=== PATIENT | male | born 1955 | race African-American/Black ===

== ENCOUNTER 2016-06-18 14:06 | Emergency (ER) | payer OTHER, MEDICAID ==
[~2016-06-18] VITALS: Ht 177.8 cm; Wt 65.0 kg
[~2016-06-18 14:06] MED LIST: ALBU2.5V13 INH; ALBU6.7H INH; ALPR-395 PO; ASPI-1035 PO; AZIT500T5 PO; CARI250T PO; CYPR4TAB33 PO; D-ME118S13 PO; DIAZ10TA4 PO; DICL75TA5 PO; FAMO20TA96 PO; FAMO40TA7 PO; FLUT1DIS3 INH; HYDR-1348 PO; METF500T PO; MULT-1146 PO; MULT-348 PO; PRAV40TA58 PO; TAMS0.4C31 PO
[2016-06-18] MEDS ORDERED: IPRATROPIUM/ALBUTEROL 0.5-3(2.5)MG/3ML NEB HHN ONE (15:30)
[2016-06-18 15:46] LABS: CLARITY URINE CLOUDY (CLEAR); COLOR URINE YELLOW (YELLOW); GLUCOSE URINE NEGATIVE (NEGATIVE); KETONES URINE NEGATIVE (NEGATIVE); LEUKOCYTE ESTERASE URINE NEGATIVE (NEGATIVE); NITRITE URINE NEGATIVE (NEGATIVE); OCCULT BLOOD URINE NEGATIVE (NEGATIVE); PH URINE 7.5 (4.5-8.0); PROTEIN URINE NEGATIVE (NEGATIVE); SPECIFIC GRAVITY URINE 1.016 (1.005-1.030); UROBILINOGEN URINE 0.2 E.U./dL (0.2-1.0)
[2016-06-18 15:50] LABS: BACTERIA URINE NONE SEEN; CALCIUM PHOSPHATE CRYSTALS UR NONE SEEN /lpf; RBC URINE NONE SEEN /hpf (0-2); SQUAMOUS EPITHELIAL CELL URINE NONE SEEN /lpf (RARE/1+); WAXY CASTS URINE NONE SEEN /lpf; WBC URINE NONE SEEN /hpf (0-2); YEAST URINE NONE SEEN
[2016-06-18 17:17] LABS: BASOPHILS % 0.8 % (0.0-2.0); HEMATOCRIT. 38.4 % (42.0-52.0); HEMOGLOBIN. 12.9 g/dL (14.0-18.0); LYMPHOCYTES % 27.6 % (20.0-50.0); MEAN CORPUSCULAR HEMOGLOBIN 30.8 pg (28.0-32.0); MEAN CORPUSCULAR HGB CONC 33.7 g/dL (31.0-37.0); MEAN CORPUSCULAR VOLUME 91.3 fL (80.0-94.0); MEAN PLATELET VOLUME 7.3 fl (7.4-10.4); MONOCYTES % 11.4 % (2.0-8.0); NEUTROPHILS % 55.2 % (40.0-76.0); PLATELET 225 x1000/uL (130-400); RED BLOOD CELL COUNT 4.21 mill/uL (4.7-6.1); RED CELL DISTRIBUTION WIDTH 14.4 % (11.6-14.6); WHITE BLOOD COUNT 4.7 x1000/uL (4.5-11.0)
[2016-06-18 17:21] LABS: INR 1.1; PROTHROMBIN TIME 11.8 sec
[2016-06-18] MEDS ORDERED: ONDANSETRON 4MG ODT PO ONE (17:30)
[2016-06-18] MEDS ORDERED: MORPHINE SULFATE 10 MG/ML CPJ IM ONE (17:30)
[2016-06-18 17:56] LABS: INDEX HEMOLYSI 1 (1-3)
[2016-06-18 18:10] LABS: ALANINE AMINOTRANSFERASE 30 IU/L (13-61); ALBUMIN 3.1 g/dL (3.4-5.0); ANION GAP 10; CALCIUM 8.8 mg/dL (8.5-10.1); CARBON DIOXIDE 28 mEq/L (21-32); CHLORIDE 106 mEq/L (98-107); NT PRO B-TYPE NATRIURETIC PEP 98 pg/mL (5-125); UREA NITROGEN BLOOD 12 mg/dL (7-21); eGFR > 60 mL/min (>60)
[2016-06-18 18:11] LABS: LIPASE 157 IU/L (73-393)
[2016-06-18] MEDS ORDERED: HYDROCODONE/ACETAMINOPHEN 5/325MG TABLET PO ONE (18:30)
[2016-06-18 18:31] VITALS: BP 146/95
== END 2016-06-18 19:21 | disposition home or self-care (01) ==
LOC: ER 14:24
DX: R55 Syncope and collapse (principal); M25.512 Pain in left shoulder; M25.561 Pain in right knee; M25.562 Pain in left knee; J45.909 Unspecified asthma, uncomplicated; J44.9 Chronic obstructive pulmonary disease, unspecified; G43.909 Migraine, unspecified, not intractable, without status migrainosus; Z88.0 Allergy status to penicillin; Z88.2 Allergy status to sulfonamides; Z79.82 Long term (current) use of aspirin; Z79.01 Long term (current) use of anticoagulants
CPT/HCPCS: 36415; 70450; 71010; 73030; 73562; 73590; 80053; 81001; 83690; 83880; 84484; 85025; 85610; 93005; 94640; 96372; 99285; J2270; Q0162; J7620

== ENCOUNTER 2016-11-01 20:50 | Emergency (ER) | payer OTHER, MEDICAID ==
[~2016-11-01] VITALS: Ht 182.9 cm; Wt 66.0 kg
[~2016-11-01 20:50] MED LIST changes: -ALPR-395 PO; -ASPI-1035 PO; +ASPI-1158 PO; -AZIT500T5 PO; -CYPR4TAB33 PO; -D-ME118S13 PO; -DIAZ10TA4 PO; -DICL75TA5 PO; -FAMO20TA96 PO; -FAMO40TA7 PO; -FLUT1DIS3 INH; -HYDR-1348 PO; -METF500T PO; -MULT-1146 PO; -MULT-348 PO; -PRAV40TA58 PO; -TAMS0.4C31 PO
[2016-11-01] MEDS ORDERED: SODIUM CHLORIDE 0.9% 1,000 ML IV ONE (21:22)
[2016-11-01] MEDS ORDERED: KETOROLAC 15MG/ML VIAL IV ONE (21:30)
[2016-11-01 21:42] LABS: BASOPHILS % 0.4 % (0.0-2.0); HEMOGLOBIN. 13.9 g/dL (14.0-18.0); LYMPHOCYTES % 14.6 % (20.0-50.0); MEAN CORPUSCULAR HEMOGLOBIN 30.5 pg (28.0-32.0); MEAN CORPUSCULAR VOLUME 90.3 fL (80.0-94.0); MEAN PLATELET VOLUME 7.4 fl (7.4-10.4); MONOCYTES % 7.2 % (2.0-8.0); NEUTROPHILS % 75.8 % (40.0-76.0); PLATELET 214 x1000/uL (130-400); RED BLOOD CELL COUNT 4.54 mill/uL (4.7-6.1); RED CELL DISTRIBUTION WIDTH 14.5 % (11.6-14.6)
[2016-11-01 21:49] LABS: INR 1.1; PROTHROMBIN TIME 11.4 sec
[2016-11-01 21:55] LABS: AMMONIA 21 uMol/L (<32)
[2016-11-01 21:59] LABS: CARBON DIOXIDE 35 mEq/L (21-32); CHLORIDE 102 mEq/L (98-107); ETHANOL BLOOD < 10 mg/dL; TROPONIN I < 0.02 ng/mL (0.00-0.04)
[2016-11-01] MEDS ORDERED: MORPHINE SULFATE 4 MG/ML CPJ (NOT FOR IM USE) IV ONE (22:30)
[2016-11-01 22:32] LABS: CLARITY URINE CLOUDY (CLEAR); COLOR URINE YELLOW (YELLOW); KETONES URINE NEGATIVE (NEGATIVE); LEUKOCYTE ESTERASE URINE NEGATIVE (NEGATIVE); NITRITE URINE NEGATIVE (NEGATIVE); OCCULT BLOOD URINE NEGATIVE (NEGATIVE); PH URINE 7.5 (4.5-8.0); PROTEIN URINE NEGATIVE (NEGATIVE); SPECIFIC GRAVITY URINE 1.013 (1.005-1.030); UROBILINOGEN URINE 0.2 E.U./dL (0.2-1.0)
[2016-11-01 22:42] LABS: *AMPHETAMINES SCREEN URINE NEGATIVE (NEGATIVE); *BARBITURATES SCREEN URINE NEGATIVE (NEGATIVE); *BENZODIAZEPINES SCREEN URINE NEGATIVE (NEGATIVE); *COCAINE SCREEN URINE NEGATIVE (NEGATIVE); CANNABINOID URINE SCREEN NEGATIVE (NEGATIVE); METHADONE URINE SCREEN NEGATIVE (NEGATIVE); OPIATES URINE SCREEN NEGATIVE (NEGATIVE); PHENCYCLIDINE URINE SCREEN NEGATIVE (NEGATIVE)
[2016-11-01 23:49] VITALS: BP 146/87
== END 2016-11-01 23:55 | disposition home or self-care (01) ==
LOC: ER 20:51
DX: R51 Headache (principal); E11.65 Type 2 diabetes mellitus with hyperglycemia; J44.9 Chronic obstructive pulmonary disease, unspecified; F17.200 Nicotine dependence, unspecified, uncomplicated; F12.10 Cannabis abuse, uncomplicated; F43.10 Post-traumatic stress disorder, unspecified; Z88.0 Allergy status to penicillin; Z79.82 Long term (current) use of aspirin
CPT/HCPCS: 36415; 70450; 71010; 80053; 80305; 80307; 80329; 81001; 82140; 83690; 83880; 84443; 84484; 85025; 85610; 93005; 96361; 96374; 96375; 99285; G0482; J1885; J2270; J7030

== ENCOUNTER 2017-04-03 15:47 | Emergency (ER) | payer OTHER, MEDICAID ==
[~2017-04-03] VITALS: Ht 185.4 cm; Wt 63.0 kg
[2017-04-03 15:55] VITALS: BP 106/63
== END 2017-04-03 21:32 | disposition left against medical advice (07) ==
LOC: ER 16:17
DX: R06.02 Shortness of breath (principal); J44.9 Chronic obstructive pulmonary disease, unspecified; E11.9 Type 2 diabetes mellitus without complications; G43.909 Migraine, unspecified, not intractable, without status migrainosus; F12.10 Cannabis abuse, uncomplicated; Z79.82 Long term (current) use of aspirin; Z88.0 Allergy status to penicillin; Z88.2 Allergy status to sulfonamides; Z98.890 Other specified postprocedural states
CPT/HCPCS: 99281

== ENCOUNTER 2018-07-18 07:40 | Emergency (ER) | payer MEDICARE, MEDICAID ==
[~2018-07-18] VITALS: Ht 185.4 cm; Wt 67.0 kg
[2018-07-18 09:10] VITALS: BP 133/78
== END 2018-07-18 09:12 | disposition home or self-care (01) ==
LOC: ER 07:40
DX: G89.29 Other chronic pain (principal); I10 Essential (primary) hypertension; M25.512 Pain in left shoulder; J45.909 Unspecified asthma, uncomplicated; Z76.0 Encounter for issue of repeat prescription; Z88.0 Allergy status to penicillin; Z88.2 Allergy status to sulfonamides; Z79.899 Other long term (current) drug therapy
CPT/HCPCS: 99283

== ENCOUNTER 2018-07-23 15:54 | Emergency (ER) | payer MEDICARE, MEDICAID ==
[~2018-07-23] VITALS: Ht 185.4 cm; Wt 68.2 kg
[2018-07-23 18:20] LABS: BASOPHILS % 0.6 % (0.0-2.0); CHLORIDE 102 mEq/L (98-107); EOSINOPHILS % 1.6 % (0.0-5.0); HEMATOCRIT. 43.7 % (42.0-52.0); HEMOGLOBIN. 14.6 g/dL (14.0-18.0); LYMPHOCYTES % 14.4 % (20.0-50.0); MEAN CORPUSCULAR HEMOGLOBIN 30.5 pg (28.0-32.0); MEAN CORPUSCULAR VOLUME 91.1 fL (80.0-94.0); MEAN PLATELET VOLUME 7.5 fl (7.4-10.4); MONOCYTES % 7.4 % (2.0-8.0); PLATELET 251 x1000/uL (130-400); RED CELL DISTRIBUTION WIDTH 13.4 % (11.6-14.6)
[2018-07-23 18:24] LABS: ETHANOL BLOOD < 10 mg/dL
[2018-07-23] MEDS ORDERED: ACETAMINOPHEN 325MG TABLET PO STA (19:17)
[2018-07-23 20:52] LABS: CLARITY URINE CLEAR (CLEAR); COLOR URINE YELLOW (YELLOW); KETONES URINE 1+ (NEGATIVE); LEUKOCYTE ESTERASE URINE NEGATIVE (NEGATIVE); NITRITE URINE NEGATIVE (NEGATIVE); OCCULT BLOOD URINE NEGATIVE (NEGATIVE); PROTEIN URINE NEGATIVE (NEGATIVE); SPECIFIC GRAVITY URINE 1.021 (1.005-1.030); UROBILINOGEN URINE 0.2 E.U./dL (0.2-1.0)
[2018-07-23] MEDS ORDERED: KETOROLAC 30MG/ML VIAL IV NR (20:59)
[2018-07-23] MEDS ORDERED: METOCLOPRAMIDE HCL 10MG/2ML VIAL IV NR (21:00)
[2018-07-23 21:11] LABS: *AMPHETAMINES SCREEN URINE NEGATIVE (NEGATIVE); *BARBITURATES SCREEN URINE NEGATIVE (NEGATIVE); *BENZODIAZEPINES SCREEN URINE PRESUMTIVE POSITIVE (NEGATIVE); *COCAINE SCREEN URINE PRESUMTIVE POSITIVE (NEGATIVE); METHADONE URINE SCREEN NEGATIVE (NEGATIVE); OPIATES URINE SCREEN PRESUMTIVE POSITIVE (NEGATIVE)
[2018-07-23 21:12] LABS: CANNABINOID URINE SCREEN NEGATIVE (NEGATIVE); PHENCYCLIDINE URINE SCREEN NEGATIVE (NEGATIVE)
[2018-07-24 00:05] VITALS: BP 119/73
== END 2018-07-24 00:05 | disposition home or self-care (01) ==
LOC: ER 15:54
DX: G44.89 Other headache syndrome (principal); F19.10 Other psychoactive substance abuse, uncomplicated; E11.9 Type 2 diabetes mellitus without complications; F17.200 Nicotine dependence, unspecified, uncomplicated; J44.9 Chronic obstructive pulmonary disease, unspecified; Z88.0 Allergy status to penicillin; Z88.2 Allergy status to sulfonamides; Z98.890 Other specified postprocedural states
CPT/HCPCS: 36415; 80048; 80305; 80320; 81003; 85025; 96374; 96375; 99283; J1885; J2765; G0480

== ENCOUNTER 2018-07-29 05:29 | Emergency (ER) | payer MEDICARE, MEDICAID ==
[~2018-07-29] VITALS: Ht 185.4 cm; Wt 68.0 kg
[2018-07-29 06:45] VITALS: BP 121/60
== END 2018-07-29 06:45 | disposition home or self-care (01) ==
LOC: ER 05:29
DX: S91.204A Unspecified open wound of right lesser toe(s) with damage to nail, initial encounter (principal); E11.9 Type 2 diabetes mellitus without complications; J45.909 Unspecified asthma, uncomplicated; W26.9XXA Contact with unspecified sharp object(s), initial encounter; Y93.9 Activity, unspecified; Y92.9 Unspecified place or not applicable; Z88.0 Allergy status to penicillin; Z88.2 Allergy status to sulfonamides; Z79.82 Long term (current) use of aspirin
CPT/HCPCS: 99283

== ENCOUNTER 2018-09-11 07:28 | Emergency (ER) | payer MEDICARE, OTHER, MEDICAID ==
[~2018-09-11] VITALS: Ht 185.4 cm; Wt 69.0 kg
[2018-09-11] MEDS ORDERED: HYDROCODONE/ACETAMINOPHEN 5/325MG TABLET PO ONE (08:30)
[2018-09-11] MEDS ORDERED: ONDANSETRON 4MG ODT PO ONE (08:30)
[2018-09-11 10:40] VITALS: BP 132/89
== END 2018-09-11 10:55 | disposition home or self-care (01) ==
LOC: ER 07:28
DX: S22.42XA Multiple fractures of ribs, left side, initial encounter for closed fracture (principal); J45.909 Unspecified asthma, uncomplicated; F43.10 Post-traumatic stress disorder, unspecified; Z98.890 Other specified postprocedural states; Z88.0 Allergy status to penicillin; Z88.2 Allergy status to sulfonamides; Z79.82 Long term (current) use of aspirin; Z79.899 Other long term (current) drug therapy; W18.39XA Other fall on same level, initial encounter; Y93.89 Activity, other specified; Y92.89 Other specified places as the place of occurrence of the external cause; Y99.8 Other external cause status
CPT/HCPCS: 71101; 99283; Q0162

== ENCOUNTER 2018-09-12 03:32 | Emergency (ER) | payer MEDICARE, OTHER, MEDICAID ==
[~2018-09-12] VITALS: Ht 182.9 cm; Wt 70.0 kg
[2018-09-12] MEDS ORDERED: IPRATROPIUM BROMIDE (0.02%) 0.5MG/2.5ML NEB HHN STA (03:54)
[2018-09-12] MEDS ORDERED: ALBUTEROL (0.083%) 2.5MG/3ML NEB HHN STA (03:54)
[2018-09-12] MEDS ORDERED: PREDNISONE 20MG TABLET PO STA (03:54)
[2018-09-12] MEDS ORDERED: HYDROCODONE/ACETAMINOPHEN 10/325MG TABLET PO ONE (04:00)
[2018-09-12] MEDS ORDERED: LIDOCAINE 5% PATCH TOP SCH (04:00)
[2018-09-12 04:37] VITALS: BP 128/79
[2018-09-12] MEDS ORDERED: KETOROLAC 60MG/2ML VIAL IM ONE (04:45)
== END 2018-09-12 04:49 | disposition home or self-care (01) ==
LOC: ER 03:32
DX: R07.81 Pleurodynia (principal); J45.909 Unspecified asthma, uncomplicated; F43.10 Post-traumatic stress disorder, unspecified; Z88.0 Allergy status to penicillin; Z88.2 Allergy status to sulfonamides; Z79.899 Other long term (current) drug therapy; Z98.890 Other specified postprocedural states
CPT/HCPCS: 94640; 99284; J7512; J7611

== ENCOUNTER 2018-10-04 08:51 | Emergency (ER) | payer MEDICARE, OTHER, MEDICAID ==
[~2018-10-04] VITALS: Ht 185.4 cm; Wt 59.0 kg
[2018-10-04] MEDS ORDERED: ACETAMINOPHEN WITH CODEINE 300/30MG TABLET PO ONE (10:00)
[2018-10-04 10:15] VITALS: BP 115/71
== END 2018-10-04 10:16 | disposition home or self-care (01) ==
LOC: ER 08:51
DX: S22.42XA Multiple fractures of ribs, left side, initial encounter for closed fracture (principal); R07.81 Pleurodynia; J45.909 Unspecified asthma, uncomplicated; Z88.0 Allergy status to penicillin; Z79.82 Long term (current) use of aspirin; Z88.2 Allergy status to sulfonamides; W19.XXXA Unspecified fall, initial encounter; Y93.89 Activity, other specified; Y92.89 Other specified places as the place of occurrence of the external cause
CPT/HCPCS: 99283

== ENCOUNTER 2018-11-10 05:09 | Emergency (ER) | payer MEDICARE, MEDICAID ==
[~2018-11-10] VITALS: Ht 185.4 cm; Wt 71.0 kg
[2018-11-10] MEDS ORDERED: ACETAMINOPHEN 325MG TABLET PO ONE (07:45)
[2018-11-10 08:00] VITALS: BP 132/84
== END 2018-11-10 08:30 | disposition home or self-care (01) ==
LOC: ER 05:09
DX: R07.81 Pleurodynia (principal); E11.9 Type 2 diabetes mellitus without complications; J45.909 Unspecified asthma, uncomplicated; Z88.0 Allergy status to penicillin; Z88.2 Allergy status to sulfonamides; Z79.82 Long term (current) use of aspirin
CPT/HCPCS: 71101; 99283

== ENCOUNTER 2018-11-19 01:35 | Inpatient (IN) | payer MEDICARE, MEDICAID ==
[~2018-11-19] VITALS: Ht 185.4 cm; Wt 68.0 kg
[2018-11-19] MEDS ORDERED: ONDANSETRON HCL 4MG/2ML INJ IV STA (02:16)
[2018-11-19] MEDS ORDERED: SODIUM CHLORIDE 0.9% 1,000 ML IV ONE (02:16)
[2018-11-19] MEDS ORDERED: FAMOTIDINE 20MG/2ML VIAL IV ONE (02:30)
[2018-11-19] MEDS ORDERED: MORPHINE SULFATE 2 MG/ML CPJ (NOT FOR IM USE) IV ONE (02:30)
[2018-11-19 03:25] LABS: HEMATOCRIT. 49.9 % (42.0-52.0); HEMOGLOBIN. 16.9 g/dL (14.0-18.0); MEAN CORPUSCULAR VOLUME 91.6 fL (80.0-94.0); MEAN PLATELET VOLUME 7.4 fl (7.4-10.4); PLATELET 250 x1000/uL (130-400); RED BLOOD CELL COUNT 5.45 mill/uL (4.7-6.1); RED CELL DISTRIBUTION WIDTH 13.9 % (11.6-14.6)
[2018-11-19 03:41] LABS: CHLORIDE 104 mEq/L (98-107)
[2018-11-19 03:49] LABS: PLATELET ESTIMATE NORMAL
[2018-11-19 04:00] LABS: CLARITY URINE CLEAR (CLEAR); COLOR URINE YELLOW (YELLOW); KETONES URINE TRACE (NEGATIVE); LEUKOCYTE ESTERASE URINE NEGATIVE (NEGATIVE); NITRITE URINE NEGATIVE (NEGATIVE); OCCULT BLOOD URINE NEGATIVE (NEGATIVE); PROTEIN URINE NEGATIVE (NEGATIVE); SPECIFIC GRAVITY URINE 1.025 (1.005-1.030); UROBILINOGEN URINE 0.2 E.U./dL (0.2-1.0)
[2018-11-19] MEDS ORDERED: KETOROLAC 15MG/ML VIAL IV ONE (05:15)
[2018-11-19] MEDS ORDERED: CLONIDINE 0.1MG TABLET PO PRN (07:00)
[2018-11-19] MEDS ORDERED: ONDANSETRON HCL 4MG/2ML INJ IV PRN (07:00)
[2018-11-19] MEDS ORDERED: DOCUSATE SODIUM 100MG CAPSULE PO PRN (07:00)
[2018-11-19] MEDS ORDERED: PANTOPRAZOLE SODIUM 40 MG/VIAL IV SCH (07:00)
[2018-11-19] MEDS ORDERED: ACETAMINOPHEN 325MG TABLET PO PRN (07:00)
[2018-11-19 08:00] VITALS: BP 133/80
[2018-11-19] MEDS: DEXT 5%/0.45% NACL 1000ML 1,000 ML IV SCH (09:44)
[2018-11-19] MEDS ORDERED: ALBUTEROL 6.7GM HFA INHALER ORI PRN (10:30)
[2018-11-19] MEDS ORDERED: ALBUTEROL (0.083%) 2.5MG/3ML NEB HHN PRN (10:30)
[2018-11-19] MEDS: MORPHINE SULFATE 2 MG/ML CPJ (NOT FOR IM USE) IV PRN ×2 (10:32→20:10)
[2018-11-19] MEDS ORDERED: HYDR-4009 PO (10:39)
[2018-11-19 12:00] VITALS: BP 109/57
[2018-11-19] MEDS: FAMOTIDINE 20MG/2ML VIAL IV SCH ×2 (12:35→20:09)
[2018-11-19 16:00] VITALS: BP 142/75
[2018-11-19 20:00] VITALS: BP 122/72
[2018-11-20] VITALS (7 sets, daily range): BP systolic 105–129; BP diastolic 67–81
[2018-11-20] MEDS: DEXT 5%/0.45% NACL 1000ML 1,000 ML IV SCH ×2 (00:56→11:03)
[2018-11-20] MEDS: MORPHINE SULFATE 2 MG/ML CPJ (NOT FOR IM USE) IV PRN ×3 (05:36→22:40)
[2018-11-20 06:57] LABS: CHLORIDE 108 mEq/L (98-107); HEMATOCRIT. 39.9 % (42.0-52.0); HEMOGLOBIN. 13.5 g/dL (14.0-18.0); MEAN CORPUSCULAR HEMOGLOBIN 30.9 pg (28.0-32.0); MEAN PLATELET VOLUME 7.4 fl (7.4-10.4); PLATELET 197 x1000/uL (130-400); RED BLOOD CELL COUNT 4.38 mill/uL (4.7-6.1); RED CELL DISTRIBUTION WIDTH 13.6 % (11.6-14.6)
[2018-11-20 10:20] LABS: PLATELET ESTIMATE NORMAL
[2018-11-20] MEDS: FAMOTIDINE 20MG/2ML VIAL IV SCH ×2 (10:57→20:21)
[2018-11-20] MEDS: HYDROCODONE/ACETAMINOPHEN 5/325MG TABLET PO PRN ×2 (10:58→18:28)
[2018-11-20] MEDS: ENOXAPARIN 40MG/0.4ML SYR SUBCUT SCH (14:40)
[2018-11-21] MEDS: DEXT 5%/0.45% NACL 1000ML 1,000 ML IV SCH ×2 (01:25→13:25)
[2018-11-21 04:00] VITALS: BP 130/82
[2018-11-21] MEDS: HYDROCODONE/ACETAMINOPHEN 5/325MG TABLET PO PRN ×3 (04:55→14:52)
[2018-11-21 08:00] VITALS: BP 116/71
[2018-11-21] MEDS ORDERED: CARISOPRODOL 350 MG TABLET PO SCH (09:00)
[2018-11-21] MEDS: ENOXAPARIN 40MG/0.4ML SYR SUBCUT SCH (09:00)
[2018-11-21] MEDS: FAMOTIDINE 20MG/2ML VIAL IV SCH ×2 (09:00→21:27)
[2018-11-21] MEDS: CARISOPRODOL 350 MG TABLET PO SCH ×2 (09:13→17:58)
[2018-11-21 12:00] VITALS: BP 108/65
[2018-11-21 16:00] VITALS: BP 140/87
[2018-11-21] MEDS: MORPHINE SULFATE 2 MG/ML CPJ (NOT FOR IM USE) IV PRN (19:07)
[2018-11-21 20:00] VITALS: BP 138/81
[2018-11-21] MEDS ORDERED: TAMSULOSIN HCL 0.4MG SR CAPSULE PO SCH (21:00)
[2018-11-22] VITALS: BP 131/85
[2018-11-22] MEDS: DEXT 5%/0.45% NACL 1000ML 1,000 ML IV SCH (03:10)
[2018-11-22 04:00] VITALS: BP 107/86
[2018-11-22] MEDS: MORPHINE SULFATE 2 MG/ML CPJ (NOT FOR IM USE) IV PRN (05:48)
[2018-11-22 06:32] LABS: BASOPHILS % 0.3 % (0.0-2.0); EOSINOPHILS % 5.1 % (0.0-5.0); HEMATOCRIT. 42.1 % (42.0-52.0); HEMOGLOBIN. 14.6 g/dL (14.0-18.0); LYMPHOCYTES % 28.2 % (20.0-50.0); MEAN CORPUSCULAR VOLUME 89.3 fL (80.0-94.0); MONOCYTES % 14.8 % (2.0-8.0); NEUTROPHILS % 51.6 % (40.0-76.0); PLATELET 225 x1000/uL (130-400); RED BLOOD CELL COUNT 4.71 mill/uL (4.7-6.1); RED CELL DISTRIBUTION WIDTH 13.5 % (11.6-14.6)
[2018-11-22 07:02] LABS: CHLORIDE 106 mEq/L (98-107)
[2018-11-22 08:06] VITALS: BP 116/62
[2018-11-22] MEDS: FAMOTIDINE 20MG/2ML VIAL IV SCH (08:48)
[2018-11-22] MEDS: CARISOPRODOL 350 MG TABLET PO SCH (08:48)
[2018-11-22] MEDS: ENOXAPARIN 40MG/0.4ML SYR SUBCUT SCH (08:49)
[2018-11-22 12:10] VITALS: BP 132/80
[2018-11-22 12:19] VITALS: BP 132/80
[2018-11-22 12:27] VITALS: BP 132/80
[2018-11-22] MEDS: HYDROCODONE/ACETAMINOPHEN 5/325MG TABLET PO PRN (12:27)
== END 2018-11-22 14:15 | disposition home health service (06) | DRG 392 ==
LOC: ER 01:35 → 6WST 05:43 → ENRESERV 07:01
PROVIDERS: ADMIT Hospitalist; ATTEND Hospitalist
DX: K52.9 Noninfective gastroenteritis and colitis, unspecified (principal); E11.9 Type 2 diabetes mellitus without complications; J45.909 Unspecified asthma, uncomplicated; N40.0 Benign prostatic hyperplasia without lower urinary tract symptoms; Z79.899 Other long term (current) drug therapy
CPT/HCPCS: 36415; 71045; 74176; 81003; 82270; 82962; 83605; 83880; 84484; 93005; 93970; 96374; 96375; 99285; J1650; J1885; J2270; J2405; J3490; J7030

== ENCOUNTER 2018-12-30 12:48 | Emergency (ER) | payer MEDICARE, MEDICAID ==
[~2018-12-30 12:48] MED LIST changes: +HYDR-4009 PO
== END 2018-12-30 15:01 | disposition left against medical advice (07) ==
LOC: ER 12:48
DX: Z53.21 Procedure and treatment not carried out due to patient leaving prior to being seen by health care provider (principal)

== ENCOUNTER 2018-12-31 03:53 | Emergency (ER) | payer MEDICARE, MEDICAID ==
[~2018-12-31] VITALS: Ht 185.4 cm; Wt 70.0 kg
[2018-12-31] MEDS ORDERED: PREDNISONE 20MG TABLET PO ONE (06:30)
[2018-12-31] MEDS ORDERED: ALBUTEROL (0.083%) 2.5MG/3ML NEB HHN ONE (06:30)
[2018-12-31 06:58] LABS: BASOPHILS % 0.9 % (0.0-2.0); EOSINOPHILS % 10.9 % (0.0-5.0); HEMATOCRIT. 41.8 % (42.0-52.0); HEMOGLOBIN. 14.4 g/dL (14.0-18.0); LYMPHOCYTES % 24.9 % (20.0-50.0); MEAN CORPUSCULAR HEMOGLOBIN 30.9 pg (28.0-32.0); MEAN CORPUSCULAR VOLUME 89.4 fL (80.0-94.0); MEAN PLATELET VOLUME 7.5 fl (7.4-10.4); NEUTROPHILS % 50.3 % (40.0-76.0); PLATELET 284 x1000/uL (130-400); RED BLOOD CELL COUNT 4.67 mill/uL (4.7-6.1); RED CELL DISTRIBUTION WIDTH 13.8 % (11.6-14.6)
[2018-12-31 07:03] LABS: CLARITY URINE CLEAR (CLEAR); COLOR URINE YELLOW (YELLOW); KETONES URINE TRACE (NEGATIVE); LEUKOCYTE ESTERASE URINE NEGATIVE (NEGATIVE); NITRITE URINE NEGATIVE (NEGATIVE); OCCULT BLOOD URINE NEGATIVE (NEGATIVE); PH URINE 5.5 (4.5-8.0); PROTEIN URINE NEGATIVE (NEGATIVE); SPECIFIC GRAVITY URINE 1.014 (1.005-1.030)
[2018-12-31 07:05] LABS: CHLORIDE 106 mEq/L (98-107)
[2018-12-31 08:40] VITALS: BP 144/75
== END 2018-12-31 09:20 | disposition home or self-care (01) ==
LOC: ER 03:53
DX: J40 Bronchitis, not specified as acute or chronic (principal); E11.9 Type 2 diabetes mellitus without complications; Z96.659 Presence of unspecified artificial knee joint; Z98.890 Other specified postprocedural states; Z79.82 Long term (current) use of aspirin; Z79.899 Other long term (current) drug therapy
CPT/HCPCS: 36415; 71045; 80053; 81003; 83880; 84484; 85025; 87804; 93005; 94640; 99284; J7512; J7611

== ENCOUNTER 2019-01-09 05:40 | Inpatient (IN) | payer MEDICARE, MEDICAID, OTHER ==
[~2019-01-09] VITALS: Ht 185.4 cm; Wt 70.3 kg
[2019-01-09] MEDS ORDERED: IPRATROPIUM BROMIDE (0.02%) 0.5MG/2.5ML NEB HHN STA (06:46)
[2019-01-09] MEDS ORDERED: PREDNISONE 20MG TABLET PO STA (06:46)
[2019-01-09] MEDS ORDERED: ALBUTEROL (0.083%) 2.5MG/3ML NEB HHN STA (06:46)
[2019-01-09] MEDS ORDERED: ONDANSETRON 4MG ODT PO STA (06:46)
[2019-01-09] MEDS ORDERED: CEFTRIAXONE 1 G PREMIX 50 ML IV ONE (08:15)
[2019-01-09] MEDS ORDERED: AZITHROMYCIN 500 MG in DEXT 5% WATER 250 ML IV SCH (08:15)
[2019-01-09 08:30] LABS: BASOPHILS % 0.4 % (0.0-2.0); EOSINOPHILS % 3.5 % (0.0-5.0); HEMATOCRIT. 40.8 % (42.0-52.0); HEMOGLOBIN. 13.6 g/dL (14.0-18.0); LYMPHOCYTES % 27.1 % (20.0-50.0); MEAN CORPUSCULAR HEMOGLOBIN 30.6 pg (28.0-32.0); MEAN CORPUSCULAR VOLUME 91.5 fL (80.0-94.0); MEAN PLATELET VOLUME 7.3 fl (7.4-10.4); MONOCYTES % 8.3 % (2.0-8.0); NEUTROPHILS % 60.7 % (40.0-76.0); PLATELET 224 x1000/uL (130-400); RED BLOOD CELL COUNT 4.46 mill/uL (4.7-6.1); RED CELL DISTRIBUTION WIDTH 13.7 % (11.6-14.6)
[2019-01-09 08:37] LABS: CHLORIDE 107 mEq/L (98-107)
[2019-01-09 08:38] LABS: INR 1.1; PROTHROMBIN TIME 11.4 sec (9.6-11.0)
[2019-01-09] MEDS ORDERED: ACETAMINOPHEN 325MG TABLET PO ONE (11:30)
[2019-01-09] MEDS ORDERED: ACETAMINOPHEN 325MG TABLET PO PRN (12:00)
[2019-01-09] MEDS ORDERED: ONDANSETRON HCL 4MG/2ML INJ IV PRN (12:00)
[2019-01-09] MEDS ORDERED: GUAIFENESIN 200MG/10ML SUGAR FREE UDC PO PRN (12:00)
[2019-01-09] MEDS ORDERED: MAGNESIUM/ALUMINUM HYDROXIDE/SIMETHICONE 30ML UDC PO PRN (12:00)
[2019-01-09] MEDS ORDERED: IPRATROPIUM/ALBUTEROL 0.5-3(2.5)MG/3ML NEB NEB PRN (12:00)
[2019-01-09] MEDS ORDERED: DOCUSATE SODIUM 100MG CAPSULE PO PRN (12:00)
[2019-01-09] MEDS ORDERED: CLONIDINE 0.1MG TABLET PO PRN (12:00)
[2019-01-09] MEDS ORDERED: LORA2TAB2 PO (18:02)
[2019-01-09] MEDS ORDERED: FAMO20TA8 PO (18:02)
[2019-01-09] MEDS ORDERED: MEGE40TA27 PO (18:02)
[2019-01-09] MEDS ORDERED: METF-414 PO (18:02)
[2019-01-09] MEDS ORDERED: ZOLP10TA2 PO (18:02)
[2019-01-09] MEDS ORDERED: ATOR40TA70 PO (18:02)
[2019-01-09] MEDS ORDERED: P50 PO (18:02)
[2019-01-09 18:09] VITALS: BP 152/89
[2019-01-09] MEDS: ENOXAPARIN 40MG/0.4ML SYR SUBCUT SCH (18:28)
[2019-01-09] MEDS ORDERED: DEXTROSE 50% WATER 50ML SYRINGE IV PRN (18:30)
[2019-01-09] MEDS: INSULIN LISPRO 100 UNITS/ML SUBCUT SCH ×2 (18:35→20:31)
[2019-01-09 20:00] VITALS: BP 147/86
[2019-01-09] MEDS: BLOOD SUGAR DIAGNOSTIC STRIP TEST SCH (20:16)
[2019-01-09] MEDS: HYDROCODONE/ACETAMINOPHEN 5/325MG TABLET PO PRN (20:26)
[2019-01-09] MEDS: IPRATROPIUM/ALBUTEROL 0.5-3(2.5)MG/3ML NEB NEB SCH (21:55)
[2019-01-09] MEDS: ZOLPIDEM TARTRATE 5MG TABLET PO PRN (22:02)
[2019-01-10] VITALS: BP 119/64
[2019-01-10 01:32] LABS: CLARITY URINE CLEAR (CLEAR); COLOR URINE YELLOW (YELLOW); KETONES URINE NEGATIVE (NEGATIVE); LEUKOCYTE ESTERASE URINE NEGATIVE (NEGATIVE); NITRITE URINE NEGATIVE (NEGATIVE); OCCULT BLOOD URINE NEGATIVE (NEGATIVE); PH URINE 7.5 (4.5-8.0); PROTEIN URINE NEGATIVE (NEGATIVE)
[2019-01-10] MEDS: HYDROCODONE/ACETAMINOPHEN 5/325MG TABLET PO PRN ×3 (02:46→16:54)
[2019-01-10] MEDS: IPRATROPIUM/ALBUTEROL 0.5-3(2.5)MG/3ML NEB NEB SCH ×4 (03:27→21:32)
[2019-01-10 04:00] VITALS: BP 154/98
[2019-01-10] MEDS: BLOOD SUGAR DIAGNOSTIC STRIP TEST SCH ×4 (05:46→21:30)
[2019-01-10 06:29] LABS: CHLORIDE 106 mEq/L (98-107)
[2019-01-10 06:35] LABS: BASOPHILS % 0.2 % (0.0-2.0); EOSINOPHILS % 0.2 % (0.0-5.0); HEMATOCRIT. 38.9 % (42.0-52.0); LYMPHOCYTES % 17.5 % (20.0-50.0); MEAN CORPUSCULAR HEMOGLOBIN 30.4 pg (28.0-32.0); MEAN CORPUSCULAR VOLUME 90.7 fL (80.0-94.0); MEAN PLATELET VOLUME 7.6 fl (7.4-10.4); MONOCYTES % 9.2 % (2.0-8.0); NEUTROPHILS % 72.9 % (40.0-76.0); PLATELET 252 x1000/uL (130-400); RED BLOOD CELL COUNT 4.28 mill/uL (4.7-6.1); RED CELL DISTRIBUTION WIDTH 13.6 % (11.6-14.6)
[2019-01-10 06:36] LABS: LDL CHOLESTEROL 48 mg/dL (5-100)
[2019-01-10 06:37] LABS: HDL CHOLESTEROL 49 mg/dL (40-59)
[2019-01-10] MEDS: INSULIN LISPRO 100 UNITS/ML SUBCUT SCH ×4 (06:45→21:40)
[2019-01-10 08:00] VITALS: BP 114/73
[2019-01-10] MEDS: ASPIRIN 81MG EC TABLET PO SCH (09:35)
[2019-01-10] MEDS ORDERED: CEFTRIAXONE 1 G PREMIX 50 ML IV SCH (10:00)
[2019-01-10] MEDS ORDERED: AZITHROMYCIN 500 MG in DEXT 5% WATER 250 ML IV SCH (10:30)
[2019-01-10 12:00] VITALS: BP 133/85
[2019-01-10] MEDS ORDERED: INFLUENZA VIRUS VACCINE(AFLURIA) 0.5ML SYR IM ONE (12:00)
[2019-01-10 15:22] VITALS: BP 122/79
[2019-01-10] MEDS: BISACODYL 5MG TABLET PO SCH (16:34)
[2019-01-10] MEDS: DOCUSATE SODIUM 100MG CAPSULE PO SCH (16:35)
[2019-01-10] MEDS: ENOXAPARIN 40MG/0.4ML SYR SUBCUT SCH (18:19)
[2019-01-10 20:00] VITALS: BP 120/68
[2019-01-10] MEDS: ZOLPIDEM TARTRATE 5MG TABLET PO PRN (21:38)
[2019-01-10] MEDS: GUAIFENESIN 600MG ER TABLET PO SCH (21:44)
[2019-01-11 00:20] VITALS: BP 109/67
[2019-01-11] MEDS: HYDROCODONE/ACETAMINOPHEN 5/325MG TABLET PO PRN ×2 (00:27→06:08)
[2019-01-11] MEDS: IPRATROPIUM/ALBUTEROL 0.5-3(2.5)MG/3ML NEB NEB SCH ×2 (02:06→08:35)
[2019-01-11 04:00] VITALS: BP 104/70
[2019-01-11] MEDS: BLOOD SUGAR DIAGNOSTIC STRIP TEST SCH ×2 (05:59→12:04)
[2019-01-11] MEDS: INSULIN LISPRO 100 UNITS/ML SUBCUT SCH ×2 (05:59→12:04)
[2019-01-11 08:00] VITALS: BP 108/78
[2019-01-11] MEDS ORDERED: CEFTRIAXONE 1 G PREMIX 50 ML IV SCH (09:00)
[2019-01-11] MEDS: GUAIFENESIN 600MG ER TABLET PO SCH (09:45)
[2019-01-11] MEDS: BISACODYL 5MG TABLET PO SCH (09:45)
[2019-01-11] MEDS: DOCUSATE SODIUM 100MG CAPSULE PO SCH (09:45)
[2019-01-11] MEDS: ASPIRIN 81MG EC TABLET PO SCH (09:45)
[2019-01-11] MEDS ORDERED: AZITHROMYCIN 500 MG in DEXT 5% WATER 250 ML IV SCH (10:00)
[2019-01-11 12:00] VITALS: BP 105/68
[2019-01-11 13:20] VITALS: BP 105/68
== END 2019-01-11 15:00 | disposition home or self-care (01) | DRG 193 ==
LOC: ER 05:40 → 5WST 09:31 → SUPCPDRO 11:47 → ENRESERV 17:08
PROVIDERS: ADMIT Hospitalist; ATTEND Hospitalist
DX: J18.1 Lobar pneumonia, unspecified organism (principal); J96.20 Acute and chronic respiratory failure, unspecified whether with hypoxia or hypercapnia; E44.0 Moderate protein-calorie malnutrition; J44.0 Chronic obstructive pulmonary disease with (acute) lower respiratory infection; J44.1 Chronic obstructive pulmonary disease with (acute) exacerbation; J45.901 Unspecified asthma with (acute) exacerbation; J98.11 Atelectasis; B18.2 Chronic viral hepatitis C; D64.9 Anemia, unspecified; R10.9 Unspecified abdominal pain; E11.9 Type 2 diabetes mellitus without complications; F17.210 Nicotine dependence, cigarettes, uncomplicated; I10 Essential (primary) hypertension; Z96.659 Presence of unspecified artificial knee joint; G47.00 Insomnia, unspecified; G89.29 Other chronic pain; K59.09 Other constipation; N40.0 Benign prostatic hyperplasia without lower urinary tract symptoms; Z80.9 Family history of malignant neoplasm, unspecified; Z83.3 Family history of diabetes mellitus; Z68.20 Body mass index [BMI] 20.0-20.9, adult; Z79.84 Long term (current) use of oral hypoglycemic drugs; Z79.899 Other long term (current) drug therapy
CPT/HCPCS: 36415; 71045; 71250; 80061; 81003; 82962; 83880; 84484; 90686; 93005; 93970; 94640; 99285; J0456; J0696; J1650; J1815; J7060; J7512; J7611; J7620; Q0162

== ENCOUNTER 2019-01-22 04:41 | Inpatient (IN) | payer MEDICARE, MEDICAID, OTHER ==
[~2019-01-22] VITALS: Ht 183.1 cm; Wt 64.0 kg
[2019-01-22] VITALS (7 sets, daily range): BP systolic 129–155; BP diastolic 67–90
[~2019-01-22 04:41] MED LIST changes: +ATOR40TA70 PO; +FAMO20TA8 PO; +LORA2TAB2 PO; +MEGE40TA27 PO; +METF-414 PO; +P50 PO; +ZOLP10TA2 PO
[2019-01-22] MEDS ORDERED: METHYLPREDNISOLONE SOD SUCC 125 MG/2 ML VIAL IV STA (06:58)
[2019-01-22] MEDS ORDERED: IPRATROPIUM BROMIDE (0.02%) 0.5MG/2.5ML NEB HHN STA (06:58)
[2019-01-22] MEDS ORDERED: ALBUTEROL (0.083%) 2.5MG/3ML NEB HHN STA (06:58)
[2019-01-22] MEDS ORDERED: PIPERACILLIN/TAZ 3.375G PREMIX 50 ML IV ONE (07:00)
[2019-01-22] MEDS ORDERED: VANCOMYCIN 1 G PREMIX 200 ML IV ONE (07:00)
[2019-01-22] MEDS ORDERED: SODIUM CHLORIDE 0.9% 1000ML BAG (SEPSIS BOLUS) IV ONE (07:00)
[2019-01-22 07:46] LABS: BASOPHILS % 0.6 % (0.0-2.0); EOSINOPHILS % 11.4 % (0.0-5.0); HEMATOCRIT. 44.4 % (42.0-52.0); LYMPHOCYTES % 25.8 % (20.0-50.0); MEAN CORPUSCULAR HEMOGLOBIN 31.2 pg (28.0-32.0); MEAN CORPUSCULAR VOLUME 92.7 fL (80.0-94.0); MEAN PLATELET VOLUME 7.4 fl (7.4-10.4); MONOCYTES % 9.7 % (2.0-8.0); NEUTROPHILS % 52.5 % (40.0-76.0); PLATELET 216 x1000/uL (130-400); RED BLOOD CELL COUNT 4.79 mill/uL (4.7-6.1); RED CELL DISTRIBUTION WIDTH 14.4 % (11.6-14.6)
[2019-01-22 07:50] LABS: CHLORIDE 105 mEq/L (98-107)
[2019-01-22 07:53] LABS: PARTIAL THROMBOPLASTIN TIME 27.2 sec (23.4-31.0); PROTHROMBIN TIME 10.7 sec (9.6-11.0)
[2019-01-22] MEDS ORDERED: ASPIRIN 81MG TABLET PO ONE (08:00)
[2019-01-22 08:12] LABS: CLARITY URINE CLEAR (CLEAR); COLOR URINE YELLOW (YELLOW); KETONES URINE NEGATIVE (NEGATIVE); LEUKOCYTE ESTERASE URINE NEGATIVE (NEGATIVE); NITRITE URINE NEGATIVE (NEGATIVE); OCCULT BLOOD URINE NEGATIVE (NEGATIVE); PROTEIN URINE NEGATIVE (NEGATIVE); SPECIFIC GRAVITY URINE 1.019 (1.005-1.030); UROBILINOGEN URINE 0.2 E.U./dL (0.2-1.0)
[2019-01-22 08:33] LABS: BG BASE EXCESS -6.7 mmol/L (-2.0-2.0); BG BILEVEL POS AIRWAY PRESSURE 15/5; BG CARBOXYHEMOGLOBIN 0.6 % (0.5-1.5); BG DEOXYHEMOGLOBIN 0.5 % (0.0-5.0); BG FRACTION INSPIRED OXYGEN 40; BG METHEMOGLOBIN 0.5 % (0.0-1.5); BG OXYGEN SATURATION 99.5 % (92.0-98.5); BG OXYHEMOGLOBIN 98.4 % (94.0-97.0); BG PCO2 44.4 mmHg (35.0-45.0); BG PH 7.272 (7.350-7.450); BG SAMPLE SITE RIGHT BRACHIAL; BG TOTAL HEMOGLOBIN 13.9 g/dL (12.0-18.0); BG VENT MODE MASK - BIPAP; BG VENT RATE 16 set
[2019-01-22] MEDS ORDERED: KETOROLAC 15MG/ML VIAL IV PRN (14:00)
[2019-01-22] MEDS ORDERED: NA PHOS,M-B/NA PHOS,DI-BA ENEMA 118ML PR PRN (14:00)
[2019-01-22] MEDS ORDERED: GUAIFENESIN 200MG/10ML SUGAR FREE UDC PO PRN (14:00)
[2019-01-22] MEDS ORDERED: IPRATROPIUM/ALBUTEROL 0.5-3(2.5)MG/3ML NEB NEB PRN (14:00)
[2019-01-22] MEDS ORDERED: CLONIDINE 0.1MG TABLET PO PRN (14:00)
[2019-01-22] MEDS ORDERED: ONDANSETRON HCL 4MG/2ML INJ IV PRN (14:00)
[2019-01-22] MEDS ORDERED: CEFTRIAXONE 1 G PREMIX 50 ML IV SCH (14:00)
[2019-01-22] MEDS ORDERED: AZITHROMYCIN 500 MG in DEXT 5% WATER 250 ML IV SCH (14:00)
[2019-01-22] MEDS ORDERED: DOCUSATE SODIUM 100MG CAPSULE PO PRN (14:00)
[2019-01-22] MEDS: ATORVASTATIN CALCIUM 40MG TABLET PO SCH (15:55)
[2019-01-22] MEDS: PREDNISONE 20MG TABLET PO SCH (15:55)
[2019-01-22] MEDS: IPRATROPIUM/ALBUTEROL 0.5-3(2.5)MG/3ML NEB NEB SCH ×2 (16:03→20:18)
[2019-01-22] MEDS: AZITHROMYCIN 500 MG in DEXT 5% WATER 250 ML IV SCH (16:34)
[2019-01-22] MEDS: CEFTRIAXONE 1,000 MG in DEXTROSE 5% WATER 50 ML IV SCH (16:34)
[2019-01-22] MEDS: ENOXAPARIN 40MG/0.4ML SYR SUBCUT SCH (16:35)
[2019-01-22] MEDS: MEGESTROL ACETATE 40MG TABLET PO SCH (16:44)
[2019-01-22] MEDS: CARISOPRODOL 350 MG TABLET PO PRN (16:56)
[2019-01-22] MEDS: LORAZEPAM 2MG/ML CPJ IV PRN (20:02)
[2019-01-22] MEDS: FAMOTIDINE 20MG TABLET PO SCH (20:02)
[2019-01-22] MEDS: HYDROCODONE/ACETAMINOPHEN 10/325MG TABLET PO PRN (20:25)
[2019-01-23] VITALS (9 sets, daily range): BP systolic 111–143; BP diastolic 60–75
[2019-01-23] MEDS: IPRATROPIUM/ALBUTEROL 0.5-3(2.5)MG/3ML NEB NEB SCH ×4 (00:39→20:08)
[2019-01-23] MEDS: CARISOPRODOL 350 MG TABLET PO PRN ×3 (01:17→20:14)
[2019-01-23] MEDS: HYDROCODONE/ACETAMINOPHEN 10/325MG TABLET PO PRN ×3 (02:03→17:01)
[2019-01-23] MEDS ORDERED: DEXTROSE 50% WATER 50ML SYRINGE IV PRN (07:15)
[2019-01-23] MEDS: BLOOD SUGAR DIAGNOSTIC STRIP TEST SCH ×4 (07:35→21:47)
[2019-01-23 07:42] LABS: BASOPHILS % 0.2 % (0.0-2.0); HEMATOCRIT. 38.6 % (42.0-52.0); HEMOGLOBIN. 12.8 g/dL (14.0-18.0); LYMPHOCYTES % 8.1 % (20.0-50.0); MEAN CORPUSCULAR HEMOGLOBIN 30.2 pg (28.0-32.0); MEAN CORPUSCULAR VOLUME 90.8 fL (80.0-94.0); MEAN PLATELET VOLUME 7.7 fl (7.4-10.4); NEUTROPHILS % 82.7 % (40.0-76.0); PLATELET 205 x1000/uL (130-400); RED BLOOD CELL COUNT 4.25 mill/uL (4.7-6.1); RED CELL DISTRIBUTION WIDTH 14.3 % (11.6-14.6)
[2019-01-23 07:49] LABS: CHLORIDE 104 mEq/L (98-107)
[2019-01-23] MEDS: MEGESTROL ACETATE 40MG TABLET PO SCH ×2 (08:14→16:11)
[2019-01-23] MEDS: FAMOTIDINE 20MG TABLET PO SCH ×2 (08:15→21:52)
[2019-01-23] MEDS: AMLODIPINE 10MG TABLET PO SCH (08:15)
[2019-01-23] MEDS: ATORVASTATIN CALCIUM 40MG TABLET PO SCH (08:16)
[2019-01-23] MEDS: PREDNISONE 20MG TABLET PO SCH (08:16)
[2019-01-23 08:24] LABS: BG BASE EXCESS -3.1 mmol/L (-2.0-2.0); BG CARBOXYHEMOGLOBIN 0.8 % (0.5-1.5); BG DEOXYHEMOGLOBIN 3.4 % (0.0-5.0); BG FRACTION INSPIRED OXYGEN 21; BG HCO3 ACT 19.9 mmol/L (22.0-26.0); BG METHEMOGLOBIN 0.5 % (0.0-1.5); BG OXYGEN SATURATION 96.6 % (92.0-98.5); BG OXYHEMOGLOBIN 95.3 % (94.0-97.0); BG PCO2 29.7 mmHg (35.0-45.0); BG PH 7.443 (7.350-7.450); BG PO2 91.8 mmHg (75.0-100.0); BG SAMPLE SITE RIGHT RADIAL; BG TOTAL HEMOGLOBIN 13.3 g/dL (12.0-18.0); BG VENT MODE ROOM AIR
[2019-01-23] MEDS: INSULIN LISPRO 100 UNITS/ML SUBCUT SCH ×4 (08:24→21:53)
[2019-01-23] MEDS: CEFTRIAXONE 1,000 MG in DEXTROSE 5% WATER 50 ML IV SCH (15:15)
[2019-01-23] MEDS: ENOXAPARIN 40MG/0.4ML SYR SUBCUT SCH (15:16)
[2019-01-23] MEDS: AZITHROMYCIN 500 MG in DEXT 5% WATER 250 ML IV SCH (16:06)
[2019-01-23] MEDS: LORAZEPAM 2MG/ML CPJ IV PRN (22:05)
[2019-01-24] VITALS: BP 114/76
[2019-01-24] MEDS: HYDROCODONE/ACETAMINOPHEN 10/325MG TABLET PO PRN ×2 (02:13→06:21)
[2019-01-24] MEDS: IPRATROPIUM/ALBUTEROL 0.5-3(2.5)MG/3ML NEB NEB SCH ×3 (02:29→14:30)
[2019-01-24 04:00] VITALS: BP 96/49
[2019-01-24] MEDS: CARISOPRODOL 350 MG TABLET PO PRN (04:27)
[2019-01-24 08:00] VITALS: BP 132/84
[2019-01-24] MEDS: INSULIN LISPRO 100 UNITS/ML SUBCUT SCH ×2 (08:00→13:21)
[2019-01-24] MEDS: BLOOD SUGAR DIAGNOSTIC STRIP TEST SCH ×2 (08:01→13:00)
[2019-01-24] MEDS: PREDNISONE 20MG TABLET PO SCH (08:39)
[2019-01-24] MEDS: FAMOTIDINE 20MG TABLET PO SCH (08:39)
[2019-01-24] MEDS: ATORVASTATIN CALCIUM 40MG TABLET PO SCH (08:39)
[2019-01-24] MEDS: MEGESTROL ACETATE 40MG TABLET PO SCH (08:40)
[2019-01-24] MEDS: AMLODIPINE 10MG TABLET PO SCH (08:42)
[2019-01-24 11:30] VITALS: BP 112/83
[2019-01-24 14:08] VITALS: BP 130/89
== END 2019-01-24 15:30 | disposition home or self-care (01) | DRG 189 ==
LOC: ER 04:41 → EDBEDREQ 07:13 → 5EST 08:25 → EDBEDREQ 08:28 → ENRESERV 08:55
PROVIDERS: ADMIT Hospitalist; ATTEND Hospitalist
PROC: 5A09357 Assistance with Respiratory Ventilation, Less than 24 Consecutive Hours, Continuous Positive Airway Pressure (ICD-10-PCS; principal; 2019-01-22)
DX: J96.21 Acute and chronic respiratory failure with hypoxia (principal); J44.1 Chronic obstructive pulmonary disease with (acute) exacerbation; J45.901 Unspecified asthma with (acute) exacerbation; E44.0 Moderate protein-calorie malnutrition; Z68.1 Body mass index [BMI] 19.9 or less, adult; I10 Essential (primary) hypertension; M19.90 Unspecified osteoarthritis, unspecified site; G89.4 Chronic pain syndrome; E78.5 Hyperlipidemia, unspecified; B19.20 Unspecified viral hepatitis C without hepatic coma; D64.9 Anemia, unspecified; Z96.659 Presence of unspecified artificial knee joint; E11.9 Type 2 diabetes mellitus without complications; F17.210 Nicotine dependence, cigarettes, uncomplicated; N40.0 Benign prostatic hyperplasia without lower urinary tract symptoms; Z80.9 Family history of malignant neoplasm, unspecified; Z83.3 Family history of diabetes mellitus; Z87.01 Personal history of pneumonia (recurrent); Z79.899 Other long term (current) drug therapy
CPT/HCPCS: 36415; 36600; 71045; 81003; 82375; 82805; 82962; 83605; 83880; 84145; 84484; 86850; 86900; 93005; 93970; 94640; 94644; 94660; 99285; J0456; J0696; J1650; J1815; J1885; J2060; J2543; J2930; J3370; J7030; J7060; J7512; J7611; J7620

== ENCOUNTER 2019-02-01 05:57 | Emergency (ER) | payer MEDICARE, MEDICAID, OTHER ==
[~2019-02-01] VITALS: Ht 185.4 cm; Wt 82.0 kg
[2019-02-01] MEDS ORDERED: ALBUTEROL (0.083%) 2.5MG/3ML NEB HHN STA (06:39)
[2019-02-01] MEDS ORDERED: METHYLPREDNISOLONE SOD SUCC 125 MG/2 ML VIAL IV STA (06:39)
[2019-02-01] MEDS ORDERED: IPRATROPIUM BROMIDE (0.02%) 0.5MG/2.5ML NEB HHN STA (06:39)
[2019-02-01 07:16] LABS: BASOPHILS % 0.9 % (0.0-2.0); EOSINOPHILS % 13.7 % (0.0-5.0); HEMATOCRIT. 41.5 % (42.0-52.0); LYMPHOCYTES % 33.4 % (20.0-50.0); MEAN CORPUSCULAR HEMOGLOBIN 31.2 pg (28.0-32.0); MEAN CORPUSCULAR VOLUME 92.5 fL (80.0-94.0); MEAN PLATELET VOLUME 7.6 fl (7.4-10.4); PLATELET 236 x1000/uL (130-400); RED BLOOD CELL COUNT 4.49 mill/uL (4.7-6.1); RED CELL DISTRIBUTION WIDTH 14.4 % (11.6-14.6)
[2019-02-01 07:21] LABS: CHLORIDE 109 mEq/L (98-107)
[2019-02-01 10:11] VITALS: BP 126/86
[2019-02-09] MEDS ORDERED: TRAM50TA3 MT (12:27)
[2019-02-09] MEDS ORDERED: P50 PO (12:27)
[2019-02-09] MEDS ORDERED: ZOLP10TA2 PO (12:27)
== END 2019-02-01 10:26 | disposition home or self-care (01) ==
LOC: ER 05:57
DX: J45.901 Unspecified asthma with (acute) exacerbation (principal); E11.9 Type 2 diabetes mellitus without complications; Z98.890 Other specified postprocedural states; Z79.899 Other long term (current) drug therapy
CPT/HCPCS: 36415; 71045; 80053; 83880; 84484; 85025; 93005; 94644; 96374; 99285; J2930; J7611; 94640

== ENCOUNTER 2019-02-07 21:02 | Inpatient (IN) | payer MEDICARE, MEDICAID, OTHER ==
[~2019-02-07] VITALS: Ht 186.1 cm; Wt 63.6 kg
[2019-02-07] MEDS ORDERED: ALBUTEROL (0.083%) 2.5MG/3ML NEB HHN STA (21:20)
[2019-02-07] MEDS ORDERED: IPRATROPIUM BROMIDE (0.02%) 0.5MG/2.5ML NEB HHN STA (21:20)
[2019-02-07 21:45] LABS: BASOPHILS % 0.7 % (0.0-2.0); EOSINOPHILS % 13.9 % (0.0-5.0); HEMATOCRIT. 39.6 % (42.0-52.0); HEMOGLOBIN. 13.6 g/dL (14.0-18.0); LYMPHOCYTES % 27.3 % (20.0-50.0); MEAN CORPUSCULAR HEMOGLOBIN 31.3 pg (28.0-32.0); MEAN CORPUSCULAR VOLUME 91.5 fL (80.0-94.0); MEAN PLATELET VOLUME 7.1 fl (7.4-10.4); MONOCYTES % 10.4 % (2.0-8.0); NEUTROPHILS % 47.7 % (40.0-76.0); PLATELET 240 x1000/uL (130-400); RED BLOOD CELL COUNT 4.33 mill/uL (4.7-6.1); RED CELL DISTRIBUTION WIDTH 14.4 % (11.6-14.6)
[2019-02-07 21:51] LABS: CHLORIDE 109 mEq/L (98-107)
[2019-02-07] MEDS ORDERED: ALBUTEROL (0.5%) 2.5MG/0.5ML NEB HHN ONE (23:30)
[2019-02-07] MEDS ORDERED: SODIUM CHLORIDE 0.9% 500 ML IV ONE (23:30)
[2019-02-08] MEDS ORDERED: IPRATROPIUM/ALBUTEROL 0.5-3(2.5)MG/3ML NEB NEB PRN (03:15)
[2019-02-08] MEDS ORDERED: NA PHOS,M-B/NA PHOS,DI-BA ENEMA 118ML PR PRN (03:15)
[2019-02-08] MEDS ORDERED: ACETAMINOPHEN 325MG TABLET PO PRN (03:15)
[2019-02-08] MEDS ORDERED: CLONIDINE 0.1MG TABLET PO PRN (03:15)
[2019-02-08] MEDS ORDERED: MORPHINE SULFATE 2 MG/ML CPJ (NOT FOR IM USE) IV PRN (03:15)
[2019-02-08] MEDS ORDERED: MAGNESIUM/ALUMINUM HYDROXIDE/SIMETHICONE 30ML UDC PO PRN (03:15)
[2019-02-08] MEDS ORDERED: DOCUSATE SODIUM 100MG CAPSULE PO PRN (03:15)
[2019-02-08] MEDS ORDERED: ONDANSETRON HCL 4MG/2ML INJ IV PRN (03:15)
[2019-02-08 03:30] VITALS: BP_SYST 134; BP_SYST 137; BP_DIAS 100; BP_DIAS 80
[2019-02-08 04:00] VITALS: BP 133/77
[2019-02-08] MEDS: LEVOFLOXACIN 500MG PREMIX 100 ML IV SCH (04:07)
[2019-02-08] MEDS: METHYLPREDNISOLONE SOD SUCC 125 MG/2 ML VIAL IV SCH ×2 (06:44→12:47)
[2019-02-08] MEDS: IPRATROPIUM/ALBUTEROL 0.5-3(2.5)MG/3ML NEB NEB SCH ×3 (07:25→20:38)
[2019-02-08] MEDS ORDERED: DEXTROSE 50% WATER 50ML SYRINGE IV PRN (07:30)
[2019-02-08] MEDS: BLOOD SUGAR DIAGNOSTIC STRIP TEST SCH ×4 (07:37→21:11)
[2019-02-08] MEDS: INSULIN LISPRO 100 UNITS/ML SUBCUT SCH ×4 (07:50→21:13)
[2019-02-08 08:00] VITALS: BP 128/81
[2019-02-08] MEDS: HYDROCODONE/ACETAMINOPHEN 5/325MG TABLET PO PRN ×3 (08:49→17:29)
[2019-02-08] MEDS: ASPIRIN 81MG EC TABLET PO SCH (10:09)
[2019-02-08] MEDS: AMLODIPINE 10MG TABLET PO SCH (10:09)
[2019-02-08] MEDS: ENOXAPARIN 40MG/0.4ML SYR SUBCUT SCH (10:10)
[2019-02-08 12:00] VITALS: BP 130/75
[2019-02-08] MEDS: METFORMIN HCL 500MG TABLET PO SCH ×2 (12:47→17:27)
[2019-02-08] MEDS: FAMOTIDINE 20MG/2ML VIAL IV SCH ×2 (12:47→21:11)
[2019-02-08 16:00] VITALS: BP 128/70
[2019-02-08 16:53] LABS: CLARITY URINE CLEAR (CLEAR); COLOR URINE YELLOW (YELLOW); KETONES URINE 1+ (NEGATIVE); LEUKOCYTE ESTERASE URINE NEGATIVE (NEGATIVE); NITRITE URINE NEGATIVE (NEGATIVE); OCCULT BLOOD URINE NEGATIVE (NEGATIVE); PH URINE 6.5 (4.5-8.0); PROTEIN URINE NEGATIVE (NEGATIVE); SPECIFIC GRAVITY URINE 1.017 (1.005-1.030)
[2019-02-08 17:11] LABS: *AMPHETAMINES SCREEN URINE NEGATIVE (NEGATIVE); *BARBITURATES SCREEN URINE NEGATIVE (NEGATIVE); *BENZODIAZEPINES SCREEN URINE NEGATIVE (NEGATIVE); *COCAINE SCREEN URINE NEGATIVE (NEGATIVE); METHADONE URINE SCREEN NEGATIVE (NEGATIVE); OPIATES URINE SCREEN PRESUMTIVE POSITIVE (NEGATIVE)
[2019-02-08 17:12] LABS: CANNABINOID URINE SCREEN NEGATIVE (NEGATIVE); PHENCYCLIDINE URINE SCREEN NEGATIVE (NEGATIVE)
[2019-02-08] MEDS: METHYLPREDNISOLONE SOD SUCC 40 MG/ML VIAL IV SCH (17:26)
[2019-02-08] MEDS: MEGESTROL ACETATE 40MG TABLET PO SCH (17:28)
[2019-02-08] MEDS: GUAIFENESIN 200MG/10ML SUGAR FREE UDC PO PRN (17:38)
[2019-02-08 20:00] VITALS: BP 131/79
[2019-02-08] MEDS ORDERED: ATORVASTATIN CALCIUM 40MG TABLET PO SCH (21:00)
[2019-02-08] MEDS ORDERED: ZOLPIDEM TARTRATE 5MG TABLET PO PRN (21:45)
[2019-02-09] VITALS: BP 118/61
[2019-02-09] MEDS: METHYLPREDNISOLONE SOD SUCC 40 MG/ML VIAL IV SCH ×2 (00:04→08:32)
[2019-02-09] MEDS: IPRATROPIUM/ALBUTEROL 0.5-3(2.5)MG/3ML NEB NEB SCH ×2 (00:41→08:20)
[2019-02-09 03:34] VITALS: BP 132/80
[2019-02-09] MEDS: HYDROCODONE/ACETAMINOPHEN 5/325MG TABLET PO PRN (03:36)
[2019-02-09] MEDS: LEVOFLOXACIN 500MG PREMIX 100 ML IV SCH (03:36)
[2019-02-09] MEDS: BLOOD SUGAR DIAGNOSTIC STRIP TEST SCH ×2 (06:38→12:20)
[2019-02-09 07:41] LABS: BASOPHILS % 0.1 % (0.0-2.0); CHLORIDE 104 mEq/L (98-107); HEMATOCRIT. 39.4 % (42.0-52.0); HEMOGLOBIN. 13.3 g/dL (14.0-18.0); LYMPHOCYTES % 7.5 % (20.0-50.0); MEAN PLATELET VOLUME 7.7 fl (7.4-10.4); MONOCYTES % 5.6 % (2.0-8.0); NEUTROPHILS % 86.8 % (40.0-76.0); PLATELET 239 x1000/uL (130-400); RED BLOOD CELL COUNT 4.28 mill/uL (4.7-6.1); RED CELL DISTRIBUTION WIDTH 14.5 % (11.6-14.6)
[2019-02-09 08:00] VITALS: BP 126/77
[2019-02-09] MEDS: MEGESTROL ACETATE 40MG TABLET PO SCH (08:31)
[2019-02-09] MEDS: AMLODIPINE 10MG TABLET PO SCH (08:32)
[2019-02-09] MEDS: METFORMIN HCL 500MG TABLET PO SCH ×2 (08:32→12:50)
[2019-02-09] MEDS: ASPIRIN 81MG EC TABLET PO SCH (08:32)
[2019-02-09] MEDS: FAMOTIDINE 20MG/2ML VIAL IV SCH (08:32)
[2019-02-09] MEDS: ENOXAPARIN 40MG/0.4ML SYR SUBCUT SCH (08:33)
[2019-02-09] MEDS: INSULIN LISPRO 100 UNITS/ML SUBCUT SCH ×2 (08:43→12:50)
[2019-02-09] MEDS: GUAIFENESIN 200MG/10ML SUGAR FREE UDC PO PRN (10:36)
[2019-02-09 10:38] LABS: BG CARBOXYHEMOGLOBIN 0.6 % (0.5-1.5); BG DEOXYHEMOGLOBIN 2.9 % (0.0-5.0); BG FRACTION INSPIRED OXYGEN 21; BG METHEMOGLOBIN 0.2 % (0.0-1.5); BG OXYGEN SATURATION 97.1 % (92.0-98.5); BG OXYHEMOGLOBIN 96.3 % (94.0-97.0); BG PCO2 31.8 mmHg (35.0-45.0); BG PH 7.457 (7.350-7.450); BG PO2 83.6 mmHg (75.0-100.0); BG SAMPLE SITE RIGHT RADIAL; BG TOTAL HEMOGLOBIN 14.5 g/dL (12.0-18.0); BG VENT MODE ROOM AIR
[2019-02-09 12:00] VITALS: BP 141/82
[2019-02-09] MEDS ORDERED: TRAM50TA3 MT (12:27)
[2019-02-09] MEDS ORDERED: ZOLP10TA2 PO (12:27)
[2019-02-09] MEDS ORDERED: P50 PO (12:27)
[2019-02-09 12:40] VITALS: BP 141/82
== END 2019-02-09 13:53 | disposition home or self-care (01) | DRG 189 ==
LOC: ER 21:02 → 6WST 02-08 00:16 → ENRESERV 02-08 01:26
PROVIDERS: ADMIT Hospitalist; ATTEND Hospitalist
PROC: 5A09357 Assistance with Respiratory Ventilation, Less than 24 Consecutive Hours, Continuous Positive Airway Pressure (ICD-10-PCS; principal; 2019-02-08)
DX: J96.00 Acute respiratory failure, unspecified whether with hypoxia or hypercapnia (principal); J44.1 Chronic obstructive pulmonary disease with (acute) exacerbation; B19.20 Unspecified viral hepatitis C without hepatic coma; E11.9 Type 2 diabetes mellitus without complications; E78.5 Hyperlipidemia, unspecified; I10 Essential (primary) hypertension; N40.0 Benign prostatic hyperplasia without lower urinary tract symptoms; M19.90 Unspecified osteoarthritis, unspecified site; Z87.891 Personal history of nicotine dependence
CPT/HCPCS: 36415; 36600; 71045; 80305; 81003; 82375; 82805; 82962; 83880; 84484; 93005; 93970; 94640; 96360; 99291; J1650; J1815; J1956; J2920; J2930; J3490; J7611; J7620

== ENCOUNTER 2019-03-01 16:33 | Inpatient (IN) | payer MEDICARE, MEDICAID, OTHER ==
[~2019-03-01] VITALS: Ht 185.4 cm; Wt 62.1 kg
[~2019-03-01 16:33] MED LIST changes: -HYDR-4009 PO; +TRAM50TA3 MT
[2019-03-01] MEDS ORDERED: ONDANSETRON HCL 4MG/2ML INJ IV STA (16:36)
[2019-03-01] MEDS ORDERED: IPRATROPIUM BROMIDE (0.02%) 0.5MG/2.5ML NEB HHN STA (16:36)
[2019-03-01] MEDS ORDERED: ALBUTEROL (0.083%) 2.5MG/3ML NEB HHN STA (16:36)
[2019-03-01] MEDS ORDERED: METHYLPREDNISOLONE SOD SUCC 125 MG/2 ML VIAL IV ONE (16:45)
[2019-03-01 16:54] LABS: BG BASE EXCESS -1.1 mmol/L (-2.0-2.0); BG BILEVEL POS AIRWAY PRESSURE 15/5; BG CARBOXYHEMOGLOBIN 0.7 % (0.5-1.5); BG DEOXYHEMOGLOBIN 0.2 % (0.0-5.0); BG FRACTION INSPIRED OXYGEN 60; BG HCO3 ACT 22.6 mmol/L (22.0-26.0); BG METHEMOGLOBIN 0.4 % (0.0-1.5); BG OXYGEN SATURATION 99.8 % (92.0-98.5); BG OXYHEMOGLOBIN 98.7 % (94.0-97.0); BG PCO2 34.9 mmHg (35.0-45.0); BG PO2 441.9 mmHg (75.0-100.0); BG SAMPLE SITE RIGHT RADIAL; BG VENT MODE MASK - BIPAP; BG VENT RATE 16 set
[2019-03-01 17:08] LABS: CHLORIDE 107 mEq/L (98-107); EOSINOPHILS % 9.4 % (0.0-5.0); HEMATOCRIT. 40.7 % (42.0-52.0); HEMOGLOBIN. 13.7 g/dL (14.0-18.0); LYMPHOCYTES % 25.6 % (20.0-50.0); MEAN CORPUSCULAR HEMOGLOBIN 31.1 pg (28.0-32.0); MEAN CORPUSCULAR VOLUME 92.1 fL (80.0-94.0); MEAN PLATELET VOLUME 7.3 fl (7.4-10.4); MONOCYTES % 8.7 % (2.0-8.0); NEUTROPHILS % 55.3 % (40.0-76.0); PLATELET 319 x1000/uL (130-400); RED BLOOD CELL COUNT 4.42 mill/uL (4.7-6.1); RED CELL DISTRIBUTION WIDTH 15.1 % (11.6-14.6)
[2019-03-01] MEDS ORDERED: ALBUTEROL (0.5%) 2.5MG/0.5ML NEB HHN ONE (18:30)
[2019-03-01] MEDS ORDERED: LEVOFLOXACIN 500MG PREMIX 100 ML IV SCH (20:00)
[2019-03-01] MEDS ORDERED: DOCUSATE SODIUM 100MG CAPSULE PO PRN (20:00)
[2019-03-01] MEDS ORDERED: LORAZEPAM 2MG/ML CPJ IV PRN (20:00)
[2019-03-01] MEDS ORDERED: MAGNESIUM/ALUMINUM HYDROXIDE/SIMETHICONE 30ML UDC PO PRN (20:00)
[2019-03-01] MEDS ORDERED: CLONIDINE 0.1MG TABLET PO PRN (20:00)
[2019-03-01] MEDS ORDERED: ACETAMINOPHEN 325MG TABLET PO PRN (20:00)
[2019-03-01] MEDS ORDERED: IPRATROPIUM/ALBUTEROL 0.5-3(2.5)MG/3ML NEB NEB PRN (20:00)
[2019-03-01] MEDS ORDERED: ONDANSETRON HCL 4MG/2ML INJ IV PRN (20:00)
[2019-03-01] MEDS ORDERED: MORPHINE SULFATE 2 MG/ML CPJ (NOT FOR IM USE) IV PRN (21:00)
[2019-03-02] VITALS (7 sets, daily range): BP systolic 116–152; BP diastolic 60–71
[2019-03-02] MEDS ORDERED: METHYLPREDNISOLONE SOD SUCC 125 MG/2 ML VIAL IV NR (03:15)
[2019-03-02 05:25] LABS: HEMATOCRIT. 39.6 % (42.0-52.0); HEMOGLOBIN. 13.6 g/dL (14.0-18.0); MEAN CORPUSCULAR HEMOGLOBIN 31.1 pg (28.0-32.0); MEAN CORPUSCULAR VOLUME 91.1 fL (80.0-94.0); MEAN PLATELET VOLUME 6.8 fl (7.4-10.4); PLATELET 330 x1000/uL (130-400); RED BLOOD CELL COUNT 4.35 mill/uL (4.7-6.1); RED CELL DISTRIBUTION WIDTH 15.1 % (11.6-14.6)
[2019-03-02 05:29] LABS: CHLORIDE 105 mEq/L (98-107)
[2019-03-02 07:01] LABS: PLATELET ESTIMATE NORMAL
[2019-03-02] MEDS ORDERED: METHYLPREDNISOLONE SOD SUCC 125 MG/2 ML VIAL IV SCH (09:00)
[2019-03-02] MEDS: ENOXAPARIN 40MG/0.4ML SYR SUBCUT SCH (09:30)
[2019-03-02] MEDS: AMLODIPINE 10MG TABLET PO SCH (09:34)
[2019-03-02] MEDS: ASPIRIN 81MG EC TABLET PO SCH (09:35)
[2019-03-02] MEDS: LEVOFLOXACIN 500MG PREMIX 100 ML IV SCH (10:59)
[2019-03-02 11:07] LABS: BG BASE EXCESS -1.4 mmol/L (-2.0-2.0); BG CARBOXYHEMOGLOBIN 0.7 % (0.5-1.5); BG FRACTION INSPIRED OXYGEN 28; BG HCO3 ACT 22.4 mmol/L (22.0-26.0); BG METHEMOGLOBIN 0.4 % (0.0-1.5); BG OXYHEMOGLOBIN 96.9 % (94.0-97.0); BG PCO2 34.8 mmHg (35.0-45.0); BG PH 7.426 (7.350-7.450); BG PO2 101.1 mmHg (75.0-100.0); BG SAMPLE SITE RIGHT RADIAL; BG TOTAL HEMOGLOBIN 14.1 g/dL (12.0-18.0); BG VENT MODE NASAL CANNULA
[2019-03-02] MEDS: HYDROCODONE/ACETAMINOPHEN 5/325MG TABLET PO PRN ×2 (11:50→18:04)
[2019-03-02] MEDS ORDERED: IPRATROPIUM/ALBUTEROL 0.5-3(2.5)MG/3ML NEB NEB SCH (12:00)
[2019-03-02] MEDS: LORATADINE 10MG TABLET PO SCH (17:30)
[2019-03-02] MEDS: MONTELUKAST SODIUM 10MG TABLET PO SCH (17:30)
[2019-03-02] MEDS: ZOLPIDEM TARTRATE 5MG TABLET PO PRN (20:22)
[2019-03-02] MEDS: FAMOTIDINE 20MG TABLET PO SCH (20:23)
[2019-03-02] MEDS: BUDESONIDE 0.5MG/2ML NEB HHN SCH (21:15)
[2019-03-02] MEDS: IPRATROPIUM/ALBUTEROL 0.5-3(2.5)MG/3ML NEB NEB SCH (21:15)
[2019-03-02] MEDS: METHYLPREDNISOLONE SOD SUCC 40 MG/ML VIAL IV SCH (22:15)
[2019-03-03] VITALS (12 sets, daily range): BP systolic 98–134; BP diastolic 48–91
[2019-03-03 00:15] LABS: *AMPHETAMINES SCREEN URINE NEGATIVE (NEGATIVE); *BARBITURATES SCREEN URINE NEGATIVE (NEGATIVE); *BENZODIAZEPINES SCREEN URINE PRESUMTIVE POSITIVE (NEGATIVE); *COCAINE SCREEN URINE NEGATIVE (NEGATIVE); METHADONE URINE SCREEN NEGATIVE (NEGATIVE); OPIATES URINE SCREEN PRESUMTIVE POSITIVE (NEGATIVE)
[2019-03-03 00:16] LABS: CANNABINOID URINE SCREEN NEGATIVE (NEGATIVE); PHENCYCLIDINE URINE SCREEN NEGATIVE (NEGATIVE)
[2019-03-03] MEDS: IPRATROPIUM/ALBUTEROL 0.5-3(2.5)MG/3ML NEB NEB SCH ×5 (00:26→20:58)
[2019-03-03] MEDS: HYDROCODONE/ACETAMINOPHEN 5/325MG TABLET PO PRN ×5 (01:07→20:51)
[2019-03-03] MEDS: METHYLPREDNISOLONE SOD SUCC 40 MG/ML VIAL IV SCH ×3 (05:55→20:53)
[2019-03-03] MEDS: AMLODIPINE 10MG TABLET PO SCH (09:00)
[2019-03-03] MEDS: LORATADINE 10MG TABLET PO SCH (09:08)
[2019-03-03] MEDS: ASPIRIN 81MG EC TABLET PO SCH (09:08)
[2019-03-03] MEDS: FAMOTIDINE 20MG TABLET PO SCH ×2 (09:08→20:48)
[2019-03-03] MEDS: ENOXAPARIN 40MG/0.4ML SYR SUBCUT SCH (09:09)
[2019-03-03] MEDS: LEVOFLOXACIN 500MG PREMIX 100 ML IV SCH (10:25)
[2019-03-03] MEDS: MONTELUKAST SODIUM 10MG TABLET PO SCH (16:48)
[2019-03-03] MEDS: ZOLPIDEM TARTRATE 5MG TABLET PO PRN (20:49)
[2019-03-04] VITALS (7 sets, daily range): BP systolic 97–135; BP diastolic 36–79
[2019-03-04] MEDS: HYDROCODONE/ACETAMINOPHEN 5/325MG TABLET PO PRN ×3 (01:34→09:31)
[2019-03-04] MEDS: IPRATROPIUM/ALBUTEROL 0.5-3(2.5)MG/3ML NEB NEB SCH ×3 (01:40→08:30)
[2019-03-04] MEDS: METHYLPREDNISOLONE SOD SUCC 40 MG/ML VIAL IV SCH (05:33)
[2019-03-04] MEDS: BUDESONIDE 0.5MG/2ML NEB HHN SCH (08:30)
[2019-03-04] MEDS: ASPIRIN 81MG EC TABLET PO SCH (09:00)
[2019-03-04] MEDS: ENOXAPARIN 40MG/0.4ML SYR SUBCUT SCH (09:00)
[2019-03-04] MEDS: FAMOTIDINE 20MG TABLET PO SCH (09:30)
[2019-03-04] MEDS: AMLODIPINE 10MG TABLET PO SCH (09:32)
[2019-03-04] MEDS: LORATADINE 10MG TABLET PO SCH (09:40)
[2019-03-04] MEDS: LEVOFLOXACIN 500MG PREMIX 100 ML IV SCH (09:40)
== END 2019-03-04 16:03 | disposition home health service (06) | DRG 189 ==
LOC: ER 16:36 → EDBEDREQTM 18:33 → EDBEDREQ 18:33 → CANRESERV 21:26 → ENRESERV 21:26 → 5EST 21:40 → EDBEDREQTM 21:41 → EDBEDREQ 21:41 → EDBEDREQSVC 21:41 → CANBEDREQ 22:18 → ENRESERV 03-02 07:09
PROVIDERS: ADMIT Hospitalist; ATTEND Hospitalist
PROC: 5A09357 Assistance with Respiratory Ventilation, Less than 24 Consecutive Hours, Continuous Positive Airway Pressure (ICD-10-PCS; principal; 2019-03-01)
PROC: 5A09357 Assistance with Respiratory Ventilation, Less than 24 Consecutive Hours, Continuous Positive Airway Pressure (ICD-10-PCS; 2019-03-02)
DX: J96.01 Acute respiratory failure with hypoxia (principal); J44.1 Chronic obstructive pulmonary disease with (acute) exacerbation; J45.901 Unspecified asthma with (acute) exacerbation; I10 Essential (primary) hypertension; E87.5 Hyperkalemia; B19.20 Unspecified viral hepatitis C without hepatic coma; E11.9 Type 2 diabetes mellitus without complications; N40.0 Benign prostatic hyperplasia without lower urinary tract symptoms; Z79.899 Other long term (current) drug therapy
CPT/HCPCS: 36415; 36600; 71045; 80305; 82375; 82805; 82962; 83880; 84484; 93005; 93970; 94640; 94660; 99291; J1650; J1956; J2270; J2405; J2920; J2930; J7611; J7620; J7626

== ENCOUNTER 2019-04-29 05:52 | Inpatient (IN) | payer MEDICARE, MEDICAID, OTHER ==
[~2019-04-29] VITALS: Ht 182.9 cm; Wt 73.5 kg
[2019-04-29] VITALS (55 sets, daily range): BP systolic 99–155; BP diastolic 36–88
[~2019-04-29 05:52] MED LIST changes: -ALBU6.7H INH; +ALBU6.7H11 INH; -ASPI-1158 PO
[2019-04-29] MEDS ORDERED: ALBUTEROL (0.083%) 2.5MG/3ML NEB HHN STA (06:05)
[2019-04-29] MEDS ORDERED: IPRATROPIUM BROMIDE (0.02%) 0.5MG/2.5ML NEB HHN STA (06:05)
[2019-04-29] MEDS ORDERED: METHYLPREDNISOLONE SOD SUCC 125 MG/2 ML VIAL IV STA (06:05)
[2019-04-29] MEDS: MAGNESIUM 2 G PREMIX 50 ML IV STA ×2 (06:24→06:46)
[2019-04-29] MEDS ORDERED: DILTIAZEM HCL 5MG/ML 5ML VIAL IV ONE (06:30)
[2019-04-29] MEDS ORDERED: MIDAZOLAM HCL 2 MG/2 ML VIAL ONE (06:39)
[2019-04-29] MEDS ORDERED: SUCCINYLCHOLINE CHLORIDE 200MG/10ML IV ONE ×2 (06:54→07:15)
[2019-04-29] MEDS ORDERED: ADENOSINE 3 MG/ML 2ML VIAL IV ONE (06:54)
[2019-04-29] MEDS ORDERED: ETOMIDATE 2MG/ML 10ML VIAL IV ONE ×2 (06:54→07:15)
[2019-04-29] MEDS ORDERED: SODIUM BICARBONATE 8.4% MEQ/ML 50ML VIAL IV ONE (06:54)
[2019-04-29 06:55] LABS: BASOPHILS % 0.2 % (0.0-2.0); EOSINOPHILS % 2.3 % (0.0-5.0); HEMATOCRIT. 45.9 % (42.0-52.0); HEMOGLOBIN. 15.4 g/dL (14.0-18.0); LYMPHOCYTES % 11.5 % (20.0-50.0); MEAN CORPUSCULAR HEMOGLOBIN 30.9 pg (28.0-32.0); MEAN CORPUSCULAR VOLUME 91.9 fL (80.0-94.0); MEAN PLATELET VOLUME 7.9 fl (7.4-10.4); MONOCYTES % 1.5 % (2.0-8.0); NEUTROPHILS % 84.5 % (40.0-76.0); PLATELET 236 x1000/uL (130-400); RED CELL DISTRIBUTION WIDTH 14.5 % (11.6-14.6)
[2019-04-29] MEDS ORDERED: LORAZEPAM 2MG/ML CPJ ONE (07:01)
[2019-04-29 07:06] LABS: CHLORIDE 105 mEq/L (98-107)
[2019-04-29] MEDS ORDERED: MIDAZOLAM HCL 50 MG in DEXTROSE 5% WATER 40 ML IV ONE ×2 (07:15→07:30)
[2019-04-29] MEDS ORDERED: LEVOFLOXACIN 500MG PREMIX 100 ML IV ONE (07:15)
[2019-04-29] MEDS ORDERED: PIPERACILLIN/TAZ 3.375G PREMIX 50 ML IV ONE (07:15)
[2019-04-29] MEDS ORDERED: LORAZEPAM 2MG/ML CPJ IV ONE (07:15)
[2019-04-29 07:26] LABS: PROTHROMBIN TIME 10.7 sec (9.6-11.0)
[2019-04-29 08:19] LABS: CLARITY URINE CLEAR (CLEAR); COLOR URINE YELLOW (YELLOW); KETONES URINE NEGATIVE (NEGATIVE); LEUKOCYTE ESTERASE URINE NEGATIVE (NEGATIVE); NITRITE URINE NEGATIVE (NEGATIVE); OCCULT BLOOD URINE 2+ (NEGATIVE); PH URINE 6.5 (4.5-8.0); PROTEIN URINE NEGATIVE (NEGATIVE); UROBILINOGEN URINE 0.2 E.U./dL (0.2-1.0)
[2019-04-29] MEDS ORDERED: PROPOFOL 10MG/ML 100ML 100 ML IV PRN (08:30)
[2019-04-29] MEDS ORDERED: IPRATROPIUM/ALBUTEROL 0.5-3(2.5)MG/3ML NEB HHN PRN (08:30)
[2019-04-29 08:40] LABS: *AMPHETAMINES SCREEN URINE NEGATIVE (NEGATIVE); *BARBITURATES SCREEN URINE NEGATIVE (NEGATIVE); *BENZODIAZEPINES SCREEN URINE PRESUMTIVE POSITIVE (NEGATIVE); *COCAINE SCREEN URINE NEGATIVE (NEGATIVE); METHADONE URINE SCREEN NEGATIVE (NEGATIVE)
[2019-04-29 08:41] LABS: CANNABINOID URINE SCREEN NEGATIVE (NEGATIVE); OPIATES URINE SCREEN PRESUMTIVE POSITIVE (NEGATIVE); PHENCYCLIDINE URINE SCREEN NEGATIVE (NEGATIVE)
[2019-04-29 08:44] LABS: BG BASE EXCESS -7.1 mmol/L (-2.0-2.0); BG CARBOXYHEMOGLOBIN 0.7 % (0.5-1.5); BG DEOXYHEMOGLOBIN 0.1 % (0.0-5.0); BG FRACTION INSPIRED OXYGEN 100; BG HCO3 ACT 21.1 mmol/L (22.0-26.0); BG METHEMOGLOBIN 0.1 % (0.0-1.5); BG OXYGEN SATURATION 99.9 % (92.0-98.5); BG OXYHEMOGLOBIN 99.1 % (94.0-97.0); BG PCO2 52.8 mmHg (35.0-45.0); BG PH 7.219 (7.350-7.450); BG SAMPLE SITE RIGHT RADIAL; BG TIDAL VOLUME(mL) 450 mL; BG TOTAL HEMOGLOBIN 15.4 g/dL (12.0-18.0); BG VENT MODE VENT - A/C; BG VENT RATE 12 set
[2019-04-29] MEDS ORDERED: DEXT 5%/0.45% NACL KCL 10MEQ/L 1,000 ML IV SCH (09:07)
[2019-04-29] MEDS ORDERED: ONDANSETRON HCL 4MG/2ML INJ IV PRN (09:15)
[2019-04-29] MEDS ORDERED: IPRATROPIUM/ALBUTEROL 0.5-3(2.5)MG/3ML NEB NEB SCH (09:15)
[2019-04-29] MEDS ORDERED: LEVOFLOXACIN 500MG PREMIX 100 ML IV SCH (09:15)
[2019-04-29] MEDS ORDERED: CLONIDINE 0.1MG TABLET PO PRN (09:15)
[2019-04-29] MEDS ORDERED: IPRATROPIUM/ALBUTEROL 0.5-3(2.5)MG/3ML NEB NEB PRN (09:15)
[2019-04-29] MEDS ORDERED: MORPHINE SULFATE 10 MG/ML CPJ IV ONE (10:30)
[2019-04-29] MEDS: PROPOFOL 10MG/ML 100ML 100 ML IV SCH ×2 (11:14→15:34)
[2019-04-29] MEDS ORDERED: IPRATROPIUM/ALBUTEROL 0.5-3(2.5)MG/3ML NEB HHN SCH (12:00)
[2019-04-29] MEDS: IPRATROPIUM/ALBUTEROL 0.5-3(2.5)MG/3ML NEB HHN PRN (16:04)
[2019-04-29] MEDS: METHYLPREDNISOLONE SOD SUCC 40 MG/ML VIAL IV SCH ×2 (16:31→22:39)
[2019-04-29] MEDS: PANTOPRAZOLE SODIUM 40 MG/VIAL IV SCH (16:32)
[2019-04-29] MEDS: ENOXAPARIN 40MG/0.4ML SYR SUBCUT SCH (16:32)
[2019-04-29] MEDS: IPRATROPIUM BROMIDE (0.02%) 0.5MG/2.5ML NEB HHN SCH ×2 (16:32→20:35)
[2019-04-29] MEDS: DEXT 5%/0.45% NACL KCL 10MEQ/L 1,000 ML IV SCH (16:32)
[2019-04-29] MEDS ORDERED: DEXTROSE 50% WATER 50ML SYRINGE IV PRN (17:30)
[2019-04-29] MEDS: BLOOD SUGAR DIAGNOSTIC STRIP TEST SCH ×2 (18:16→23:41)
[2019-04-29] MEDS: INSULIN LISPRO 100 UNITS/ML SUBCUT SCH ×2 (18:20→23:54)
[2019-04-29 20:17] LABS: CREATINE KINASE 146 IU/L (39-308)
[2019-04-29 20:19] LABS: CREATINE KINASE MB FRACTION 1.5 ng/mL (0.5-3.6)
[2019-04-29] MEDS ORDERED: BLOOD SUGAR DIAGNOSTIC STRIP TEST SCH (21:00)
[2019-04-29] MEDS ORDERED: INSULIN LISPRO 100 UNITS/ML SUBCUT SCH (21:00)
[2019-04-29] MEDS: PROPOFOL 10MG/ML 100ML 100 ML IV PRN (21:04)
[2019-04-29] MEDS: MORPHINE SULFATE 2 MG/ML CPJ (NOT FOR IM USE) IV PRN (23:56)
[2019-04-30] VITALS (96 sets, daily range): BP systolic 73–162; BP diastolic 48–106
[2019-04-30] MEDS: IPRATROPIUM BROMIDE (0.02%) 0.5MG/2.5ML NEB HHN SCH ×7 (00:06→23:46)
[2019-04-30 00:35] LABS: CREATINE KINASE 64 IU/L (39-308)
[2019-04-30 00:37] LABS: CREATINE KINASE MB FRACTION < 1.0 ng/mL (0.5-3.6)
[2019-04-30] MEDS: PROPOFOL 10MG/ML 100ML 100 ML IV PRN ×4 (01:32→22:28)
[2019-04-30] MEDS: METHYLPREDNISOLONE SOD SUCC 40 MG/ML VIAL IV SCH ×3 (05:02→22:38)
[2019-04-30] MEDS: LEVOFLOXACIN 500MG PREMIX 100 ML IV SCH (05:03)
[2019-04-30] MEDS: BLOOD SUGAR DIAGNOSTIC STRIP TEST SCH ×4 (05:11→23:37)
[2019-04-30] MEDS: INSULIN LISPRO 100 UNITS/ML SUBCUT SCH ×4 (05:16→23:40)
[2019-04-30 05:49] LABS: CHLORIDE 103 mEq/L (98-107); HEMATOCRIT. 41.2 % (42.0-52.0); HEMOGLOBIN. 13.9 g/dL (14.0-18.0); MEAN CORPUSCULAR HEMOGLOBIN 30.4 pg (28.0-32.0); MEAN CORPUSCULAR VOLUME 90.2 fL (80.0-94.0); MEAN PLATELET VOLUME 8.5 fl (7.4-10.4); PLATELET 210 x1000/uL (130-400); RED BLOOD CELL COUNT 4.57 mill/uL (4.7-6.1); RED CELL DISTRIBUTION WIDTH 14.4 % (11.6-14.6)
[2019-04-30 06:01] LABS: LDL CHOLESTEROL 87 mg/dL (5-100)
[2019-04-30 06:02] LABS: HDL CHOLESTEROL 46 mg/dL (40-59); T4 FREE 1.29 ng/dL (0.76-1.46)
[2019-04-30] MEDS: DEXT 5%/0.45% NACL KCL 10MEQ/L 1,000 ML IV SCH ×2 (06:24→20:20)
[2019-04-30 08:05] LABS: BG CARBOXYHEMOGLOBIN 0.3 % (0.5-1.5); BG DEOXYHEMOGLOBIN 1.6 % (0.0-5.0); BG FRACTION INSPIRED OXYGEN 50; BG HCO3 ACT 22.9 mmol/L (22.0-26.0); BG OXYGEN SATURATION 98.4 % (92.0-98.5); BG OXYHEMOGLOBIN 98.1 % (94.0-97.0); BG PCO2 35.4 mmHg (35.0-45.0); BG PH 7.428 (7.350-7.450); BG PO2 121.5 mmHg (75.0-100.0); BG SAMPLE SITE RIGHT BRACHIAL; BG TIDAL VOLUME(mL) 450 mL; BG TOTAL HEMOGLOBIN 13.6 g/dL (12.0-18.0); BG VENT MODE VENT - A/C; BG VENT RATE 16 set
[2019-04-30] MEDS ORDERED: LIDOCAINE HCL 1% 20ML VIAL (Pyxis) INJ ONE (09:06)
[2019-04-30] MEDS ORDERED: SODIUM BICARBONATE 4% (2.4MEQ) 5ML VIAL IV ONE (09:06)
[2019-04-30] MEDS ORDERED: PHENYLEPHRINE 40 MG in DEXT 5% WATER 496 ML IV PRN (09:30)
[2019-04-30] MEDS: PANTOPRAZOLE SODIUM 40 MG/VIAL IV SCH (10:38)
[2019-04-30] MEDS: ENOXAPARIN 40MG/0.4ML SYR SUBCUT SCH (10:39)
[2019-04-30 12:12] LABS: PLATELET ESTIMATE NORMAL
[2019-04-30] MEDS ORDERED: PROPOFOL 10MG/ML 100ML 100 ML IV PRN (16:15)
[2019-04-30] MEDS: MORPHINE SULFATE 2 MG/ML CPJ (NOT FOR IM USE) IV PRN (19:44)
[2019-05-01] VITALS (96 sets, daily range): BP systolic 83–157; BP diastolic 54–98
[2019-05-01] MEDS: PROPOFOL 10MG/ML 100ML 100 ML IV PRN ×5 (02:18→21:18)
[2019-05-01] MEDS: IPRATROPIUM BROMIDE (0.02%) 0.5MG/2.5ML NEB HHN SCH ×5 (03:16→20:07)
[2019-05-01] MEDS: LEVOFLOXACIN 500MG PREMIX 100 ML IV SCH (06:50)
[2019-05-01] MEDS: BLOOD SUGAR DIAGNOSTIC STRIP TEST SCH ×4 (06:50→23:58)
[2019-05-01] MEDS: METHYLPREDNISOLONE SOD SUCC 40 MG/ML VIAL IV SCH ×3 (06:50→22:00)
[2019-05-01] MEDS: INSULIN LISPRO 100 UNITS/ML SUBCUT SCH ×3 (06:54→17:33)
[2019-05-01] MEDS: DEXT 5%/0.45% NACL KCL 10MEQ/L 1,000 ML IV SCH (08:00)
[2019-05-01 08:49] LABS: BG BASE EXCESS 0.3 mmol/L (-2.0-2.0); BG CARBOXYHEMOGLOBIN 0.3 % (0.5-1.5); BG DEOXYHEMOGLOBIN 1.1 % (0.0-5.0); BG FRACTION INSPIRED OXYGEN 50; BG HCO3 ACT 24.6 mmol/L (22.0-26.0); BG METHEMOGLOBIN 0.3 % (0.0-1.5); BG OXYGEN SATURATION 98.9 % (92.0-98.5); BG OXYHEMOGLOBIN 98.3 % (94.0-97.0); BG PCO2 38.7 mmHg (35.0-45.0); BG PH 7.421 (7.350-7.450); BG PO2 168.6 mmHg (75.0-100.0); BG SAMPLE SITE RIGHT RADIAL; BG TIDAL VOLUME(mL) 450 mL; BG TOTAL HEMOGLOBIN 12.7 g/dL (12.0-18.0); BG VENT MODE VENT - A/C; BG VENT RATE 16 set
[2019-05-01] MEDS: PANTOPRAZOLE SODIUM 40 MG/VIAL IV SCH (10:00)
[2019-05-01] MEDS: ENOXAPARIN 40MG/0.4ML SYR SUBCUT SCH (10:00)
[2019-05-01 10:34] LABS: HEMATOCRIT. 40.4 % (42.0-52.0); HEMOGLOBIN. 13.3 g/dL (14.0-18.0); MEAN CORPUSCULAR HEMOGLOBIN 29.9 pg (28.0-32.0); MEAN CORPUSCULAR VOLUME 91.1 fL (80.0-94.0); MEAN PLATELET VOLUME 8.8 fl (7.4-10.4); PLATELET 225 x1000/uL (130-400); RED BLOOD CELL COUNT 4.43 mill/uL (4.7-6.1); RED CELL DISTRIBUTION WIDTH 14.2 % (11.6-14.6)
[2019-05-01 10:43] LABS: CHLORIDE 106 mEq/L (98-107)
[2019-05-01 10:49] LABS: PHOSPHORUS 2.3 mg/dL (2.5-4.9)
[2019-05-01] MEDS: MORPHINE SULFATE 2 MG/ML CPJ (NOT FOR IM USE) IV PRN (11:39)
[2019-05-01 12:03] LABS: PLATELET ESTIMATE NORMAL
[2019-05-01] MEDS: DEXT 5%/0.45% NACL 1000ML 1,000 ML IV SCH (13:00)
[2019-05-01] MEDS ORDERED: LIDOCAINE HCL 2% JELLY 5ML MM NR (16:00)
[2019-05-02] VITALS (94 sets, daily range): BP systolic 88–159; BP diastolic 55–119
[2019-05-02] MEDS: INSULIN LISPRO 100 UNITS/ML SUBCUT SCH ×4 (00:04→19:05)
[2019-05-02] MEDS: MORPHINE SULFATE 2 MG/ML CPJ (NOT FOR IM USE) IV PRN ×2 (00:10→21:36)
[2019-05-02] MEDS: IPRATROPIUM BROMIDE (0.02%) 0.5MG/2.5ML NEB HHN SCH ×6 (00:36→20:47)
[2019-05-02] MEDS: PROPOFOL 10MG/ML 100ML 100 ML IV PRN ×4 (03:10→22:47)
[2019-05-02] MEDS: DEXT 5%/0.45% NACL 1000ML 1,000 ML IV SCH (05:22)
[2019-05-02] MEDS: METHYLPREDNISOLONE SOD SUCC 40 MG/ML VIAL IV SCH ×3 (06:06→21:36)
[2019-05-02] MEDS: BLOOD SUGAR DIAGNOSTIC STRIP TEST SCH ×3 (06:12→18:55)
[2019-05-02] MEDS: LEVOFLOXACIN 500MG PREMIX 100 ML IV SCH (06:13)
[2019-05-02 08:06] LABS: BG BASE EXCESS -0.2 mmol/L (-2.0-2.0); BG CARBOXYHEMOGLOBIN 0.3 % (0.5-1.5); BG DEOXYHEMOGLOBIN 1.5 % (0.0-5.0); BG FRACTION INSPIRED OXYGEN 35; BG HCO3 ACT 22.6 mmol/L (22.0-26.0); BG METHEMOGLOBIN 0.3 % (0.0-1.5); BG OXYGEN SATURATION 98.5 % (92.0-98.5); BG OXYHEMOGLOBIN 97.9 % (94.0-97.0); BG PCO2 31.6 mmHg (35.0-45.0); BG PEEP (cmH2O) 0 cmH2O; BG PH 7.473 (7.350-7.450); BG PO2 126.3 mmHg (75.0-100.0); BG SAMPLE SITE RIGHT RADIAL; BG TIDAL VOLUME(mL) 450 mL; BG TOTAL HEMOGLOBIN 12.9 g/dL (12.0-18.0); BG VENT MODE VENT - A/C; BG VENT RATE 16 set
[2019-05-02] MEDS: ENOXAPARIN 40MG/0.4ML SYR SUBCUT SCH (08:29)
[2019-05-02] MEDS: PANTOPRAZOLE SODIUM 40 MG/VIAL IV SCH (08:29)
[2019-05-02] MEDS: ACETYLCYSTEINE 100MG/ML 10% VIAL 4ML INH SCH (15:52)
[2019-05-02] MEDS ORDERED: PROPOFOL 10MG/ML 100ML 100 ML IV PRN (17:45)
[2019-05-03] VITALS (68 sets, daily range): BP systolic 121–175; BP diastolic 65–104
[2019-05-03] MEDS: BLOOD SUGAR DIAGNOSTIC STRIP TEST SCH ×4 (00:12→18:01)
[2019-05-03] MEDS: INSULIN LISPRO 100 UNITS/ML SUBCUT SCH ×4 (00:18→18:02)
[2019-05-03] MEDS: ACETYLCYSTEINE 100MG/ML 10% VIAL 4ML INH SCH ×3 (00:40→15:30)
[2019-05-03] MEDS: IPRATROPIUM BROMIDE (0.02%) 0.5MG/2.5ML NEB HHN SCH ×6 (00:40→20:37)
[2019-05-03] MEDS: DEXT 5%/0.45% NACL 1000ML 1,000 ML IV SCH (02:44)
[2019-05-03 06:26] LABS: HEMATOCRIT. 41.5 % (42.0-52.0); HEMOGLOBIN. 13.6 g/dL (14.0-18.0); MEAN CORPUSCULAR HEMOGLOBIN 29.6 pg (28.0-32.0); MEAN CORPUSCULAR VOLUME 90.3 fL (80.0-94.0); MEAN PLATELET VOLUME 8.8 fl (7.4-10.4); PLATELET 244 x1000/uL (130-400); RED CELL DISTRIBUTION WIDTH 13.9 % (11.6-14.6)
[2019-05-03 06:39] LABS: CHLORIDE 103 mEq/L (98-107)
[2019-05-03] MEDS: LEVOFLOXACIN 500MG PREMIX 100 ML IV SCH (06:39)
[2019-05-03] MEDS: METHYLPREDNISOLONE SOD SUCC 40 MG/ML VIAL IV SCH ×3 (06:39→21:13)
[2019-05-03] MEDS: PANTOPRAZOLE SODIUM 40 MG/VIAL IV SCH (09:13)
[2019-05-03] MEDS: ENOXAPARIN 40MG/0.4ML SYR SUBCUT SCH (09:13)
[2019-05-03 09:18] LABS: BG BASE EXCESS 2.9 mmol/L (-2.0-2.0); BG CARBOXYHEMOGLOBIN 0.3 % (0.5-1.5); BG DEOXYHEMOGLOBIN 2.9 % (0.0-5.0); BG FRACTION INSPIRED OXYGEN 35; BG METHEMOGLOBIN 0.1 % (0.0-1.5); BG OXYGEN SATURATION 97.1 % (92.0-98.5); BG OXYHEMOGLOBIN 96.7 % (94.0-97.0); BG PCO2 39.9 mmHg (35.0-45.0); BG PH 7.449 (7.350-7.450); BG PO2 92.1 mmHg (75.0-100.0); BG PRESSURE SUPPORT 8; BG SAMPLE SITE RIGHT RADIAL; BG TOTAL HEMOGLOBIN 13.8 g/dL (12.0-18.0); BG VENT MODE VENT - CPAP
[2019-05-03 17:01] LABS: PLATELET ESTIMATE NORMAL
[2019-05-04] VITALS (36 sets, daily range): BP systolic 104–152; BP diastolic 54–115
[2019-05-04] MEDS: IPRATROPIUM/ALBUTEROL 0.5-3(2.5)MG/3ML NEB HHN PRN (00:35)
[2019-05-04] MEDS: ACETYLCYSTEINE 100MG/ML 10% VIAL 4ML INH SCH ×3 (00:35→16:23)
[2019-05-04] MEDS: INSULIN LISPRO 100 UNITS/ML SUBCUT SCH ×4 (00:50→18:00)
[2019-05-04] MEDS: DEXT 5%/0.45% NACL 1000ML 1,000 ML IV SCH (00:52)
[2019-05-04] MEDS: BLOOD SUGAR DIAGNOSTIC STRIP TEST SCH ×4 (00:53→18:06)
[2019-05-04] MEDS: MORPHINE SULFATE 2 MG/ML CPJ (NOT FOR IM USE) IV PRN ×2 (01:06→05:20)
[2019-05-04] MEDS: IPRATROPIUM BROMIDE (0.02%) 0.5MG/2.5ML NEB HHN SCH ×5 (04:17→21:12)
[2019-05-04] MEDS: METHYLPREDNISOLONE SOD SUCC 40 MG/ML VIAL IV SCH ×2 (05:19→18:31)
[2019-05-04] MEDS: LEVOFLOXACIN 500MG PREMIX 100 ML IV SCH (05:20)
[2019-05-04 06:20] LABS: HEMATOCRIT. 36.9 % (42.0-52.0); HEMOGLOBIN. 12.5 g/dL (14.0-18.0); MEAN CORPUSCULAR HEMOGLOBIN 30.2 pg (28.0-32.0); MEAN CORPUSCULAR VOLUME 89.3 fL (80.0-94.0); MEAN PLATELET VOLUME 8.3 fl (7.4-10.4); PLATELET 253 x1000/uL (130-400); RED BLOOD CELL COUNT 4.13 mill/uL (4.7-6.1); RED CELL DISTRIBUTION WIDTH 13.9 % (11.6-14.6)
[2019-05-04 07:22] LABS: CHLORIDE 103 mEq/L (98-107)
[2019-05-04 09:34] LABS: PLATELET ESTIMATE NORMAL
[2019-05-04] MEDS: PANTOPRAZOLE SODIUM 40 MG/VIAL IV SCH (09:48)
[2019-05-04] MEDS: ENOXAPARIN 40MG/0.4ML SYR SUBCUT SCH (09:50)
[2019-05-04] MEDS: ACETAMINOPHEN 325MG TABLET PO PRN ×2 (12:06→22:19)
[2019-05-04] MEDS: DILTIAZEM HCL 30MG TABLET PO SCH ×2 (14:50→22:00)
[2019-05-04] MEDS: BUDESONIDE 0.5MG/2ML NEB HHN SCH (21:12)
[2019-05-05] VITALS: BP 116/73
[2019-05-05] MEDS: INSULIN LISPRO 100 UNITS/ML SUBCUT SCH ×5 (00:27→21:19)
[2019-05-05] MEDS: IPRATROPIUM/ALBUTEROL 0.5-3(2.5)MG/3ML NEB HHN PRN ×4 (01:00→15:38)
[2019-05-05] MEDS: ACETYLCYSTEINE 100MG/ML 10% VIAL 4ML INH SCH ×3 (01:00→15:38)
[2019-05-05 04:00] VITALS: BP 125/70
[2019-05-05] MEDS: IPRATROPIUM BROMIDE (0.02%) 0.5MG/2.5ML NEB HHN SCH ×3 (04:38→21:12)
[2019-05-05] MEDS: METHYLPREDNISOLONE SOD SUCC 40 MG/ML VIAL IV SCH ×2 (05:36→13:05)
[2019-05-05] MEDS: DILTIAZEM HCL 30MG TABLET PO SCH ×3 (05:37→21:18)
[2019-05-05] MEDS: BLOOD SUGAR DIAGNOSTIC STRIP TEST SCH ×5 (06:00→21:00)
[2019-05-05] MEDS: LEVOFLOXACIN 500MG PREMIX 100 ML IV SCH (06:11)
[2019-05-05] MEDS ORDERED: MORPHINE SULFATE 2 MG/ML CPJ (NOT FOR IM USE) IV PRN (06:30)
[2019-05-05 06:42] LABS: HEMATOCRIT. 41.3 % (42.0-52.0); HEMOGLOBIN. 13.7 g/dL (14.0-18.0); MEAN CORPUSCULAR HEMOGLOBIN 29.7 pg (28.0-32.0); MEAN CORPUSCULAR VOLUME 89.5 fL (80.0-94.0); MEAN PLATELET VOLUME 8.3 fl (7.4-10.4); PLATELET 295 x1000/uL (130-400); RED BLOOD CELL COUNT 4.62 mill/uL (4.7-6.1); RED CELL DISTRIBUTION WIDTH 13.7 % (11.6-14.6)
[2019-05-05] MEDS: PANTOPRAZOLE SODIUM 40 MG/VIAL IV SCH (08:14)
[2019-05-05] MEDS: ENOXAPARIN 40MG/0.4ML SYR SUBCUT SCH (08:14)
[2019-05-05 08:26] LABS: CHLORIDE 102 mEq/L (98-107)
[2019-05-05] MEDS: BUDESONIDE 0.5MG/2ML NEB HHN SCH ×2 (08:35→21:13)
[2019-05-05 11:14] LABS: PLATELET ESTIMATE NORMAL
[2019-05-05 11:20] VITALS: BP 130/76
[2019-05-05] MEDS: HYDROCODONE/ACETAMINOPHEN 5/325MG TABLET PO PRN ×3 (11:47→22:39)
[2019-05-05 15:38] VITALS: BP_SYST 129; BP_SYST 136; BP_DIAS 72; BP_DIAS 79
[2019-05-05 15:39] VITALS: BP 119/80
[2019-05-05 20:00] VITALS: BP 136/75
[2019-05-05] MEDS ORDERED: DEXTROSE 50% WATER 50ML SYRINGE IV PRN (20:30)
[2019-05-05] MEDS ORDERED: ZOLPIDEM TARTRATE 5MG TABLET PO PRN (20:30)
[2019-05-06] VITALS: BP 129/71
[2019-05-06] MEDS: ACETYLCYSTEINE 100MG/ML 10% VIAL 4ML INH SCH ×2 (00:51→07:57)
[2019-05-06] MEDS: IPRATROPIUM BROMIDE (0.02%) 0.5MG/2.5ML NEB HHN SCH ×3 (00:51→07:56)
[2019-05-06] MEDS: HYDROCODONE/ACETAMINOPHEN 5/325MG TABLET PO PRN (03:55)
[2019-05-06 04:00] VITALS: BP 125/72
[2019-05-06] MEDS: DILTIAZEM HCL 30MG TABLET PO SCH (06:11)
[2019-05-06] MEDS: BLOOD SUGAR DIAGNOSTIC STRIP TEST SCH (06:28)
[2019-05-06 07:50] LABS: HEMATOCRIT. 42.3 % (42.0-52.0); HEMOGLOBIN. 13.9 g/dL (14.0-18.0); MEAN CORPUSCULAR HEMOGLOBIN 29.9 pg (28.0-32.0); MEAN CORPUSCULAR VOLUME 90.8 fL (80.0-94.0); PLATELET 301 x1000/uL (130-400); RED BLOOD CELL COUNT 4.66 mill/uL (4.7-6.1); RED CELL DISTRIBUTION WIDTH 13.9 % (11.6-14.6)
[2019-05-06] MEDS: BUDESONIDE 0.5MG/2ML NEB HHN SCH (07:57)
[2019-05-06 08:04] VITALS: BP 150/97
[2019-05-06 08:06] LABS: CHLORIDE 105 mEq/L (98-107)
[2019-05-06] MEDS: PANTOPRAZOLE SODIUM 40 MG/VIAL IV SCH (09:00)
[2019-05-06] MEDS: METHYLPREDNISOLONE SOD SUCC 40 MG/ML VIAL IV SCH (09:00)
[2019-05-06] MEDS: ENOXAPARIN 40MG/0.4ML SYR SUBCUT SCH (09:26)
[2019-05-06] MEDS: INSULIN LISPRO 100 UNITS/ML SUBCUT SCH (09:31)
[2019-05-06 11:00] VITALS: BP 131/51
[2019-05-06 11:41] VITALS: BP 137/81
[2019-05-06 14:10] LABS: PLATELET ESTIMATE NORMAL
== END 2019-05-06 13:15 | disposition home health service (06) | DRG 870 ==
LOC: ER 05:52 → MICUSO 06:50 → EDBEDREQSVC 06:53 → EDBEDREQ 06:53 → EDBEDREQTM 06:53 → ENRESERV 09:41 → 6WST 05-04 17:21
PROVIDERS: ADMIT Hospitalist; ATTEND Hospitalist
PROC: 5A09357 Assistance with Respiratory Ventilation, Less than 24 Consecutive Hours, Continuous Positive Airway Pressure (ICD-10-PCS; 2019-04-28)
PROC: 5A1955Z Respiratory Ventilation, Greater than 96 Consecutive Hours (ICD-10-PCS; 2019-04-29)
PROC: 0BH17EZ Insertion of Endotracheal Airway into Trachea, Via Natural or Artificial Opening (ICD-10-PCS; 2019-04-29)
PROC: 02HV33Z Insertion of Infusion Device into Superior Vena Cava, Percutaneous Approach (ICD-10-PCS; principal; 2019-04-30)
PROC: B548ZZA Ultrasonography of Superior Vena Cava, Guidance (ICD-10-PCS; 2019-04-30)
DX: A41.9 Sepsis, unspecified organism (principal); J18.9 Pneumonia, unspecified organism; J96.21 Acute and chronic respiratory failure with hypoxia; J96.22 Acute and chronic respiratory failure with hypercapnia; E87.2 Acidosis; J44.1 Chronic obstructive pulmonary disease with (acute) exacerbation; J44.0 Chronic obstructive pulmonary disease with (acute) lower respiratory infection; I47.1 Supraventricular tachycardia; E87.6 Hypokalemia; I48.91 Unspecified atrial fibrillation; E11.9 Type 2 diabetes mellitus without complications; I95.9 Hypotension, unspecified; B18.2 Chronic viral hepatitis C; E78.5 Hyperlipidemia, unspecified; I11.9 Hypertensive heart disease without heart failure; N40.0 Benign prostatic hyperplasia without lower urinary tract symptoms; Z78.1 Physical restraint status; Z86.74 Personal history of sudden cardiac arrest; Z87.442 Personal history of urinary calculi; Z87.891 Personal history of nicotine dependence; Z88.0 Allergy status to penicillin; Z88.2 Allergy status to sulfonamides; Z79.899 Other long term (current) drug therapy; Z79.84 Long term (current) use of oral hypoglycemic drugs
CPT/HCPCS: 36415; 36600; 71045; 76937; 80048; 80053; 80061; 80305; 81003; 82375; 82550; 82553; 82805; 82962; 83605; 83735; 83880; 84100; 84145; 84439; 84443; 84478; 84484; 85025; 87070; 87077; 87186; 92610; 93005; 93306; 93970; 94003; 94640; 97116; 97162; 97166; 97530; 99291; C1725; C9113; J0153; J0330; J1650; J1815; J1956; J2060; J2250; J2270; J2543; J2704; J2920; J2930; J3475; J3490; J7060; J7608; J7620; J7626

== ENCOUNTER 2019-06-23 02:26 | Emergency (ER) | payer MEDICARE, MEDICAID ==
[~2019-06-23] VITALS: Ht 185.4 cm; Wt 65.0 kg
[~2019-06-23 02:26] MED LIST changes: -MEGE40TA27 PO; +MEGE40TA5 PO
[2019-06-23 02:45] VITALS: BP 129/81
[2019-06-23] MEDS ORDERED: SODIUM CHLORIDE 0.9% 1,000 ML IV ONE (03:07)
[2019-06-23 04:15] LABS: EOSINOPHILS % 9.5 % (0.0-5.0); LYMPHOCYTES % 27.9 % (20.0-50.0); MEAN PLATELET VOLUME 7.3 fl (7.4-10.4); MONOCYTES % 12.2 % (2.0-8.0); NEUTROPHILS % 49.4 % (40.0-76.0); PLATELET 257 x1000/uL (130-400); RED BLOOD CELL COUNT 4.32 mill/uL (4.7-6.1); RED CELL DISTRIBUTION WIDTH 14.2 % (11.6-14.6)
[2019-06-23 04:21] LABS: CHLORIDE 103 mEq/L (98-107)
== END 2019-06-23 05:13 | disposition home or self-care (01) ==
LOC: ER 02:26 → EDBEDREQ 03:12 → ER 05:13 → CANBEDREQ 06:46
DX: R53.1 Weakness (principal); R27.0 Ataxia, unspecified; R47.81 Slurred speech; J44.9 Chronic obstructive pulmonary disease, unspecified; E11.9 Type 2 diabetes mellitus without complications; I10 Essential (primary) hypertension; Z88.0 Allergy status to penicillin; Z88.2 Allergy status to sulfonamides; Z98.890 Other specified postprocedural states
CPT/HCPCS: 36415; 70450; 71045; 80053; 82962; 83605; 84484; 85025; 93005; 99285; J7030

== ENCOUNTER 2019-11-06 05:20 | Inpatient (IN) | payer MEDICARE, MEDICAID, OTHER ==
[~2019-11-06] VITALS: Ht 185.4 cm; Wt 60.8 kg
[2019-11-06 06:26] LABS: BASOPHILS % 0.9 % (0.0-2.0); EOSINOPHILS % 6.8 % (0.0-5.0); HEMATOCRIT. 42.1 % (42.0-52.0); HEMOGLOBIN. 14.2 g/dL (14.0-18.0); MEAN CORPUSCULAR HEMOGLOBIN 30.4 pg (28.0-32.0); MEAN CORPUSCULAR VOLUME 89.9 fL (80.0-94.0); MEAN PLATELET VOLUME 7.4 fl (7.4-10.4); MONOCYTES % 12.6 % (2.0-8.0); NEUTROPHILS % 50.7 % (40.0-76.0); PLATELET 293 x1000/uL (130-400); RED BLOOD CELL COUNT 4.69 mill/uL (4.7-6.1); RED CELL DISTRIBUTION WIDTH 16.4 % (11.6-14.6)
[2019-11-06] MEDS ORDERED: METHYLPREDNISOLONE SOD SUCC 125 MG/2 ML VIAL IV STA (06:28)
[2019-11-06] MEDS ORDERED: IPRATROPIUM BROMIDE (0.02%) 0.5MG/2.5ML NEB HHN STA (06:28)
[2019-11-06] MEDS ORDERED: ALBUTEROL (0.083%) 2.5MG/3ML NEB HHN STA (06:28)
[2019-11-06 06:30] LABS: CHLORIDE 105 mEq/L (98-107)
[2019-11-06] MEDS ORDERED: LEVOFLOXACIN 500MG PREMIX 100 ML IV ONE (07:15)
[2019-11-06] MEDS ORDERED: MAGNESIUM 1 G PREMIX 100 ML IV ONE (07:15)
[2019-11-06] MEDS ORDERED: MORPHINE SULFATE 4 MG/ML CPJ (NOT FOR IM USE) IV ONE (08:30)
[2019-11-06] MEDS ORDERED: CLONIDINE 0.1MG TABLET PO PRN (08:45)
[2019-11-06] MEDS ORDERED: MAGNESIUM/ALUMINUM HYDROXIDE/SIMETHICONE 30ML UDC PO PRN (08:45)
[2019-11-06] MEDS ORDERED: ACETAMINOPHEN 325MG TABLET PO PRN (08:45)
[2019-11-06] MEDS ORDERED: IPRATROPIUM/ALBUTEROL 0.5-3(2.5)MG/3ML NEB NEB PRN (08:45)
[2019-11-06] MEDS ORDERED: ONDANSETRON HCL 4MG/2ML INJ IV PRN (08:45)
[2019-11-06] MEDS ORDERED: GUAIFENESIN 200MG/10ML SUGAR FREE UDC PO PRN (08:45)
[2019-11-06] MEDS ORDERED: DOCUSATE SODIUM 100MG CAPSULE PO PRN (08:45)
[2019-11-06] MEDS ORDERED: LEVOFLOXACIN 500MG PREMIX 100 ML IV SCH (09:00)
[2019-11-06] MEDS: AMLODIPINE 10MG TABLET PO SCH (09:30)
[2019-11-06] MEDS: ENOXAPARIN 40MG/0.4ML SYR SUBCUT SCH (09:30)
[2019-11-06] MEDS: ASPIRIN 81MG EC TABLET PO SCH (09:30)
[2019-11-06] MEDS ORDERED: LORAZEPAM 2MG/ML CPJ IV PRN (11:15)
[2019-11-06] MEDS: HYDROCODONE/APAP 7.5/325MG 1 TAB TABLET PO PRN ×3 (11:43→20:01)
[2019-11-06] MEDS: METHYLPREDNISOLONE SOD SUCC 125 MG/2 ML VIAL IV SCH ×2 (12:28→17:24)
[2019-11-06] MEDS ORDERED: DEXTROSE 50% WATER 50ML SYRINGE IV PRN (14:45)
[2019-11-06] MEDS: INSULIN LISPRO (HIGH DOSE) 100 UNITS/ML SUBCUT SCH ×3 (14:54→20:21)
[2019-11-06 15:21] VITALS: BP 135/76
[2019-11-06] MEDS: BLOOD SUGAR DIAGNOSTIC STRIP TEST SCH ×2 (16:02→20:21)
[2019-11-06 20:00] VITALS: BP 144/66
[2019-11-07] VITALS: BP 150/80
[2019-11-07] MEDS: METHYLPREDNISOLONE SOD SUCC 125 MG/2 ML VIAL IV SCH ×4 (00:06→17:26)
[2019-11-07 04:00] VITALS: BP 123/70
[2019-11-07] MEDS: BLOOD SUGAR DIAGNOSTIC STRIP TEST SCH ×4 (06:11→21:00)
[2019-11-07] MEDS: HYDROCODONE/APAP 7.5/325MG 1 TAB TABLET PO PRN ×4 (06:59→20:14)
[2019-11-07 07:41] LABS: HEMATOCRIT. 42.7 % (42.0-52.0); HEMOGLOBIN. 14.3 g/dL (14.0-18.0); MEAN CORPUSCULAR HEMOGLOBIN 29.9 pg (28.0-32.0); MEAN CORPUSCULAR VOLUME 89.4 fL (80.0-94.0); MEAN PLATELET VOLUME 7.9 fl (7.4-10.4); PLATELET 323 x1000/uL (130-400); RED BLOOD CELL COUNT 4.78 mill/uL (4.7-6.1); RED CELL DISTRIBUTION WIDTH 15.9 % (11.6-14.6)
[2019-11-07 08:00] VITALS: BP 136/72
[2019-11-07] MEDS: AMLODIPINE 10MG TABLET PO SCH (08:11)
[2019-11-07] MEDS: ASPIRIN 81MG EC TABLET PO SCH (08:11)
[2019-11-07] MEDS: LEVOFLOXACIN 500MG PREMIX 100 ML IV SCH (08:11)
[2019-11-07] MEDS: ENOXAPARIN 40MG/0.4ML SYR SUBCUT SCH (08:11)
[2019-11-07] MEDS: INSULIN LISPRO (HIGH DOSE) 100 UNITS/ML SUBCUT SCH ×4 (08:12→20:33)
[2019-11-07] MEDS ORDERED: LEVOFLOXACIN 500MG PREMIX 100 ML IV SCH (09:00)
[2019-11-07 09:25] LABS: PLATELET ESTIMATE NORMAL
[2019-11-07 10:32] LABS: CHLORIDE 103 mEq/L (98-107)
[2019-11-07 11:53] LABS: BG BASE EXCESS -0.8 mmol/L (-2.0-2.0); BG CARBOXYHEMOGLOBIN 0.3 % (0.5-1.5); BG DEOXYHEMOGLOBIN 28.4 % (0.0-5.0); BG FRACTION INSPIRED OXYGEN 21; BG HCO3 ACT 24.3 mmol/L (22.0-26.0); BG METHEMOGLOBIN 0.1 % (0.0-1.5); BG OXYGEN SATURATION 71.5 % (92.0-98.5); BG OXYHEMOGLOBIN 71.2 % (94.0-97.0); BG PCO2 41.8 mmHg (35.0-45.0); BG PH 7.383 (7.350-7.450); BG PO2 37.7 mmHg (75.0-100.0); BG SAMPLE SITE RIGHT RADIAL; BG TOTAL HEMOGLOBIN 14.4 g/dL (12.0-18.0); BG VENT MODE ROOM AIR
[2019-11-07 12:00] VITALS: BP 115/76
[2019-11-07] MEDS: ALBUTEROL 6.7GM HFA INHALER ORI SCH ×2 (15:52→20:20)
[2019-11-07 16:00] VITALS: BP 121/80
[2019-11-07 20:27] VITALS: BP 120/66
[2019-11-08 00:04] VITALS: BP 125/69
[2019-11-08] MEDS: METHYLPREDNISOLONE SOD SUCC 125 MG/2 ML VIAL IV SCH ×2 (00:04→06:04)
[2019-11-08] MEDS: ALBUTEROL 6.7GM HFA INHALER ORI SCH (01:00)
[2019-11-08 04:00] VITALS: BP 143/80
[2019-11-08] MEDS: HYDROCODONE/APAP 7.5/325MG 1 TAB TABLET PO PRN ×5 (05:07→21:37)
[2019-11-08] MEDS: BLOOD SUGAR DIAGNOSTIC STRIP TEST SCH ×4 (06:35→21:28)
[2019-11-08 08:00] VITALS: BP 124/67
[2019-11-08] MEDS: ENOXAPARIN 40MG/0.4ML SYR SUBCUT SCH (09:22)
[2019-11-08] MEDS: LEVOFLOXACIN 500MG PREMIX 100 ML IV SCH (09:23)
[2019-11-08] MEDS: AMLODIPINE 10MG TABLET PO SCH (09:23)
[2019-11-08] MEDS: ASPIRIN 81MG EC TABLET PO SCH (09:23)
[2019-11-08] MEDS: INSULIN LISPRO (HIGH DOSE) 100 UNITS/ML SUBCUT SCH ×4 (09:24→21:38)
[2019-11-08 12:00] VITALS: BP 118/71
[2019-11-08 16:00] VITALS: BP 114/73
[2019-11-08] MEDS: PREDNISONE 20MG TABLET PO SCH (17:41)
[2019-11-08 20:00] VITALS: BP 124/62
[2019-11-09] VITALS: BP 134/68
[2019-11-09] MEDS: IPRATROPIUM/ALBUTEROL 0.5-3(2.5)MG/3ML NEB HHN SCH ×3 (02:09→13:29)
[2019-11-09] MEDS: HYDROCODONE/APAP 7.5/325MG 1 TAB TABLET PO PRN ×4 (02:29→14:52)
[2019-11-09 04:00] VITALS: BP 127/77
[2019-11-09] MEDS: BLOOD SUGAR DIAGNOSTIC STRIP TEST SCH ×2 (06:28→12:29)
[2019-11-09] MEDS: INSULIN LISPRO (HIGH DOSE) 100 UNITS/ML SUBCUT SCH ×2 (07:40→12:44)
[2019-11-09 08:00] VITALS: BP 113/68
[2019-11-09] MEDS: ENOXAPARIN 40MG/0.4ML SYR SUBCUT SCH (10:38)
[2019-11-09] MEDS: AMLODIPINE 10MG TABLET PO SCH (10:38)
[2019-11-09] MEDS: ASPIRIN 81MG EC TABLET PO SCH (10:38)
[2019-11-09] MEDS: PREDNISONE 20MG TABLET PO SCH (10:38)
[2019-11-09] MEDS: LEVOFLOXACIN 500MG PREMIX 100 ML IV SCH (10:39)
[2019-11-09 12:00] VITALS: BP 101/65
[2019-11-09 14:19] VITALS: BP 113/63
[2019-11-09 14:52] VITALS: BP 113/63
== END 2019-11-09 15:32 | disposition home health service (06) | DRG 190 ==
LOC: ER 05:20 → ENRESERV 14:02 → 7WST 15:16 → 8WST 11-08 16:32
PROVIDERS: ADMIT Hospitalist; ATTEND Hospitalist
PROC: 5A2204Z Restoration of Cardiac Rhythm, Single (ICD-10-PCS; principal; 2019-11-07)
DX: J44.1 Chronic obstructive pulmonary disease with (acute) exacerbation (principal); J96.01 Acute respiratory failure with hypoxia; J96.02 Acute respiratory failure with hypercapnia; Z68.1 Body mass index [BMI] 19.9 or less, adult; I47.1 Supraventricular tachycardia; G89.4 Chronic pain syndrome; I10 Essential (primary) hypertension; E11.9 Type 2 diabetes mellitus without complications; F41.9 Anxiety disorder, unspecified; B19.20 Unspecified viral hepatitis C without hepatic coma; E78.5 Hyperlipidemia, unspecified; N40.0 Benign prostatic hyperplasia without lower urinary tract symptoms; Z87.891 Personal history of nicotine dependence; Z88.0 Allergy status to penicillin; Z03.818 Encounter for observation for suspected exposure to other biological agents ruled out; Z88.2 Allergy status to sulfonamides; Z79.52 Long term (current) use of systemic steroids; Z79.899 Other long term (current) drug therapy
CPT/HCPCS: 36415; 36600; 71045; 80053; 82375; 82805; 82962; 83880; 84484; 85025; 87635; 93005; 93970; 94640; 99291; J1650; J1815; J1956; J2270; J2930; J3475; J7512

== ENCOUNTER 2019-11-22 23:07 | Emergency (ER) | payer MEDICARE, MEDICAID ==
[~2019-11-22] VITALS: Ht 172.7 cm; Wt 59.0 kg
[2019-11-23] MEDS ORDERED: ONDANSETRON HCL 4MG/2ML INJ IV STA (00:25)
[2019-11-23] MEDS ORDERED: MORPHINE SULFATE 4 MG/ML CPJ (NOT FOR IM USE) IV STA (00:25)
[2019-11-23 01:12] LABS: HEMATOCRIT. 38.7 % (42.0-52.0); MEAN CORPUSCULAR HEMOGLOBIN 30.4 pg (28.0-32.0); MEAN CORPUSCULAR VOLUME 90.3 fL (80.0-94.0); MEAN PLATELET VOLUME 7.1 fl (7.4-10.4); PLATELET 177 x1000/uL (130-400); RED BLOOD CELL COUNT 4.28 mill/uL (4.7-6.1); RED CELL DISTRIBUTION WIDTH 15.8 % (11.6-14.6)
[2019-11-23 01:19] LABS: CHLORIDE 106 mEq/L (98-107)
[2019-11-23 01:21] LABS: PLATELET ESTIMATE NORMAL
[2019-11-23 05:50] VITALS: BP 130/72
== END 2019-11-23 05:53 | disposition home or self-care (01) ==
LOC: ER 23:07
DX: R00.2 Palpitations (principal); E11.9 Type 2 diabetes mellitus without complications; J44.9 Chronic obstructive pulmonary disease, unspecified; Z79.84 Long term (current) use of oral hypoglycemic drugs; Z88.0 Allergy status to penicillin; Z88.2 Allergy status to sulfonamides
CPT/HCPCS: 36415; 71045; 80053; 83880; 84484; 85025; 93005; 96374; 96375; 99285; J2270; J2405

== ENCOUNTER 2019-12-16 10:51 | Inpatient (IN) | payer MEDICARE, MEDICAID, OTHER ==
[~2019-12-16] VITALS: Ht 180.3 cm; Wt 61.2 kg
[2019-12-16] MEDS ORDERED: SODIUM CHLORIDE 0.9% 1,000 ML IV ONE (11:25)
[2019-12-16] MEDS ORDERED: KETOROLAC 30MG/ML VIAL IV STA (11:25)
[2019-12-16] MEDS ORDERED: ONDANSETRON HCL 4MG/2ML INJ IV STA (11:25)
[2019-12-16 11:47] LABS: BASOPHILS % 0.9 % (0.0-2.0); EOSINOPHILS % 3.5 % (0.0-5.0); LYMPHOCYTES % 28.7 % (20.0-50.0); MEAN CORPUSCULAR HEMOGLOBIN 30.9 pg (28.0-32.0); MEAN CORPUSCULAR VOLUME 90.6 fL (80.0-94.0); MEAN PLATELET VOLUME 7.8 fl (7.4-10.4); NEUTROPHILS % 57.9 % (40.0-76.0); PLATELET 287 x1000/uL (130-400); RED BLOOD CELL COUNT 4.86 mill/uL (4.7-6.1); RED CELL DISTRIBUTION WIDTH 14.4 % (11.6-14.6)
[2019-12-16 11:51] LABS: CHLORIDE 103 mEq/L (98-107)
[2019-12-16 12:12] LABS: CLARITY URINE CLEAR (CLEAR); COLOR URINE YELLOW (YELLOW); KETONES URINE NEGATIVE (NEGATIVE); LEUKOCYTE ESTERASE URINE NEGATIVE (NEGATIVE); NITRITE URINE NEGATIVE (NEGATIVE); OCCULT BLOOD URINE NEGATIVE (NEGATIVE); PH URINE 6.5 (4.5-8.0); PROTEIN URINE NEGATIVE (NEGATIVE); SPECIFIC GRAVITY URINE 1.017 (1.005-1.030); UROBILINOGEN URINE 0.2 E.U./dL (0.2-1.0)
[2019-12-16 12:35] LABS: *BARBITURATES SCREEN URINE NEGATIVE (NEGATIVE)
[2019-12-16 12:36] LABS: *BENZODIAZEPINES SCREEN URINE NEGATIVE (NEGATIVE); *COCAINE SCREEN URINE NEGATIVE (NEGATIVE); CANNABINOID URINE SCREEN NEGATIVE (NEGATIVE); METHADONE URINE SCREEN NEGATIVE (NEGATIVE); OPIATES URINE SCREEN PRESUMTIVE POSITIVE (NEGATIVE); PHENCYCLIDINE URINE SCREEN NEGATIVE (NEGATIVE)
[2019-12-16 12:37] LABS: *AMPHETAMINES SCREEN URINE NEGATIVE (NEGATIVE)
[2019-12-16 12:46] LABS: INR 1.1; PARTIAL THROMBOPLASTIN TIME 27.4 sec (23.4-31.0); PROTHROMBIN TIME 11.6 sec (9.6-11.0)
[2019-12-16] MEDS ORDERED: DEXTROSE 50% WATER 50ML SYRINGE IV PRN (15:00)
[2019-12-16] MEDS ORDERED: IPRATROPIUM/ALBUTEROL 0.5-3(2.5)MG/3ML NEB NEB PRN (15:00)
[2019-12-16] MEDS ORDERED: ONDANSETRON HCL 4MG/2ML INJ IV PRN (15:00)
[2019-12-16] MEDS ORDERED: ACETAMINOPHEN 650MG SUPP PR PRN (15:00)
[2019-12-16] MEDS: ENOXAPARIN 40MG/0.4ML SYR SUBCUT SCH (16:22)
[2019-12-16 17:15] VITALS: BP 154/75
[2019-12-16] MEDS: INSULIN LISPRO 100 UNITS/ML SUBCUT SCH ×2 (17:50→21:00)
[2019-12-16] MEDS: BLOOD SUGAR DIAGNOSTIC STRIP TEST SCH ×3 (17:56→21:07)
[2019-12-16] MEDS: KETOROLAC 15MG/ML VIAL IV PRN (18:18)
[2019-12-16] MEDS: DEXT 5%/LACTATED RINGERS 1,000 ML IV SCH (20:56)
[2019-12-16 21:08] VITALS: BP 148/79
[2019-12-16] MEDS: LORAZEPAM 2MG/ML CPJ IV PRN (21:57)
[2019-12-16 22:08] VITALS: BP 148/79
[2019-12-16] MEDS ORDERED: TAMS-11 PO (22:56)
[2019-12-16] MEDS ORDERED: HYDR-4009 PO (22:56)
[2019-12-17] VITALS: BP 127/58
[2019-12-17] MEDS: KETOROLAC 15MG/ML VIAL IV PRN ×2 (03:25→09:37)
[2019-12-17 04:00] VITALS: BP 128/83
[2019-12-17] MEDS: BLOOD SUGAR DIAGNOSTIC STRIP TEST SCH ×4 (06:14→22:04)
[2019-12-17] MEDS: DEXT 5%/LACTATED RINGERS 1,000 ML IV SCH ×3 (06:49→23:14)
[2019-12-17] MEDS: INSULIN LISPRO 100 UNITS/ML SUBCUT SCH ×4 (07:49→22:03)
[2019-12-17 08:00] VITALS: BP 129/74
[2019-12-17] MEDS: PANTOPRAZOLE SODIUM 40 MG/VIAL IV SCH (08:30)
[2019-12-17 12:00] VITALS: BP 141/63
[2019-12-17] MEDS: ACETAMINOPHEN 650MG SUPP PR PRN ×2 (13:49→20:56)
[2019-12-17 16:00] VITALS: BP 152/65
[2019-12-17] MEDS: ENOXAPARIN 40MG/0.4ML SYR SUBCUT SCH (16:47)
[2019-12-17 20:00] VITALS: BP 155/91
[2019-12-17] MEDS: LORAZEPAM 2MG/ML CPJ IV PRN (22:29)
[2019-12-18 00:23] VITALS: BP 107/54
[2019-12-18 04:00] VITALS: BP 132/77
[2019-12-18] MEDS: DEXT 5%/LACTATED RINGERS 1,000 ML IV SCH ×2 (06:18→13:18)
[2019-12-18] MEDS: BLOOD SUGAR DIAGNOSTIC STRIP TEST SCH ×2 (06:18→13:18)
[2019-12-18] MEDS: INSULIN LISPRO 100 UNITS/ML SUBCUT SCH ×2 (07:50→13:17)
[2019-12-18 08:00] VITALS: BP 135/79
[2019-12-18] MEDS: PANTOPRAZOLE SODIUM 40 MG/VIAL IV SCH (09:45)
[2019-12-18 12:00] VITALS: BP 132/76
[2019-12-18 14:26] VITALS: BP 132/76
[2019-12-18] MEDS: ENOXAPARIN 40MG/0.4ML SYR SUBCUT SCH (15:44)
[2019-12-18] MEDS ORDERED: FAMOTIDINE 20MG/2ML VIAL IV SCH (21:00)
== END 2019-12-18 17:00 | disposition home or self-care (01) | DRG 389 ==
LOC: ER 10:51 → 6WST 14:30 → SUPCPDRO 14:49 → ENRESERV 15:50
PROVIDERS: ADMIT Internal Medicine; ATTEND Internal Medicine
DX: K56.7 Ileus, unspecified (principal); F11.20 Opioid dependence, uncomplicated; E87.1 Hypo-osmolality and hyponatremia; J44.9 Chronic obstructive pulmonary disease, unspecified; E11.9 Type 2 diabetes mellitus without complications; G89.29 Other chronic pain; Z88.0 Allergy status to penicillin; Z88.2 Allergy status to sulfonamides; Z79.84 Long term (current) use of oral hypoglycemic drugs; Z79.899 Other long term (current) drug therapy; Z76.5 Malingerer [conscious simulation]
CPT/HCPCS: 36415; 71045; 74018; 74176; 80053; 80061; 80305; 81003; 82962; 83036; 83880; 84484; 85025; 93005; 93970; 99285; C9113; J1650; J1815; J1885; J2060; J2405; J7030

== ENCOUNTER 2021-01-03 06:32 | Inpatient (IN) | payer MEDICARE, MEDICAID ==
[~2021-01-03] VITALS: Ht 165.1 cm; Wt 61.7 kg
[2021-01-03] MEDS: IPRATROPIUM/ALBUTEROL 0.5-3(2.5)MG/3ML NEB HHN SCH ×2 (00:36→21:10)
[~2021-01-03 06:32] MED LIST changes: -ALBU2.5V13 INH; -ALBU6.7H11 INH; +ALBU6.7H15 INH; +ASPI-1497 PO; -CARI250T PO; -LORA2TAB2 PO; +TAMS-11 PO
[2021-01-03] MEDS ORDERED: IPRATROPIUM BROMIDE (0.02%) 0.5MG/2.5ML NEB HHN STA (06:46)
[2021-01-03] MEDS ORDERED: METHYLPREDNISOLONE SOD SUCC 125 MG/2 ML VIAL IV STA (06:46)
[2021-01-03] MEDS ORDERED: MAGNESIUM 2 G PREMIX 50 ML IV STA (06:46)
[2021-01-03] MEDS ORDERED: ALBUTEROL (0.083%) 2.5MG/3ML NEB HHN STA (06:46)
[2021-01-03 07:26] LABS: HEMATOCRIT. 45.1 % (42.0-52.0); HEMOGLOBIN. 14.3 g/dL (14.0-18.0); MEAN CORPUSCULAR HEMOGLOBIN 28.4 pg (28.0-32.0); MEAN CORPUSCULAR VOLUME 89.5 fL (80.0-94.0); MEAN PLATELET VOLUME 7.2 fl (7.4-10.4); PLATELET 289 x1000/uL (130-400); RED BLOOD CELL COUNT 5.04 mill/uL (4.7-6.1); RED CELL DISTRIBUTION WIDTH 15.6 % (11.6-14.6)
[2021-01-03 07:37] LABS: CHLORIDE 105 mEq/L (98-107); PROTHROMBIN TIME 10.9 sec (9.6-11.0)
[2021-01-03 08:07] LABS: CLARITY URINE CLEAR (CLEAR); COLOR URINE YELLOW (YELLOW); KETONES URINE NEGATIVE (NEGATIVE); LEUKOCYTE ESTERASE URINE NEGATIVE (NEGATIVE); NITRITE URINE NEGATIVE (NEGATIVE); OCCULT BLOOD URINE NEGATIVE (NEGATIVE); PROTEIN URINE NEGATIVE (NEGATIVE); SPECIFIC GRAVITY URINE 1.014 (1.005-1.030)
[2021-01-03 08:09] LABS: PLATELET ESTIMATE NORMAL
[2021-01-03] MEDS ORDERED: LEVOFLOXACIN 500MG PREMIX 100 ML IV ONE (08:15)
[2021-01-03] MEDS ORDERED: ACETAMINOPHEN 325MG TABLET PO PRN ×2 (10:45)
[2021-01-03] MEDS ORDERED: ONDANSETRON HCL 4MG/2ML INJ IV PRN (10:45)
[2021-01-03] MEDS ORDERED: DOCUSATE SODIUM 100MG CAPSULE PO PRN (10:45)
[2021-01-03] MEDS ORDERED: MAGNESIUM/ALUMINUM HYDROXIDE/SIMETHICONE 30ML UDC PO PRN (10:45)
[2021-01-03] MEDS ORDERED: NITROGLYCERIN 0.4MG TABLET SL SL PRN (10:45)
[2021-01-03] MEDS ORDERED: DEXTROSE 50% WATER 50ML SYRINGE IV PRN (10:45)
[2021-01-03] MEDS ORDERED: IPRATROPIUM/ALBUTEROL 0.5-3(2.5)MG/3ML NEB NEB PRN (10:45)
[2021-01-03] MEDS ORDERED: CLONIDINE 0.1MG TABLET PO PRN (10:45)
[2021-01-03 10:58] LABS: ETHANOL BLOOD < 10 mg/dL
[2021-01-03] MEDS ORDERED: ACETAMINOPHEN 325MG TABLET PO NR (11:00)
[2021-01-03 11:01] LABS: LDL CHOLESTEROL 99 mg/dL (5-100)
[2021-01-03 11:02] LABS: HDL CHOLESTEROL 68 mg/dL (40-59)
[2021-01-03] MEDS: GUAIFENESIN/DM 600MG/30MG ER TAB 12HR PO SCH ×2 (11:17→21:46)
[2021-01-03] MEDS: BLOOD SUGAR DIAGNOSTIC STRIP TEST SCH ×3 (12:10→20:22)
[2021-01-03] MEDS: FAMOTIDINE 20MG TABLET PO SCH ×2 (12:10→20:19)
[2021-01-03] MEDS: ENOXAPARIN 40MG/0.4ML SYR SUBCUT SCH (12:12)
[2021-01-03] MEDS: INSULIN LISPRO 100 UNITS/ML SUBCUT SCH ×3 (12:13→20:20)
[2021-01-03 13:00] VITALS: BP 143/73
[2021-01-03 13:45] VITALS: BP 139/76
[2021-01-03] MEDS: METHYLPREDNISOLONE SOD SUCC 125 MG/2 ML VIAL IV SCH ×2 (14:09→21:46)
[2021-01-03] MEDS: KETOROLAC 15MG/ML VIAL IV PRN ×2 (14:09→22:03)
[2021-01-03 14:48] VITALS: BP 139/76
[2021-01-03 16:00] VITALS: BP_SYST 126; BP_SYST 129; BP_DIAS 56; BP_DIAS 66
[2021-01-03 16:57] LABS: *AMPHETAMINES SCREEN URINE NEGATIVE (NEGATIVE); *BARBITURATES SCREEN URINE NEGATIVE (NEGATIVE); *BENZODIAZEPINES SCREEN URINE NEGATIVE (NEGATIVE); *COCAINE SCREEN URINE NEGATIVE (NEGATIVE); METHADONE URINE SCREEN NEGATIVE (NEGATIVE); OPIATES URINE SCREEN PRESUMTIVE POSITIVE (NEGATIVE)
[2021-01-03 16:58] LABS: CANNABINOID URINE SCREEN NEGATIVE (NEGATIVE); PHENCYCLIDINE URINE SCREEN NEGATIVE (NEGATIVE)
[2021-01-03] MEDS: LORAZEPAM 0.5MG TABLET PO PRN (17:14)
[2021-01-03] MEDS: GUAIFENESIN 200MG/10ML SUGAR FREE UDC PO PRN (17:14)
[2021-01-03 17:17] LABS: CREATINE KINASE 31 IU/L (39-308); CREATINE KINASE MB FRACTION 2.1 ng/mL (0.5-3.6)
[2021-01-03] MEDS ORDERED: HYDR-4001 PO (17:57)
[2021-01-03 20:00] VITALS: BP 129/71
[2021-01-03] MEDS: ASCORBIC ACID 500 MG TABLET PO SCH (20:19)
[2021-01-03] MEDS: ZOLPIDEM TARTRATE 5MG TABLET PO PRN (21:52)
[2021-01-03 22:00] VITALS: BP 125/65
[2021-01-04] VITALS (8 sets, daily range): BP systolic 111–149; BP diastolic 55–76
[2021-01-04 00:36] LABS: CREATINE KINASE 30 IU/L (39-308)
[2021-01-04 00:37] LABS: CREATINE KINASE MB FRACTION 1.9 ng/mL (0.5-3.6)
[2021-01-04] MEDS: IPRATROPIUM/ALBUTEROL 0.5-3(2.5)MG/3ML NEB HHN SCH ×5 (03:54→22:25)
[2021-01-04] MEDS: METHYLPREDNISOLONE SOD SUCC 125 MG/2 ML VIAL IV SCH ×3 (05:52→22:01)
[2021-01-04] MEDS: INSULIN LISPRO 100 UNITS/ML SUBCUT SCH ×4 (06:51→22:29)
[2021-01-04] MEDS: BLOOD SUGAR DIAGNOSTIC STRIP TEST SCH ×4 (06:52→21:59)
[2021-01-04 08:04] LABS: CHLORIDE 100 mEq/L (98-107)
[2021-01-04 08:14] LABS: PHOSPHORUS 2.8 mg/dL (2.5-4.9)
[2021-01-04 08:16] LABS: HEMATOCRIT. 39.6 % (42.0-52.0); HEMOGLOBIN. 13.2 g/dL (14.0-18.0); MEAN CORPUSCULAR HEMOGLOBIN 29.2 pg (28.0-32.0); MEAN CORPUSCULAR VOLUME 87.2 fL (80.0-94.0); MEAN PLATELET VOLUME 7.5 fl (7.4-10.4); PLATELET 313 x1000/uL (130-400); RED BLOOD CELL COUNT 4.54 mill/uL (4.7-6.1); RED CELL DISTRIBUTION WIDTH 14.8 % (11.6-14.6)
[2021-01-04] MEDS: FAMOTIDINE 20MG TABLET PO SCH ×2 (09:04→22:01)
[2021-01-04] MEDS: ASCORBIC ACID 500 MG TABLET PO SCH ×2 (09:04→22:01)
[2021-01-04] MEDS: ASPIRIN 325MG EC TABLET PO SCH (09:04)
[2021-01-04] MEDS: ZINC SULFATE 220 MG ( 50 ) CAPSULE PO SCH (09:04)
[2021-01-04] MEDS: CHOLECALCIFEROL (D3) 1000 UNIT TABLET PO SCH (09:04)
[2021-01-04] MEDS: KETOROLAC 15MG/ML VIAL IV PRN ×3 (09:05→22:02)
[2021-01-04] MEDS ORDERED: LEVOFLOXACIN 500MG PREMIX 100 ML IV SCH (10:00)
[2021-01-04] MEDS: GUAIFENESIN/DM 600MG/30MG ER TAB 12HR PO SCH ×2 (10:00→22:01)
[2021-01-04] MEDS: TAMSULOSIN HCL 0.4MG SR CAPSULE PO SCH (12:45)
[2021-01-04] MEDS: ENOXAPARIN 40MG/0.4ML SYR SUBCUT SCH (12:47)
[2021-01-04] MEDS: LIDOCAINE 5% PATCH TOP SCH (12:49)
[2021-01-04] MEDS: LORAZEPAM 0.5MG TABLET PO PRN (14:10)
[2021-01-04] MEDS: GUAIFENESIN 200MG/10ML SUGAR FREE UDC PO PRN (14:10)
[2021-01-04 18:01] LABS: PLATELET ESTIMATE NORMAL
[2021-01-04] MEDS: ZOLPIDEM TARTRATE 5MG TABLET PO PRN (22:01)
[2021-01-04] MEDS: ATORVASTATIN CALCIUM 40MG TABLET PO SCH (22:01)
[2021-01-05] VITALS: BP 108/62
[2021-01-05] MEDS: IPRATROPIUM/ALBUTEROL 0.5-3(2.5)MG/3ML NEB HHN SCH ×6 (01:54→22:08)
[2021-01-05 04:00] VITALS: BP 116/76
[2021-01-05] MEDS: INSULIN LISPRO 100 UNITS/ML SUBCUT SCH ×4 (06:11→20:31)
[2021-01-05] MEDS: METHYLPREDNISOLONE SOD SUCC 125 MG/2 ML VIAL IV SCH ×3 (06:13→20:29)
[2021-01-05] MEDS: BLOOD SUGAR DIAGNOSTIC STRIP TEST SCH ×4 (06:14→20:31)
[2021-01-05 08:00] VITALS: BP 106/49
[2021-01-05] MEDS: FAMOTIDINE 20MG TABLET PO SCH ×2 (08:55→20:28)
[2021-01-05] MEDS: CHOLECALCIFEROL (D3) 1000 UNIT TABLET PO SCH (08:55)
[2021-01-05] MEDS: GUAIFENESIN/DM 600MG/30MG ER TAB 12HR PO SCH ×2 (08:55→20:28)
[2021-01-05] MEDS: ASPIRIN 325MG EC TABLET PO SCH (08:55)
[2021-01-05] MEDS: ZINC SULFATE 220 MG ( 50 ) CAPSULE PO SCH (08:55)
[2021-01-05] MEDS: LIDOCAINE 5% PATCH TOP SCH (08:55)
[2021-01-05] MEDS: TAMSULOSIN HCL 0.4MG SR CAPSULE PO SCH (08:55)
[2021-01-05] MEDS: ASCORBIC ACID 500 MG TABLET PO SCH ×2 (08:55→20:28)
[2021-01-05 12:00] VITALS: BP 115/52
[2021-01-05] MEDS: ENOXAPARIN 40MG/0.4ML SYR SUBCUT SCH (12:56)
[2021-01-05] MEDS ORDERED: LEVOFLOXACIN 500MG PREMIX 100 ML IV SCH (13:00)
[2021-01-05] MEDS: GUAIFENESIN 200MG/10ML SUGAR FREE UDC PO PRN (13:15)
[2021-01-05 16:00] VITALS: BP 124/62
[2021-01-05] MEDS: KETOROLAC 15MG/ML VIAL IV PRN (16:08)
[2021-01-05 20:00] VITALS: BP 116/67
[2021-01-05] MEDS: LORAZEPAM 0.5MG TABLET PO PRN (20:28)
[2021-01-05] MEDS: ZOLPIDEM TARTRATE 5MG TABLET PO PRN (20:28)
[2021-01-05] MEDS: ATORVASTATIN CALCIUM 40MG TABLET PO SCH (20:28)
[2021-01-06] VITALS: BP 125/64
[2021-01-06] MEDS: KETOROLAC 15MG/ML VIAL IV PRN ×2 (01:16→06:37)
[2021-01-06] MEDS: IPRATROPIUM/ALBUTEROL 0.5-3(2.5)MG/3ML NEB HHN SCH ×2 (03:47→08:13)
[2021-01-06 04:00] VITALS: BP 125/66
[2021-01-06] MEDS: BLOOD SUGAR DIAGNOSTIC STRIP TEST SCH (06:36)
[2021-01-06] MEDS: METHYLPREDNISOLONE SOD SUCC 125 MG/2 ML VIAL IV SCH (06:37)
[2021-01-06] MEDS: INSULIN LISPRO 100 UNITS/ML SUBCUT SCH (06:43)
[2021-01-06 08:00] VITALS: BP 146/85
[2021-01-06] MEDS: FAMOTIDINE 20MG TABLET PO SCH (08:36)
[2021-01-06] MEDS: CHOLECALCIFEROL (D3) 1000 UNIT TABLET PO SCH (08:36)
[2021-01-06] MEDS: ASPIRIN 325MG EC TABLET PO SCH (08:36)
[2021-01-06] MEDS: ASCORBIC ACID 500 MG TABLET PO SCH (08:36)
[2021-01-06] MEDS: TAMSULOSIN HCL 0.4MG SR CAPSULE PO SCH (08:36)
[2021-01-06] MEDS: ZINC SULFATE 220 MG ( 50 ) CAPSULE PO SCH (08:36)
[2021-01-06] MEDS: LIDOCAINE 5% PATCH TOP SCH (08:37)
[2021-01-06 10:15] VITALS: BP 146/85
[2021-01-06] MEDS: GUAIFENESIN/DM 600MG/30MG ER TAB 12HR PO SCH (11:16)
== END 2021-01-06 11:30 | disposition home health service (06) | DRG 189 ==
LOC: ER 06:32 → EDBEDREQTM 07:33 → EDBEDREQSVC 07:33 → MICUSO 08:43 → EDBEDREQTM 08:46 → EDBEDREQ 08:46 → 8WST 12:14
PROVIDERS: ADMIT Internal Medicine; ATTEND Internal Medicine
DX: J96.01 Acute respiratory failure with hypoxia (principal); J18.9 Pneumonia, unspecified organism; J44.1 Chronic obstructive pulmonary disease with (acute) exacerbation; E44.0 Moderate protein-calorie malnutrition; Z20.822 Contact with and (suspected) exposure to COVID-19; N40.0 Benign prostatic hyperplasia without lower urinary tract symptoms; E87.5 Hyperkalemia; E78.00 Pure hypercholesterolemia, unspecified; I11.0 Hypertensive heart disease with heart failure; I50.9 Heart failure, unspecified; E11.9 Type 2 diabetes mellitus without complications; Z79.899 Other long term (current) drug therapy; Z79.51 Long term (current) use of inhaled steroids; Z79.84 Long term (current) use of oral hypoglycemic drugs; Z79.82 Long term (current) use of aspirin; Z68.22 Body mass index [BMI] 22.0-22.9, adult
CPT/HCPCS: 36415; 71045; 80053; 80061; 80305; 80320; 81003; 82550; 82553; 82962; 83036; 83605; 83735; 83880; 84100; 84145; 84484; 85025; 87426; 93005; 93970; 94640; 94644; 97162; 97166; 99291; C1893; J1650; J1815; J1885; J1956; J2930; J3475; J7040; G0480

== ENCOUNTER 2021-02-06 16:35 | Emergency (ER) | payer MEDICARE, MEDICAID ==
[~2021-02-06] VITALS: Ht 182.9 cm; Wt 80.0 kg
[~2021-02-06 16:35] MED LIST changes: +HYDR-4001 PO
[2021-02-06] MEDS ORDERED: ONDANSETRON 4MG ODT PO ONE (17:30)
[2021-02-06 17:42] LABS: HEMATOCRIT. 38.7 % (42.0-52.0); HEMOGLOBIN. 12.7 g/dL (14.0-18.0); MEAN CORPUSCULAR VOLUME 88.4 fL (80.0-94.0); MEAN PLATELET VOLUME 7.2 fl (7.4-10.4); PLATELET 294 x1000/uL (130-400); RED BLOOD CELL COUNT 4.38 mill/uL (4.7-6.1); RED CELL DISTRIBUTION WIDTH 17.5 % (11.6-14.6)
[2021-02-06 17:49] LABS: CHLORIDE 109 mEq/L (98-107)
[2021-02-06 18:00] LABS: PLATELET ESTIMATE NORMAL
[2021-02-06 20:38] LABS: CLARITY URINE CLEAR (CLEAR); COLOR URINE YELLOW (YELLOW); KETONES URINE TRACE (NEGATIVE); LEUKOCYTE ESTERASE URINE NEGATIVE (NEGATIVE); NITRITE URINE NEGATIVE (NEGATIVE); OCCULT BLOOD URINE NEGATIVE (NEGATIVE); PROTEIN URINE NEGATIVE (NEGATIVE)
[2021-02-06] MEDS ORDERED: ONDA4TAB5 MT (21:02)
[2021-02-06] MEDS ORDERED: KETOROLAC 15MG/ML VIAL IV ONE (21:15)
[2021-02-06 21:25] VITALS: BP 134/80
== END 2021-02-06 21:34 | disposition home or self-care (01) ==
LOC: ER 16:35
DX: B34.9 Viral infection, unspecified (principal); R11.2 Nausea with vomiting, unspecified; J45.909 Unspecified asthma, uncomplicated; J44.9 Chronic obstructive pulmonary disease, unspecified; E11.9 Type 2 diabetes mellitus without complications; Z88.0 Allergy status to penicillin; Z88.2 Allergy status to sulfonamides; Z79.82 Long term (current) use of aspirin
CPT/HCPCS: 36415; 74018; 80053; 81003; 83690; 85025; 93005; 96374; 99285; J1885; Q0162

== ENCOUNTER 2021-02-17 10:30 | Inpatient (IN) | payer MEDICARE, MEDICAID ==
[~2021-02-17] VITALS: Ht 185.4 cm; Wt 61.2 kg
[~2021-02-17 10:30] MED LIST changes: +ONDA4TAB5 MT
[2021-02-17] MEDS ORDERED: PANTOPRAZOLE SODIUM 40 MG/VIAL IV ONE (11:00)
[2021-02-17] MEDS ORDERED: MORPHINE SULFATE 2 MG/ML CPJ (NOT FOR IM USE) IV ONE (11:45)
[2021-02-17 11:58] LABS: BASOPHILS % 0.7 % (0.0-2.0); EOSINOPHILS % 0.9 % (0.0-5.0); HEMATOCRIT. 34.8 % (42.0-52.0); HEMOGLOBIN. 11.3 g/dL (14.0-18.0); LYMPHOCYTES % 12.4 % (20.0-50.0); MEAN CORPUSCULAR HEMOGLOBIN 29.2 pg (28.0-32.0); MEAN CORPUSCULAR VOLUME 89.8 fL (80.0-94.0); MEAN PLATELET VOLUME 7.4 fl (7.4-10.4); MONOCYTES % 11.2 % (2.0-8.0); NEUTROPHILS % 74.8 % (40.0-76.0); PLATELET 302 x1000/uL (130-400); RED BLOOD CELL COUNT 3.87 mill/uL (4.7-6.1); RED CELL DISTRIBUTION WIDTH 17.7 % (11.6-14.6)
[2021-02-17 12:26] LABS: CHLORIDE 106 mEq/L (98-107)
[2021-02-17] MEDS ORDERED: SODIUM CHLORIDE 0.9% 1000ML BAG (SEPSIS BOLUS) IV NR (16:15)
[2021-02-17] MEDS ORDERED: DEXTROSE 5% WATER 1,000 ML IV ONE (16:15)
[2021-02-17] MEDS ORDERED: PANTOPRAZOLE 80 MG in SODIUM CHLORIDE 0.9% 100 ML IV SCH (17:00)
[2021-02-17] MEDS: PANTOPRAZOLE 80 MG in SODIUM CHLORIDE 0.9% 100 ML IV SCH (17:23)
[2021-02-17] MEDS: INSULIN LISPRO 100 UNITS/ML SUBCUT SCH ×2 (18:20→21:00)
[2021-02-17] MEDS ORDERED: ACETAMINOPHEN 325MG TABLET PO PRN (18:30)
[2021-02-17] MEDS ORDERED: MAGNESIUM/ALUMINUM HYDROXIDE/SIMETHICONE 30ML UDC PO PRN (18:30)
[2021-02-17] MEDS ORDERED: CLONIDINE 0.1MG TABLET PO PRN (18:30)
[2021-02-17] MEDS ORDERED: GUAIFENESIN 200MG/10ML SUGAR FREE UDC PO PRN (18:30)
[2021-02-17] MEDS ORDERED: ONDANSETRON HCL 4MG/2ML INJ IV PRN (18:30)
[2021-02-17] MEDS ORDERED: NITROGLYCERIN 0.4MG TABLET SL SL PRN (18:30)
[2021-02-17] MEDS ORDERED: DOCUSATE SODIUM 100MG CAPSULE PO PRN (18:30)
[2021-02-17] MEDS ORDERED: DEXTROSE 50% WATER 50ML SYRINGE IV PRN (18:30)
[2021-02-17 20:05] LABS: FOLIC ACID (FOLATE) SERUM 18.9 ng/mL (>5.38)
[2021-02-17 21:30] VITALS: BP 141/75
[2021-02-17 21:36] VITALS: BP 141/75
[2021-02-17] MEDS: DEXT 5%/LACTATED RINGERS 1,000 ML IV SCH (22:58)
[2021-02-17] MEDS: ZOLPIDEM TARTRATE 5MG TABLET PO PRN (22:59)
[2021-02-17] MEDS: FAMOTIDINE 20MG TABLET PO SCH (22:59)
[2021-02-17] MEDS: BLOOD SUGAR DIAGNOSTIC STRIP TEST SCH (22:59)
[2021-02-17 23:30] LABS: CREATINE KINASE 78 IU/L (39-308)
[2021-02-17 23:32] LABS: CREATINE KINASE MB FRACTION 2.4 ng/mL (0.5-3.6)
[2021-02-17] MEDS ORDERED: *PATIENT'S OWN MEDICATION STORAGE XX SCH (23:45)
[2021-02-18] VITALS: BP 113/63
[2021-02-18] MEDS: ACETAMINOPHEN 325MG TABLET PO PRN ×4 (03:19→21:30)
[2021-02-18 04:30] VITALS: BP 130/69
[2021-02-18 06:38] LABS: CHLORIDE 109 mEq/L (98-107)
[2021-02-18 06:44] LABS: BASOPHILS % 0.9 % (0.0-2.0); EOSINOPHILS % 2.7 % (0.0-5.0); HEMATOCRIT. 33.4 % (42.0-52.0); HEMOGLOBIN. 11.4 g/dL (14.0-18.0); LYMPHOCYTES % 15.8 % (20.0-50.0); MEAN PLATELET VOLUME 8.1 fl (7.4-10.4); MONOCYTES % 12.1 % (2.0-8.0); NEUTROPHILS % 68.5 % (40.0-76.0); PLATELET 293 x1000/uL (130-400); RED CELL DISTRIBUTION WIDTH 16.9 % (11.6-14.6)
[2021-02-18 06:53] LABS: CREATINE KINASE 75 IU/L (39-308); PHOSPHORUS 2.4 mg/dL (2.5-4.9)
[2021-02-18 06:58] LABS: CREATINE KINASE MB FRACTION 1.9 ng/mL (0.5-3.6)
[2021-02-18] MEDS: INSULIN LISPRO 100 UNITS/ML SUBCUT SCH ×4 (07:50→21:00)
[2021-02-18] MEDS: BLOOD SUGAR DIAGNOSTIC STRIP TEST SCH ×4 (07:53→21:30)
[2021-02-18 08:00] VITALS: BP 125/81
[2021-02-18] MEDS: FAMOTIDINE 20MG TABLET PO SCH ×2 (09:09→21:29)
[2021-02-18] MEDS: TRAMADOL 50MG TABLET PO PRN ×2 (10:14→17:06)
[2021-02-18] MEDS: DEXT 5%/LACTATED RINGERS 1,000 ML IV SCH ×2 (10:15→21:10)
[2021-02-18] MEDS ORDERED: MAGNESIUM 2 G PREMIX 50 ML IV SCH (11:00)
[2021-02-18] MEDS ORDERED: POTASSIUM PHOS,M-BASIC-D-BASIC 15 MMOL in DEXT 5% WATER 250 ML IV SCH (11:00)
[2021-02-18 12:00] VITALS: BP 122/61
[2021-02-18] MEDS ORDERED: INFLUENZA VACCINE 05/PF 0.5 ML SYRINGE IM ONE (12:00)
[2021-02-18] MEDS ORDERED: PNEUMOCOCCAL 23-VAL P-SAC VAC 0.5 ML IM ONE (12:00)
[2021-02-18 16:00] VITALS: BP 124/68
[2021-02-18 20:16] VITALS: BP 114/85
[2021-02-18] MEDS: ZOLPIDEM TARTRATE 5MG TABLET PO PRN (21:29)
[2021-02-18] MEDS: LEVOFLOXACIN 500MG PREMIX 100 ML IV SCH ×2 (21:31→21:40)
[2021-02-18] MEDS: IPRATROPIUM/ALBUTEROL 0.5-3(2.5)MG/3ML NEB NEB PRN (22:29)
[2021-02-18] MEDS: PANTOPRAZOLE 80 MG in SODIUM CHLORIDE 0.9% 100 ML IV SCH (23:37)
[2021-02-19] VITALS: BP 121/71
[2021-02-19] MEDS: TRAMADOL 50MG TABLET PO PRN ×3 (00:01→19:28)
[2021-02-19 04:00] VITALS: BP 119/69
[2021-02-19 06:48] LABS: BASOPHILS % 0.7 % (0.0-2.0); HEMATOCRIT. 36.3 % (42.0-52.0); LYMPHOCYTES % 12.7 % (20.0-50.0); MEAN CORPUSCULAR VOLUME 87.6 fL (80.0-94.0); MEAN PLATELET VOLUME 7.6 fl (7.4-10.4); MONOCYTES % 11.4 % (2.0-8.0); NEUTROPHILS % 71.2 % (40.0-76.0); PLATELET 317 x1000/uL (130-400); RED BLOOD CELL COUNT 4.14 mill/uL (4.7-6.1); RED CELL DISTRIBUTION WIDTH 16.6 % (11.6-14.6)
[2021-02-19 06:57] LABS: CHLORIDE 106 mEq/L (98-107)
[2021-02-19 06:58] LABS: INR 1.1; PROTHROMBIN TIME 11.9 sec (9.6-11.0)
[2021-02-19 07:20] LABS: PHOSPHORUS 3.4 mg/dL (2.5-4.9)
[2021-02-19] MEDS: INSULIN LISPRO 100 UNITS/ML SUBCUT SCH ×4 (07:50→21:00)
[2021-02-19 07:57] VITALS: BP 111/64
[2021-02-19] MEDS: BLOOD SUGAR DIAGNOSTIC STRIP TEST SCH ×4 (08:08→21:00)
[2021-02-19] MEDS: PANTOPRAZOLE 80 MG in SODIUM CHLORIDE 0.9% 100 ML IV SCH ×2 (08:52→18:07)
[2021-02-19] MEDS: FAMOTIDINE 20MG TABLET PO SCH ×2 (08:52→20:57)
[2021-02-19] MEDS: IPRATROPIUM/ALBUTEROL 0.5-3(2.5)MG/3ML NEB NEB PRN (09:13)
[2021-02-19] MEDS: DEXT 5%/LACTATED RINGERS 1,000 ML IV SCH (10:19)
[2021-02-19] MEDS: LEVOFLOXACIN 500MG TABLET PO SCH (10:21)
[2021-02-19 12:00] VITALS: BP 144/69
[2021-02-19] MEDS: ACETAMINOPHEN 325MG TABLET PO PRN (14:17)
[2021-02-19 16:00] VITALS: BP 137/81
[2021-02-19 20:00] VITALS: BP 126/83
[2021-02-19] MEDS: ZOLPIDEM TARTRATE 5MG TABLET PO PRN (20:57)
[2021-02-19] MEDS: LIDOCAINE 5% PATCH TOP SCH (23:57)
[2021-02-20] VITALS: BP 114/74
[2021-02-20] MEDS: DEXT 5%/LACTATED RINGERS 1,000 ML IV SCH ×2 (00:04→13:10)
[2021-02-20 04:00] VITALS: BP 112/63
[2021-02-20] MEDS: PANTOPRAZOLE 80 MG in SODIUM CHLORIDE 0.9% 100 ML IV SCH ×2 (05:08→15:00)
[2021-02-20 06:28] LABS: CHLORIDE 104 mEq/L (98-107); EOSINOPHILS % 4.3 % (0.0-5.0); HEMATOCRIT. 35.3 % (42.0-52.0); HEMOGLOBIN. 11.8 g/dL (14.0-18.0); LYMPHOCYTES % 20.7 % (20.0-50.0); MEAN CORPUSCULAR HEMOGLOBIN 29.3 pg (28.0-32.0); MEAN PLATELET VOLUME 7.7 fl (7.4-10.4); MONOCYTES % 14.4 % (2.0-8.0); NEUTROPHILS % 59.6 % (40.0-76.0); PLATELET 302 x1000/uL (130-400); RED BLOOD CELL COUNT 4.01 mill/uL (4.7-6.1); RED CELL DISTRIBUTION WIDTH 16.8 % (11.6-14.6)
[2021-02-20] MEDS: TRAMADOL 50MG TABLET PO PRN (06:41)
[2021-02-20] MEDS: BLOOD SUGAR DIAGNOSTIC STRIP TEST SCH ×2 (07:36→12:18)
[2021-02-20] MEDS: INSULIN LISPRO 100 UNITS/ML SUBCUT SCH ×2 (07:36→12:18)
[2021-02-20 08:00] VITALS: BP 111/60
[2021-02-20] MEDS: FAMOTIDINE 20MG TABLET PO SCH (08:12)
[2021-02-20] MEDS: LIDOCAINE 5% PATCH TOP SCH (08:13)
[2021-02-20 12:00] VITALS: BP 130/76
[2021-02-20] MEDS: LEVOFLOXACIN 500MG TABLET PO SCH (12:35)
[2021-02-20] MEDS: ACETAMINOPHEN 325MG TABLET PO PRN (12:36)
[2021-02-20 15:04] VITALS: BP 130/76
[2021-02-21 05:08] LABS: CANCER ANTIGEN 125 8.9 U/mL (Not Estab.)
== END 2021-02-20 16:00 | disposition home health service (06) | DRG 378 ==
LOC: ER 10:42 → 6WST 14:45 → ENRESERV 20:26
PROVIDERS: ADMIT Internal Medicine; ATTEND Internal Medicine
DX: K92.2 Gastrointestinal hemorrhage, unspecified (principal); E44.0 Moderate protein-calorie malnutrition; Z68.1 Body mass index [BMI] 19.9 or less, adult; D50.0 Iron deficiency anemia secondary to blood loss (chronic); E11.9 Type 2 diabetes mellitus without complications; E83.42 Hypomagnesemia; J44.9 Chronic obstructive pulmonary disease, unspecified; Z20.822 Contact with and (suspected) exposure to COVID-19; E78.00 Pure hypercholesterolemia, unspecified; E78.5 Hyperlipidemia, unspecified; E83.39 Other disorders of phosphorus metabolism; Z88.0 Allergy status to penicillin; Z88.2 Allergy status to sulfonamides; Z79.891 Long term (current) use of opiate analgesic; Z79.899 Other long term (current) drug therapy; Z79.4 Long term (current) use of insulin
CPT/HCPCS: 36415; 71045; 74176; 80048; 80053; 80061; 80305; 82105; 82270; 82378; 82550; 82553; 82607; 82728; 82746; 82962; 83036; 83540; 83550; 83605; 83735; 83880; 84100; 84484; 85025; 86301; 86304; 86850; 86900; 87426; 90686; 90732; 93005; 93970; 94640; 99285; C9113; J1815; J1956; J2270; J3475; J3490; J7040; J7050; J7060

== ENCOUNTER 2021-03-12 07:07 | Inpatient (IN) | payer MEDICARE, MEDICAID ==
[~2021-03-12] VITALS: Ht 185.4 cm; Wt 64.6 kg
[2021-03-12] MEDS ORDERED: MORPHINE SULFATE 4 MG/ML CPJ (NOT FOR IM USE) IV STA (07:44)
[2021-03-12 08:12] LABS: BASOPHILS % 1.1 % (0.0-2.0); EOSINOPHILS % 11.4 % (0.0-5.0); HEMATOCRIT. 36.9 % (42.0-52.0); HEMOGLOBIN. 11.7 g/dL (14.0-18.0); LYMPHOCYTES % 18.4 % (20.0-50.0); MEAN CORPUSCULAR HEMOGLOBIN 27.3 pg (28.0-32.0); MEAN PLATELET VOLUME 7.4 fl (7.4-10.4); MONOCYTES % 12.9 % (2.0-8.0); NEUTROPHILS % 56.2 % (40.0-76.0); PLATELET 287 x1000/uL (130-400); RED BLOOD CELL COUNT 4.29 mill/uL (4.7-6.1); RED CELL DISTRIBUTION WIDTH 15.7 % (11.6-14.6)
[2021-03-12 08:15] LABS: CHLORIDE 106 mEq/L (98-107)
[2021-03-12] MEDS ORDERED: MORPHINE SULFATE 4 MG/ML CPJ (NOT FOR IM USE) IV ONE (11:00)
[2021-03-12] MEDS ORDERED: DOCUSATE SODIUM 100MG CAPSULE PO PRN (14:15)
[2021-03-12] MEDS ORDERED: GUAIFENESIN 200MG/10ML SUGAR FREE UDC PO PRN (14:15)
[2021-03-12] MEDS ORDERED: FAMOTIDINE(NEO) 1MG/ML SUSP PO SCH (14:15)
[2021-03-12] MEDS ORDERED: CLONIDINE 0.1MG TABLET PO PRN (14:15)
[2021-03-12] MEDS ORDERED: ONDANSETRON HCL 4MG/2ML INJ IV PRN (14:15)
[2021-03-12] MEDS ORDERED: LORAZEPAM 2MG/ML CPJ IV PRN (14:15)
[2021-03-12] MEDS ORDERED: ACETAMINOPHEN 325MG TABLET PO PRN (14:15)
[2021-03-12] MEDS ORDERED: IPRATROPIUM/ALBUTEROL 0.5-3(2.5)MG/3ML NEB HHN PRN (14:15)
[2021-03-12] MEDS ORDERED: MAGNESIUM/ALUMINUM HYDROXIDE/SIMETHICONE 30ML UDC PO PRN (14:15)
[2021-03-12] MEDS ORDERED: NALOXONE HCL 0.4MG/ML VIAL IV PRN (14:45)
[2021-03-12] MEDS: LEVOFLOXACIN 500MG PREMIX 100 ML IV SCH (14:54)
[2021-03-12] MEDS: ENOXAPARIN 40MG/0.4ML SYR SUBCUT SCH (15:00)
[2021-03-12] MEDS: AMLODIPINE 10MG TABLET PO SCH (15:07)
[2021-03-12] MEDS: FAMOTIDINE 20MG TABLET PO SCH ×2 (15:07→20:54)
[2021-03-12] MEDS: TAMSULOSIN HCL 0.4MG SR CAPSULE PO SCH (15:19)
[2021-03-12] MEDS: HYDROCODONE/APAP 7.5/325MG 1 TAB TABLET PO PRN ×2 (16:50→20:55)
[2021-03-12] MEDS: METHYLPREDNISOLONE SOD SUCC 125 MG/2 ML VIAL IV SCH ×2 (18:48→23:11)
[2021-03-12 20:40] VITALS: BP 114/64
[2021-03-12] MEDS: ATORVASTATIN CALCIUM 40MG TABLET PO SCH (20:54)
[2021-03-12] MEDS ORDERED: BLOOD SUGAR DIAGNOSTIC STRIP TEST SCH (22:00)
[2021-03-12] MEDS: ZOLPIDEM TARTRATE 5MG TABLET PO PRN (23:11)
[2021-03-12 23:29] VITALS: BP 129/87
[2021-03-13 00:26] LABS: CREATINE KINASE 91 IU/L (39-308)
[2021-03-13] MEDS: IPRATROPIUM/ALBUTEROL 0.5-3(2.5)MG/3ML NEB HHN SCH ×4 (00:32→20:45)
[2021-03-13] MEDS ORDERED: DEXTROSE 50% WATER 50ML SYRINGE IV PRN (01:15)
[2021-03-13] MEDS: HYDROCODONE/APAP 7.5/325MG 1 TAB TABLET PO PRN ×4 (01:29→16:47)
[2021-03-13 04:00] VITALS: BP 133/75
[2021-03-13] MEDS: METHYLPREDNISOLONE SOD SUCC 125 MG/2 ML VIAL IV SCH ×3 (05:33→18:32)
[2021-03-13] MEDS: BLOOD SUGAR DIAGNOSTIC STRIP TEST SCH ×4 (05:33→21:25)
[2021-03-13] MEDS: INSULIN LISPRO 100 UNITS/ML SUBCUT SCH ×4 (05:52→22:25)
[2021-03-13 06:17] LABS: HEMATOCRIT. 36.9 % (42.0-52.0); HEMOGLOBIN. 11.9 g/dL (14.0-18.0); MEAN CORPUSCULAR HEMOGLOBIN 27.5 pg (28.0-32.0); MEAN CORPUSCULAR VOLUME 85.3 fL (80.0-94.0); MEAN PLATELET VOLUME 7.6 fl (7.4-10.4); PLATELET 329 x1000/uL (130-400); RED BLOOD CELL COUNT 4.32 mill/uL (4.7-6.1); RED CELL DISTRIBUTION WIDTH 15.3 % (11.6-14.6)
[2021-03-13 06:28] LABS: CHLORIDE 100 mEq/L (98-107)
[2021-03-13 06:41] LABS: LDL CHOLESTEROL 55 mg/dL (5-100)
[2021-03-13 06:42] LABS: CREATINE KINASE 89 IU/L (39-308)
[2021-03-13 06:43] LABS: HDL CHOLESTEROL 72 mg/dL (40-59)
[2021-03-13] MEDS ORDERED: SODIUM POLYSTYRENE SULFONATE 15 G/60 ML BOT PO SCH (07:00)
[2021-03-13 08:00] VITALS: BP 118/65
[2021-03-13] MEDS: FAMOTIDINE 20MG TABLET PO SCH ×2 (08:56→21:43)
[2021-03-13] MEDS: ASPIRIN 81MG EC TABLET PO SCH (08:56)
[2021-03-13] MEDS: TAMSULOSIN HCL 0.4MG SR CAPSULE PO SCH (08:57)
[2021-03-13] MEDS: AMLODIPINE 10MG TABLET PO SCH (08:57)
[2021-03-13 10:16] LABS: BG BASE EXCESS 2.5 mmol/L (-2.0-2.0); BG CARBOXYHEMOGLOBIN 0.1 % (0.5-1.5); BG DEOXYHEMOGLOBIN 2.8 % (0.0-5.0); BG FRACTION INSPIRED OXYGEN 32; BG HCO3 ACT 27.8 mmol/L (22.0-26.0); BG METHEMOGLOBIN 0.2 % (0.0-1.5); BG OXYGEN SATURATION 97.2 % (92.0-98.5); BG OXYHEMOGLOBIN 96.9 % (94.0-97.0); BG PCO2 45.9 mmHg (35.0-45.0); BG PO2 93.1 mmHg (75.0-100.0); BG SAMPLE SITE RIGHT BRACHIAL; BG TOTAL HEMOGLOBIN 12.5 g/dL (12.0-18.0); BG VENT MODE NASAL CANNULA
[2021-03-13] MEDS: LIDOCAINE 5% PATCH TOP SCH (10:22)
[2021-03-13 12:00] VITALS: BP 115/79
[2021-03-13 13:53] LABS: PLATELET ESTIMATE NORMAL
[2021-03-13] MEDS: LEVOFLOXACIN 500MG PREMIX 100 ML IV SCH (14:41)
[2021-03-13] MEDS: ENOXAPARIN 40MG/0.4ML SYR SUBCUT SCH (15:58)
[2021-03-13 16:00] VITALS: BP 119/74
[2021-03-13] MEDS ORDERED: POTASSIUM CHLORIDE 20MEQ TABLET SR PO NR (17:57)
[2021-03-13] MEDS ORDERED: HYDROMORPHONE HCL/PF 2MG/ML CPJ IV PRN (18:00)
[2021-03-13 20:00] VITALS: BP 133/82
[2021-03-13] MEDS: ATORVASTATIN CALCIUM 40MG TABLET PO SCH (21:42)
[2021-03-13] MEDS: ZOLPIDEM TARTRATE 5MG TABLET PO PRN (21:43)
[2021-03-14] VITALS: BP 119/54
[2021-03-14] MEDS: METHYLPREDNISOLONE SOD SUCC 125 MG/2 ML VIAL IV SCH ×2 (00:40→05:44)
[2021-03-14] MEDS: HYDROCODONE/APAP 7.5/325MG 1 TAB TABLET PO PRN ×3 (00:41→17:38)
[2021-03-14] MEDS: IPRATROPIUM/ALBUTEROL 0.5-3(2.5)MG/3ML NEB HHN SCH ×4 (01:22→22:21)
[2021-03-14 04:00] VITALS: BP 121/62
[2021-03-14] MEDS: BLOOD SUGAR DIAGNOSTIC STRIP TEST SCH ×4 (06:33→20:21)
[2021-03-14 08:00] VITALS: BP 128/72
[2021-03-14] MEDS: LIDOCAINE 5% PATCH TOP SCH (08:48)
[2021-03-14] MEDS: FAMOTIDINE 20MG TABLET PO SCH ×2 (08:49→20:19)
[2021-03-14] MEDS: AMLODIPINE 10MG TABLET PO SCH (08:49)
[2021-03-14] MEDS: TAMSULOSIN HCL 0.4MG SR CAPSULE PO SCH (08:49)
[2021-03-14] MEDS: INSULIN LISPRO 100 UNITS/ML SUBCUT SCH ×4 (08:50→20:20)
[2021-03-14] MEDS: ASPIRIN 81MG EC TABLET PO SCH (08:51)
[2021-03-14 12:00] VITALS: BP 119/62
[2021-03-14] MEDS ORDERED: LEVOFLOXACIN 500MG PREMIX 100 ML IV SCH (14:00)
[2021-03-14] MEDS: METHYLPREDNISOLONE SOD SUCC 40 MG/ML VIAL IV SCH ×2 (14:59→20:56)
[2021-03-14] MEDS: ENOXAPARIN 40MG/0.4ML SYR SUBCUT SCH (15:00)
[2021-03-14 16:00] VITALS: BP 121/64
[2021-03-14 20:00] VITALS: BP 119/79
[2021-03-14] MEDS: ATORVASTATIN CALCIUM 40MG TABLET PO SCH (20:20)
[2021-03-14] MEDS: ZOLPIDEM TARTRATE 5MG TABLET PO PRN ×2 (20:56→21:05)
[2021-03-15] VITALS: BP 112/62
[2021-03-15] MEDS: HYDROCODONE/APAP 7.5/325MG 1 TAB TABLET PO PRN ×2 (01:01→10:06)
[2021-03-15] MEDS: IPRATROPIUM/ALBUTEROL 0.5-3(2.5)MG/3ML NEB HHN SCH ×3 (02:16→13:15)
[2021-03-15 04:00] VITALS: BP 112/62
[2021-03-15] MEDS: METHYLPREDNISOLONE SOD SUCC 40 MG/ML VIAL IV SCH (06:13)
[2021-03-15] MEDS: BLOOD SUGAR DIAGNOSTIC STRIP TEST SCH ×2 (06:15→12:44)
[2021-03-15] MEDS: INSULIN LISPRO 100 UNITS/ML SUBCUT SCH ×2 (06:15→12:49)
[2021-03-15 08:00] VITALS: BP 106/55
[2021-03-15] MEDS: AMLODIPINE 10MG TABLET PO SCH (09:00)
[2021-03-15] MEDS: ASPIRIN 81MG EC TABLET PO SCH (09:24)
[2021-03-15] MEDS: TAMSULOSIN HCL 0.4MG SR CAPSULE PO SCH (09:24)
[2021-03-15] MEDS: FAMOTIDINE 20MG TABLET PO SCH (09:26)
[2021-03-15] MEDS: LIDOCAINE 5% PATCH TOP SCH (09:27)
[2021-03-15] MEDS ORDERED: LEVOFLOXACIN 500MG TABLET PO SCH (11:00)
[2021-03-15 11:32] VITALS: BP 118/57
[2021-03-15 12:00] VITALS: BP 118/57
== END 2021-03-15 13:15 | disposition home health service (06) | DRG 192 ==
LOC: ER 07:07 → EDBEDREQ 10:55 → EDBEDREQTM 10:55 → ENRESERV 14:16 → MICUSO 14:34 → 8WST 20:34
PROVIDERS: ADMIT Hospitalist; ATTEND Hospitalist
DX: J44.1 Chronic obstructive pulmonary disease with (acute) exacerbation (principal); E78.5 Hyperlipidemia, unspecified; I10 Essential (primary) hypertension; R53.1 Weakness; N40.0 Benign prostatic hyperplasia without lower urinary tract symptoms; E11.40 Type 2 diabetes mellitus with diabetic neuropathy, unspecified; R26.89 Other abnormalities of gait and mobility; Z82.49 Family history of ischemic heart disease and other diseases of the circulatory system; Z99.81 Dependence on supplemental oxygen; Z88.0 Allergy status to penicillin; Z88.2 Allergy status to sulfonamides; Z79.82 Long term (current) use of aspirin; Z79.84 Long term (current) use of oral hypoglycemic drugs; Z79.899 Other long term (current) drug therapy; Z82.5 Family history of asthma and other chronic lower respiratory diseases
CPT/HCPCS: 36415; 36600; 71045; 71275; 80053; 80061; 82375; 82550; 82805; 82962; 83036; 83880; 84132; 84484; 85025; 93005; 93970; 99285; J1650; J1815; J1956; J2060; J2270; J2920; J2930

== ENCOUNTER 2021-04-18 08:23 | Inpatient (IN) | payer MEDICARE, MEDICAID ==
[~2021-04-18] VITALS: Ht 185.4 cm; Wt 61.7 kg
[~2021-04-18 08:23] MED LIST changes: -ALBU6.7H15 INH; -MEGE40TA5 PO; -METF-414 PO
[2021-04-18 09:04] LABS: HEMATOCRIT. 36.3 % (42.0-52.0); HEMOGLOBIN. 11.8 g/dL (14.0-18.0); MEAN CORPUSCULAR HEMOGLOBIN 25.7 pg (28.0-32.0); MEAN CORPUSCULAR VOLUME 79.4 fL (80.0-94.0); MEAN PLATELET VOLUME 7.2 fl (7.4-10.4); PLATELET 342 x1000/uL (130-400); RED BLOOD CELL COUNT 4.57 mill/uL (4.7-6.1); RED CELL DISTRIBUTION WIDTH 15.4 % (11.6-14.6)
[2021-04-18 09:31] LABS: CHLORIDE 98 mEq/L (98-107)
[2021-04-18 09:48] LABS: PLATELET ESTIMATE NORMAL
[2021-04-18] MEDS ORDERED: ALBUTEROL 6.7GM HFA INHALER ORI PRN (14:15)
[2021-04-18] MEDS ORDERED: NITROGLYCERIN 0.4MG TABLET SL SL PRN (14:15)
[2021-04-18] MEDS ORDERED: ONDANSETRON HCL 4MG/2ML INJ IV PRN (14:15)
[2021-04-18] MEDS ORDERED: MAGNESIUM/ALUMINUM HYDROXIDE/SIMETHICONE 30ML UDC PO PRN (14:15)
[2021-04-18] MEDS ORDERED: CLONIDINE 0.1MG TABLET PO PRN (14:15)
[2021-04-18] MEDS ORDERED: KETOROLAC 30MG/ML VIAL IV PRN (14:15)
[2021-04-18] MEDS ORDERED: GUAIFENESIN 200MG/10ML SUGAR FREE UDC PO PRN (14:15)
[2021-04-18] MEDS ORDERED: DOCUSATE SODIUM 100MG CAPSULE PO PRN (14:15)
[2021-04-18] MEDS ORDERED: ACETAMINOPHEN 325MG TABLET PO PRN (14:15)
[2021-04-18] MEDS ORDERED: AZITHROMYCIN 500MG/250ML 250 ML IV NR (14:30)
[2021-04-18] MEDS: METHYLPREDNISOLONE SOD SUCC 125 MG/2 ML VIAL IV SCH (14:30)
[2021-04-18] MEDS: ENOXAPARIN 40MG/0.4ML SYR SUBCUT SCH (15:00)
[2021-04-18] MEDS ORDERED: DEXTROSE 50% WATER 50ML SYRINGE IV PRN (17:45)
[2021-04-18] MEDS: DILTIAZEM HCL 60MG TABLET PO SCH (18:00)
[2021-04-19 02:02] VITALS: BP 133/75
[2021-04-19 02:35] VITALS: BP 115/75
[2021-04-19 04:00] VITALS: BP 118/72
[2021-04-19] MEDS: ALBUTEROL 6.7GM HFA INHALER ORI SCH ×4 (04:33→21:03)
[2021-04-19] MEDS: BLOOD SUGAR DIAGNOSTIC STRIP TEST SCH ×4 (05:53→20:42)
[2021-04-19] MEDS: METHYLPREDNISOLONE SOD SUCC 125 MG/2 ML VIAL IV SCH ×3 (05:54→21:02)
[2021-04-19] MEDS: DILTIAZEM HCL 60MG TABLET PO SCH ×3 (05:55→17:15)
[2021-04-19] MEDS: INSULIN LISPRO 100 UNITS/ML SUBCUT SCH ×5 (06:06→20:42)
[2021-04-19 07:52] LABS: PHENCYCLIDINE URINE SCREEN NEGATIVE (NEGATIVE)
[2021-04-19 07:53] LABS: *AMPHETAMINES SCREEN URINE NEGATIVE (NEGATIVE); *BARBITURATES SCREEN URINE NEGATIVE (NEGATIVE); *BENZODIAZEPINES SCREEN URINE NEGATIVE (NEGATIVE); *COCAINE SCREEN URINE NEGATIVE (NEGATIVE); CANNABINOID URINE SCREEN NEGATIVE (NEGATIVE); METHADONE URINE SCREEN NEGATIVE (NEGATIVE)
[2021-04-19 07:54] LABS: OPIATES URINE SCREEN PRESUMTIVE POSITIVE (NEGATIVE)
[2021-04-19 09:28] LABS: BASOPHILS % 0.2 % (0.0-2.0); HEMATOCRIT. 37.3 % (42.0-52.0); HEMOGLOBIN. 11.8 g/dL (14.0-18.0); MEAN CORPUSCULAR VOLUME 79.4 fL (80.0-94.0); MEAN PLATELET VOLUME 7.3 fl (7.4-10.4); MONOCYTES % 3.7 % (2.0-8.0); NEUTROPHILS % 83.1 % (40.0-76.0); PLATELET 364 x1000/uL (130-400); RED CELL DISTRIBUTION WIDTH 15.5 % (11.6-14.6)
[2021-04-19] MEDS: CHOLECALCIFEROL (D3) 1000 UNIT TABLET PO SCH (09:41)
[2021-04-19] MEDS: FAMOTIDINE 20MG TABLET PO SCH ×2 (09:42→09:43)
[2021-04-19] MEDS: ZINC SULFATE 220 MG ( 50 ) CAPSULE PO SCH (09:42)
[2021-04-19] MEDS: ASCORBIC ACID 500 MG TABLET PO SCH ×2 (09:42→09:43)
[2021-04-19 09:48] LABS: CHLORIDE 100 mEq/L (98-107)
[2021-04-19 09:56] LABS: PHOSPHORUS 4.4 mg/dL (2.5-4.9)
[2021-04-19 09:58] LABS: CREATINE KINASE 74 IU/L (39-308)
[2021-04-19 10:01] LABS: CREATINE KINASE MB FRACTION 1.4 ng/mL (0.5-3.6)
[2021-04-19] MEDS ORDERED: THROAT LOZENGES-BENZOCAINE/MENTH/CETYLPYRD CL LOZENGES MM PRN (10:15)
[2021-04-19] MEDS: KETOROLAC 15MG/ML VIAL IV PRN ×2 (15:22→22:21)
[2021-04-19 16:00] VITALS: BP 109/53
[2021-04-19] MEDS: ENOXAPARIN 40MG/0.4ML SYR SUBCUT SCH (17:20)
[2021-04-19] MEDS: AZITHROMYCIN 500 MG in DEXT 5% WATER 250 ML IV SCH (17:21)
[2021-04-19 20:00] VITALS: BP 111/62
[2021-04-19] MEDS: ZOLPIDEM TARTRATE 5MG TABLET PO PRN (20:42)
[2021-04-19] MEDS: ACETAMINOPHEN 325MG TABLET PO PRN (21:09)
[2021-04-19 21:29] VITALS: BP 111/62
[2021-04-19 21:38] LABS: CREATINE KINASE 62 IU/L (39-308)
[2021-04-19 21:39] LABS: CREATINE KINASE MB FRACTION 1.5 ng/mL (0.5-3.6)
[2021-04-20] VITALS: BP 119/68
[2021-04-20] MEDS: DILTIAZEM HCL 60MG TABLET PO SCH ×5 (00:45→23:54)
[2021-04-20] MEDS: ALBUTEROL 6.7GM HFA INHALER ORI SCH ×4 (03:55→20:22)
[2021-04-20 04:00] VITALS: BP 116/53
[2021-04-20] MEDS: INSULIN LISPRO 100 UNITS/ML SUBCUT SCH ×4 (06:25→20:16)
[2021-04-20] MEDS: BLOOD SUGAR DIAGNOSTIC STRIP TEST SCH ×4 (06:25→20:16)
[2021-04-20] MEDS: METHYLPREDNISOLONE SOD SUCC 125 MG/2 ML VIAL IV SCH ×3 (06:26→21:07)
[2021-04-20 08:00] VITALS: BP 114/61
[2021-04-20] MEDS: CHOLECALCIFEROL (D3) 1000 UNIT TABLET PO SCH (08:08)
[2021-04-20] MEDS: ZINC SULFATE 220 MG ( 50 ) CAPSULE PO SCH (08:08)
[2021-04-20] MEDS: ASCORBIC ACID 500 MG TABLET PO SCH ×2 (08:09→20:15)
[2021-04-20] MEDS: FAMOTIDINE 20MG TABLET PO SCH ×2 (08:09→20:15)
[2021-04-20] MEDS: KETOROLAC 15MG/ML VIAL IV PRN (09:32)
[2021-04-20 12:00] VITALS: BP 105/63
[2021-04-20] MEDS: AZITHROMYCIN 500 MG in DEXT 5% WATER 250 ML IV SCH (14:08)
[2021-04-20] MEDS: ENOXAPARIN 40MG/0.4ML SYR SUBCUT SCH (14:08)
[2021-04-20 15:57] VITALS: BP_SYST 116; BP_SYST 134; BP_DIAS 61; BP_DIAS 78
[2021-04-20 20:00] VITALS: BP 117/64
[2021-04-20] MEDS: ZOLPIDEM TARTRATE 5MG TABLET PO PRN (21:07)
[2021-04-21] VITALS: BP 105/57
[2021-04-21] MEDS: ALBUTEROL 6.7GM HFA INHALER ORI SCH ×4 (03:25→20:00)
[2021-04-21 04:00] VITALS: BP 114/58
[2021-04-21] MEDS: DILTIAZEM HCL 60MG TABLET PO SCH ×3 (05:04→17:45)
[2021-04-21] MEDS: METHYLPREDNISOLONE SOD SUCC 125 MG/2 ML VIAL IV SCH ×3 (05:09→21:21)
[2021-04-21] MEDS: INSULIN LISPRO 100 UNITS/ML SUBCUT SCH ×4 (06:10→20:04)
[2021-04-21] MEDS: BLOOD SUGAR DIAGNOSTIC STRIP TEST SCH ×4 (06:10→20:04)
[2021-04-21 08:00] VITALS: BP 134/65
[2021-04-21] MEDS: FAMOTIDINE 20MG TABLET PO SCH ×2 (08:48→20:04)
[2021-04-21] MEDS: ZINC SULFATE 220 MG ( 50 ) CAPSULE PO SCH (08:48)
[2021-04-21] MEDS: ASCORBIC ACID 500 MG TABLET PO SCH ×2 (08:48→20:04)
[2021-04-21] MEDS: ACETAMINOPHEN 325MG TABLET PO PRN (08:48)
[2021-04-21] MEDS: CHOLECALCIFEROL (D3) 1000 UNIT TABLET PO SCH (08:48)
[2021-04-21] MEDS: KETOROLAC 15MG/ML VIAL IV PRN ×2 (11:36→17:45)
[2021-04-21 12:00] VITALS: BP 117/73
[2021-04-21] MEDS: ENOXAPARIN 40MG/0.4ML SYR SUBCUT SCH (14:48)
[2021-04-21] MEDS ORDERED: AZITHROMYCIN 500 MG in DEXT 5% WATER 250 ML IV SCH (15:00)
[2021-04-21 16:00] VITALS: BP 114/60
[2021-04-21] MEDS: ZOLPIDEM TARTRATE 5MG TABLET PO PRN (19:31)
[2021-04-21 20:00] VITALS: BP 142/83
[2021-04-22] VITALS: BP 111/51
[2021-04-22] MEDS: ALBUTEROL 6.7GM HFA INHALER ORI SCH ×3 (02:19→14:31)
[2021-04-22 04:00] VITALS: BP 109/68
[2021-04-22] MEDS: METHYLPREDNISOLONE SOD SUCC 125 MG/2 ML VIAL IV SCH ×3 (05:14→21:35)
[2021-04-22] MEDS: DILTIAZEM HCL 60MG TABLET PO SCH ×4 (05:15→17:40)
[2021-04-22] MEDS: BLOOD SUGAR DIAGNOSTIC STRIP TEST SCH ×4 (06:12→21:00)
[2021-04-22] MEDS: INSULIN LISPRO 100 UNITS/ML SUBCUT SCH ×4 (06:13→21:35)
[2021-04-22 08:00] VITALS: BP 124/67
[2021-04-22] MEDS: CHOLECALCIFEROL (D3) 1000 UNIT TABLET PO SCH (09:40)
[2021-04-22] MEDS: ASCORBIC ACID 500 MG TABLET PO SCH ×2 (09:40→20:12)
[2021-04-22] MEDS: FAMOTIDINE 20MG TABLET PO SCH ×2 (09:40→20:12)
[2021-04-22] MEDS: ZINC SULFATE 220 MG ( 50 ) CAPSULE PO SCH (09:40)
[2021-04-22 12:00] VITALS: BP 142/70
[2021-04-22] MEDS: ACETAMINOPHEN 325MG TABLET PO PRN (12:41)
[2021-04-22] MEDS: ENOXAPARIN 40MG/0.4ML SYR SUBCUT SCH (14:27)
[2021-04-22] MEDS: KETOROLAC 15MG/ML VIAL IV PRN (14:28)
[2021-04-22] MEDS ORDERED: AZITHROMYCIN 500 MG TABLET PO SCH (15:00)
[2021-04-22 16:00] VITALS: BP 120/72
[2021-04-22 20:00] VITALS: BP 113/61
[2021-04-22] MEDS: ZOLPIDEM TARTRATE 5MG TABLET PO PRN (20:12)
[2021-04-23] VITALS: BP 122/62
[2021-04-23] MEDS: DILTIAZEM HCL 60MG TABLET PO SCH ×4 (00:57→17:58)
[2021-04-23] MEDS: ALBUTEROL 6.7GM HFA INHALER ORI SCH ×4 (00:57→16:08)
[2021-04-23] MEDS: KETOROLAC 15MG/ML VIAL IV PRN ×2 (01:27→09:19)
[2021-04-23 04:00] VITALS: BP 116/71
[2021-04-23] MEDS: METHYLPREDNISOLONE SOD SUCC 125 MG/2 ML VIAL IV SCH ×3 (05:36→21:21)
[2021-04-23] MEDS: ACETAMINOPHEN 325MG TABLET PO PRN (06:29)
[2021-04-23] MEDS: BLOOD SUGAR DIAGNOSTIC STRIP TEST SCH ×4 (06:29→20:47)
[2021-04-23] MEDS: INSULIN LISPRO 100 UNITS/ML SUBCUT SCH ×4 (06:29→20:47)
[2021-04-23 08:00] VITALS: BP 135/77
[2021-04-23] MEDS: ASCORBIC ACID 500 MG TABLET PO SCH ×2 (09:20→20:46)
[2021-04-23] MEDS: ZINC SULFATE 220 MG ( 50 ) CAPSULE PO SCH (09:20)
[2021-04-23] MEDS: CHOLECALCIFEROL (D3) 1000 UNIT TABLET PO SCH (09:20)
[2021-04-23] MEDS: FAMOTIDINE 20MG TABLET PO SCH ×2 (09:20→20:47)
[2021-04-23 12:00] VITALS: BP 158/74
[2021-04-23] MEDS: ENOXAPARIN 40MG/0.4ML SYR SUBCUT SCH (15:57)
[2021-04-23 16:00] VITALS: BP 142/76
[2021-04-23 20:00] VITALS: BP 119/80
[2021-04-24] VITALS: BP 138/55
[2021-04-24] MEDS: DILTIAZEM HCL 60MG TABLET PO SCH ×3 (01:18→12:50)
[2021-04-24 04:00] VITALS: BP 131/72
[2021-04-24] MEDS: METHYLPREDNISOLONE SOD SUCC 125 MG/2 ML VIAL IV SCH ×2 (04:43→15:15)
[2021-04-24] MEDS: BLOOD SUGAR DIAGNOSTIC STRIP TEST SCH ×2 (05:55→11:33)
[2021-04-24] MEDS: INSULIN LISPRO 100 UNITS/ML SUBCUT SCH ×2 (06:28→12:51)
[2021-04-24 08:00] VITALS: BP 141/79
[2021-04-24] MEDS: ASCORBIC ACID 500 MG TABLET PO SCH (09:00)
[2021-04-24] MEDS: ALBUTEROL 6.7GM HFA INHALER ORI SCH ×2 (09:00→15:00)
[2021-04-24] MEDS: FAMOTIDINE 20MG TABLET PO SCH (09:08)
[2021-04-24] MEDS: ZINC SULFATE 220 MG ( 50 ) CAPSULE PO SCH (09:08)
[2021-04-24] MEDS: CHOLECALCIFEROL (D3) 1000 UNIT TABLET PO SCH (09:08)
[2021-04-24] MEDS: ACETAMINOPHEN 325MG TABLET PO PRN (09:20)
[2021-04-24 10:39] VITALS: BP 141/79
[2021-04-24 12:00] VITALS: BP 140/60
[2021-04-24] MEDS: ENOXAPARIN 40MG/0.4ML SYR SUBCUT SCH (15:15)
== END 2021-04-24 14:30 | disposition home health service (06) | DRG 177 ==
LOC: ER 08:23 → 7EST 12:30
PROVIDERS: ADMIT Internal Medicine; ATTEND Internal Medicine
DX: U07.1 COVID-19 (principal); J96.01 Acute respiratory failure with hypoxia; E87.1 Hypo-osmolality and hyponatremia; J44.1 Chronic obstructive pulmonary disease with (acute) exacerbation; D64.9 Anemia, unspecified; E11.9 Type 2 diabetes mellitus without complications; I11.0 Hypertensive heart disease with heart failure; I50.9 Heart failure, unspecified; N40.0 Benign prostatic hyperplasia without lower urinary tract symptoms; Z79.4 Long term (current) use of insulin; Z82.5 Family history of asthma and other chronic lower respiratory diseases
CPT/HCPCS: 36415; 71045; 80053; 80305; 80320; 82550; 82553; 82962; 83735; 83880; 84100; 84484; 85025; 87426; 93005; 93970; 99285; C1893; J0456; J1650; J1815; J1885; J2930; J7040; J7060; G0480

== ENCOUNTER 2022-03-04 13:11 | Emergency (ER) | payer MEDICARE, MEDICAID ==
[~2022-03-04] VITALS: Ht 185.4 cm; Wt 70.0 kg
[2022-03-04] MEDS ORDERED: LIDOCAINE 5% PATCH TOP SCH (14:00)
[2022-03-04] MEDS ORDERED: ACETAMINOPHEN 325MG TABLET PO ONE (14:00)
[2022-03-04] MEDS ORDERED: BACL-141 MT (17:33)
[2022-03-04] MEDS ORDERED: ACET-2708 MT (17:33)
[2022-03-04] MEDS ORDERED: LIDO700A15 TP (17:33)
[2022-03-04 17:44] VITALS: BP 136/73
== END 2022-03-04 17:45 | disposition home or self-care (01) ==
LOC: ER 13:11
DX: M25.512 Pain in left shoulder (principal); S09.90XA Unspecified injury of head, initial encounter; V49.49XA Driver injured in collision with other motor vehicles in traffic accident, initial encounter; Y93.89 Activity, other specified; Y92.89 Other specified places as the place of occurrence of the external cause; Y99.8 Other external cause status; J44.9 Chronic obstructive pulmonary disease, unspecified; E11.9 Type 2 diabetes mellitus without complications; I10 Essential (primary) hypertension; Z79.899 Other long term (current) drug therapy
CPT/HCPCS: 73030; 99284

== ENCOUNTER 2022-04-04 13:32 | Emergency (ER) | payer MEDICARE, MEDICAID ==
[~2022-04-04] VITALS: Ht 185.4 cm; Wt 60.0 kg
[~2022-04-04 13:32] MED LIST changes: +ACET-2708 MT; +BACL-141 MT; +LIDO700A15 TP
[2022-04-04] MEDS ORDERED: IBUPROFEN 600MG TABLET PO STA (15:47)
[2022-04-04 15:56] VITALS: BP 139/79
[2022-04-04] MEDS ORDERED: BACITRACIN ZINC OINT UDPKT TOP ONE ×2 (16:00)
[2022-04-04] MEDS ORDERED: NAPR-681 PO (16:12)
[2022-04-04] MEDS ORDERED: BO1 TP (16:12)
== END 2022-04-04 16:24 | disposition home or self-care (01) ==
LOC: ER 13:43
DX: S00.03XA Contusion of scalp, initial encounter (principal); S80.02XA Contusion of left knee, initial encounter; S00.81XA Abrasion of other part of head, initial encounter; E11.9 Type 2 diabetes mellitus without complications; Z88.2 Allergy status to sulfonamides; Z79.899 Other long term (current) drug therapy; W18.30XA Fall on same level, unspecified, initial encounter; Y93.89 Activity, other specified; Y92.89 Other specified places as the place of occurrence of the external cause; Y99.8 Other external cause status
CPT/HCPCS: 70486; 72100; 73562; 99284

== ENCOUNTER 2024-04-29 18:30 | Emergency (ER) | payer MEDICARE, MEDICAID ==
[~2024-04-29] VITALS: Ht 182.9 cm; Wt 70.0 kg
[~2024-04-29 18:30] MED LIST changes: +BO1 TP; +NAPR-681 PO
[2024-04-29 18:32] VITALS: O2SAT 100
[2024-04-29 20:12] VITALS: TEMP 36.94740
[2024-04-29] MEDS: METHYLPREDNISOLONE SOD SUCC 125MG/2ML (ACT-O-VIAL) IV ONE (20:44)
[2024-04-29 21:47] LABS: BASOPHILS % 0.8 % (0.0-2.0); EOSINOPHILS % 2.9 % (0.0-5.0); HEMATOCRIT. 42.8 % (42.0-52.0); HEMOGLOBIN. 14.4 g/dL (14.0-18.0); LYMPHOCYTES % 31.3 % (20.0-50.0); MEAN CORPUSCULAR HEMOGLOBIN 31.9 pg (28.0-32.0); MEAN CORPUSCULAR HGB CONC 33.7 g/dL (31.0-37.0); MEAN CORPUSCULAR VOLUME 94.6 fL (80.0-94.0); MEAN PLATELET VOLUME 7.7 fl (7.4-10.4); MONOCYTES % 7.8 % (2.0-8.0); NEUTROPHILS % 57.2 % (40.0-76.0); PLATELET 213 x1000/uL (130-400); RED BLOOD CELL COUNT 4.53 mill/uL (4.7-6.1); RED CELL DISTRIBUTION WIDTH 14.5 % (11.6-14.6)
[2024-04-29 21:54] LABS: PROTHROMBIN TIME 11.1 sec (9.6-11.0)
[2024-04-29 21:57] LABS: CHLORIDE 104 mEq/L (98-107); POTASSIUM 4.5 mEq/L (3.5-5.1); SODIUM 143 mEq/L (136-145)
[2024-04-29 21:58] LABS: CALCIUM 9.7 mg/dL (8.7-10.4); CARBON DIOXIDE 33 mEq/L (21-32)
[2024-04-29 22:03] LABS: CREATININE 0.8 mg/dL (0.6-1.3); GLUCOSE 150 mg/dL (70-105); UREA NITROGEN BLOOD 9 mg/dL (9-23)
[2024-04-29 22:04] LABS: TROPONIN I HIGH SENSITIVITY < 4 ng/L (3.0-53)
[2024-04-29] MEDS ORDERED: AZIT500T2 MT (22:04)
[2024-04-29] MEDS ORDERED: BUDE6HFA INH (22:04)
[2024-04-29] MEDS ORDERED: P50 MT (22:04)
[2024-04-29] MEDS ORDERED: ALBU90AE INH (22:04)
[2024-04-29 23:50] VITALS: BP 131/79; PULSE 84; RESP 15; O2SAT 95
== END 2024-04-29 23:59 | disposition home or self-care (01) ==
LOC: ER 18:30
DX: J44.1 Chronic obstructive pulmonary disease with (acute) exacerbation (principal); Z91.148 Patient's other noncompliance with medication regimen for other reason; E11.9 Type 2 diabetes mellitus without complications; I10 Essential (primary) hypertension; Z88.0 Allergy status to penicillin; Z88.2 Allergy status to sulfonamides; Z79.899 Other long term (current) drug therapy; Z79.82 Long term (current) use of aspirin; Z79.52 Long term (current) use of systemic steroids; Z79.51 Long term (current) use of inhaled steroids
CPT/HCPCS: 99285; 96374; 71045; 80048; 83880; 85025; 85610; 84484; 36415; 93005; J2919

== ENCOUNTER 2024-11-20 13:36 | Emergency (ER) | payer MEDICARE, MEDICAID ==
[~2024-11-20] VITALS: Ht 185.4 cm; Wt 54.0 kg
[~2024-11-20 13:36] MED LIST changes: +ALBU90AE INH; +AZIT500T2 MT; +BUDE6HFA INH; +LIDO-53 TP; -LIDO700A15 TP; +P50 MT; -TAMS-11 PO; +TAMS-54 PO
[2024-11-20 13:45] VITALS: O2SAT 96
[2024-11-20] MEDS ORDERED: GENTAMICIN 60MG PREMIX 50 ML IV SCH (14:00)
[2024-11-20] MEDS ORDERED: IPRATROPIUM BROMIDE (0.02%) 0.5MG/2.5ML NEB HHN SCH (14:00)
[2024-11-20] MEDS ORDERED: ALBUTEROL (0.083%) 2.5MG/3ML NEB HHN SCH (14:00)
[2024-11-20] MEDS: METHYLPREDNISOLONE SOD SUCC 125MG/2ML (ACT-O-VIAL) IV ONE (14:47)
[2024-11-20] MEDS: SODIUM CHLORIDE 0.9% (SEPSIS BOLUS) IV ONE (14:48)
[2024-11-20 15:00] VITALS: BP 105/61; PULSE 71; RESP 19; TEMP 36.9; O2SAT 98
[2024-11-20 15:04] LABS: BASOPHILS % 0.7 % (0.0-2.0); EOSINOPHILS % 2.0 % (0.0-5.0); HEMATOCRIT. 40.8 % (42.0-52.0); HEMOGLOBIN. 13.4 g/dL (14.0-18.0); LYMPHOCYTES % 13.5 % (20.0-50.0); MEAN PLATELET VOLUME 8.7 fl (7.4-10.4); MONOCYTES % 9.9 % (2.0-8.0); NEUTROPHILS % 73.9 % (40.0-76.0); PLATELET 281 x1000/uL (130-400); RED BLOOD CELL COUNT 4.35 mill/uL (4.7-6.1); RED CELL DISTRIBUTION WIDTH 14.7 % (11.6-14.6)
[2024-11-20] MEDS: AZITHROMYCIN 500MG/250ML 250 ML IV ONE (15:11)
[2024-11-20 15:18] LABS: INR 1.1
[2024-11-20 15:21] LABS: CREATININE 0.7 mg/dL (0.6-1.3); UREA NITROGEN BLOOD 9 mg/dL (9-23)
[2024-11-20 15:22] LABS: TROPONIN I HIGH SENSITIVITY < 4 ng/L (3.0-53)
[2024-11-20 15:23] LABS: ASPARTATE AMINOTRANSFERASE 20 IU/L (<34); BILIRUBIN DIRECT 0.2 mg/dL (<=3.0); BILIRUBIN TOTAL 0.6 mg/dL (0.1-1.0); PROTEIN TOTAL 5.8 g/dL (6.0-8.3)
== END 2024-11-20 15:41 | disposition left against medical advice (07) ==
LOC: ER 13:36 → CMPBEDREQ 16:10
DX: R07.89 Other chest pain (principal); J44.1 Chronic obstructive pulmonary disease with (acute) exacerbation; E11.9 Type 2 diabetes mellitus without complications; I10 Essential (primary) hypertension; Z53.29 Procedure and treatment not carried out because of patient's decision for other reasons; Z55.6 Problems related to health literacy; Z79.51 Long term (current) use of inhaled steroids; Z79.52 Long term (current) use of systemic steroids; Z79.82 Long term (current) use of aspirin; Z79.899 Other long term (current) drug therapy; Z88.0 Allergy status to penicillin; Z88.2 Allergy status to sulfonamides
CPT/HCPCS: 99285; 96365; 71045; 96375; 80076; 80048; 83880; 83605; 85025; 85610; 87040; 84484; 36415; 84145; 93005; J2919; J0456; J7030; J1580